=== PATIENT | male | born 1945 | race Caucasian/White ===

== ENCOUNTER 2021-07-25 15:35 | Emergency (ER) | payer OTHER, SELFPAY ==
[2021-07-25 15:58] VITALS: BP 118/73; PULSE 83; RESP 18; TEMP 36.5; O2SAT 98
[2021-07-25 19:29] LABS: Glucose Point of Care 233 mg/dl (65-105)
[2021-07-25 21:25] VITALS: BP 128/71; PULSE 83; RESP 16; O2SAT 100
[2021-07-25 21:44] LABS: Basophils Absolute Auto 0.1 K/mm3 (0.0-0.1); Basophils Percent Auto 0.6 % (0.2-1.2); Eosinophils Absolute Auto 0.1 K/mm3 (0-0.3); Hematocrit 38.7 % (42.0-52.0); Hemoglobin 12.1 g/dL (14.0-18.0); Immature Granulocyte Absolute 0.05 K/mm3 (0.00-0.031); Immature Granulocyte Percent A 0.6 % (0-0.5); Lymphocytes Percent Auto 27.7 % (18.3-44.2); Mean Corpuscular HGB Conc 31.3 g/dl (32-36); Mean Corpuscular Hemoglobin 29.2 pg (26-34); Mean Corpuscular Volume 93.5 fl (80-100); Mean Platelet Volume 10.5 fl (7.4-10.4); Monocytes Absolute Auto 0.9 K/mm3 (0.1-0.6); Monocytes Percent Auto 11.2 % (2.6-8.5); Neutrophils Absolute Auto 4.7 K/mm3 (1.3-6.7); Neutrophils Percent Auto 58.9 % (45.5-73.1); Platelet Count Result 302 k/mm3 (150-375); Red Blood Count 4.14 M/mm3 (4.6-6.20); Red Cell Distribution Width 17.3 % (11.5-14.5)
[2021-07-25 21:48] LABS: INR 1.1; Prothrombin Time 13.7 Seconds (11.1-14.7)
[2021-07-25 21:49] LABS: Partial Thromboplastin Time 27.4 SECONDS (22.3-36.8)
[2021-07-25 21:51] LABS: Alanine Aminotransferase 22 U/L (4-50); Albumin Level 4.2 g/dL (3.5-5.1); Alkaline Phosphatase 198 U/L (38-126); Anion Gap 11 mmol/L (8-16); Aspartate Amino Transferase 42 U/L (17-59); Bilirubin,Total 0.4 mg/dL (0.2-1.3); Blood Urea Nitrogen 100 mg/dL (9-20); Carbon Dioxide 30 mmol/L (22-30); Chloride 102 mmol/L (98-107); Estimated CRCL calculation 13 ml/min; Estimated Glomerular Filt Rate 15; Glucose 272 mg/dL (65-110); Potassium 4.6 mmol/L (3.4-5.0); Sodium 143 mmol/L (137-145)
[2021-07-25 23:25] LABS: Glucose Point of Care 240 mg/dl (65-105)
[2021-07-25 23:59] VITALS: BP 139/67; PULSE 78; RESP 17; TEMP 36.6; O2SAT 98
[2021-07-26] VITALS (16 sets, daily range): BP systolic 94–159; BP diastolic 65–74; PULSE 67–86; RESP 20; O2SAT 98–100
[2021-07-26] MEDS: SODIUM CHLORIDE 0.9% IV 1,000 ML 999 ML IV CONT (00:20)
--- NOTE | 2021-07-26 01:22 | PC.NURSE ---
Patient states he feels much better. ERP notified.
--- NOTE | 2021-07-26 01:42 | ED.GIBLEED ---
HPI - GI Bleed General Chief complaint: GI Bleed Stated complaint: bright red blood in stool. Time Seen by Provider: 07/25/21 23:22 History of Present Illness HPI Narrative: Patient is a 76-year-old male who presents ER with concerns for rectal bleeding. Reports yesterday he was straining to have bowel movement because he has been having small hard stools. When he finally had a large bowel movement he noted that there were streaks of blood mixed in with the stool. There is no large watery red bowel movement filling up the toilet with blood. This occurred 1 time. No additional bleeding since then. Patient has history of upper GI bleed that required blood transfusion several months back at [facility] after he had an open heart surgery. It was found that he had a bleed in his stomach that required a clip. This was performed by Dr. Cardoso. Patient still takes a baby aspirin but is on no other blood thinning medications. No chest pain or chest pressure. No loss consciousness. Patient does take iron. Related Data Allergies Allergy/AdvReac Type Severity Reaction Status Date / Time oxytetracycline Allergy Other Verified 07/25/21 15:38 [From Terramycin] Penicillins Allergy Other Verified 07/25/21 15:38 Review of Systems Review of Systems: All systems reviewed & are unremarkable except as noted in HPI and below Constitutional: Constitutional: Denies chills, Denies fever(s) and Denies weakness ENT: Denies dizziness and Denies sore throat Cardiovascular: Cardiovascular: Denies chest pain, Denies rapid heart rate and Denies radiating jaw, neck or arm pain Respiratory: Respiratory: Denies cough, Denies dyspnea and Denies wheezing Gastrointestinal: Gastrointestinal: Denies abdominal pain, Reports constipation, Denies nausea and Denies vomiting Comments: Blood per rectum PMFSH Past Medical History Medical History (Updated 07/26/21 @ 01:56 by Jass Ramirez MD) CKD (chronic kidney disease), stage V Coronary artery disease Diabetes Hypertension Upper GI bleed Surgical History Surgical History (Updated 07/26/21 @ 01:56 by Jass Ramirez MD) History of esophagogastroduodenoscopy (EGD) Hx of CABG Exam Narrative: GENERAL: Well-appearing, well-nourished, and in no acute distress. HEAD: Normocephalic, atraumatic. ENT: Mucous membranes moist. CHEST: Clear to auscultation. No respiratory distress. HEART: Regular rate and rhythm. Normal peripheral pulses. ABDOMEN: Soft, nontender, nondistended. External hemorrhoids or rectal fissures. Normal rectal tone. Hard small stool within the rectal vault. No gross blood on exam. Stool is guaiac positive. EXTREMITIES: Normal range of motion. No edema. SKIN: Warm, dry, no rash. NEURO: Alert and oriented x3. PSYCH: Normal mood and affect. Course Course Emergency Course: Orthostatics improved with IV fluid. Discussed at length with patient and family the patient's lab results, they do not know how to access my chart on the phone to give me comparable labs. Patient reports he is in CKD stage V. No active bleeding today and it was all yesterday. Encourage patient increase his fluid intake. Recommend he follow-up with his GI physician [facility] and if he is having additional issues he should take an ambulance to [facility]. Patient and family verbalized understanding. Vital Signs Vital signs: Vital Signs Temperature 97.7 F 07/25/21 15:58 Pulse Rate 83 07/25/21 15:58 Respiratory Rate 18 07/25/21 15:58 Blood Pressure 118/73 07/25/21 15:58 Pulse Oximetry 98 07/25/21 15:58 Temperature 97.9 F 07/25/21 23:59 Pulse Rate 77 07/26/21 01:18 Respiratory Rate 17 07/25/21 23:59 Blood Pressure 159/72 H 07/26/21 01:18 Pulse Oximetry 98 07/25/21 23:59 MDM - GI Bleed Lab Data Result diagrams: 07/25/21 21:31 07/25/21 21:31 Labs: Lab Results 07/25/21 07/25/21 07/25/21 Range/Units
== END 2021-07-26 01:58 | disposition home or self-care (01) ==
PROVIDERS: Emergency Provider Emergency Medicine; PCP Internal Medicine
DX: K62.5 Hemorrhage of anus and rectum (principal); E86.0 Dehydration; E11.22 Type 2 diabetes mellitus with diabetic chronic kidney disease; I12.0 Hypertensive chronic kidney disease with stage 5 chronic kidney disease or end stage renal disease; N18.5 Chronic kidney disease, stage 5; I25.10 Atherosclerotic heart disease of native coronary artery without angina pectoris; Z95.1 Presence of aortocoronary bypass graft
CPT/HCPCS: 36415; 80053; 82948; 85025; 85610; 85730; 86850; 86900; 86901; 96360; 99283; J7030

== ENCOUNTER 2021-10-20 16:11 | Outpatient (CLI) | payer OTHER, SELFPAY ==
[2021-10-20 17:08] LABS: Anion Gap 8 mmol/L (8-16); Blood Urea Nitrogen 110 mg/dL (9-20); Calcium 9.2 mg/dL (8.4-10.2); Carbon Dioxide 32 mmol/L (22-30); Chloride 100 mmol/L (98-107); Estimated Glomerular Filt Rate 14; Glucose 237 mg/dL (65-110); Potassium 3.7 mmol/L (3.4-5.0); Sodium 140 mmol/L (137-145)
[2021-10-20 17:15] LABS: NT Pro B Type Natriuretic Pept 1660 pg/mL (5-100)
== END 2021-10-20 16:12 | disposition home or self-care (01) ==
PROVIDERS: PCP Internal Medicine
DX: I50.43 Acute on chronic combined systolic (congestive) and diastolic (congestive) heart failure (principal); I25.118 Atherosclerotic heart disease of native coronary artery with other forms of angina pectoris; I48.0 Paroxysmal atrial fibrillation; I34.0 Nonrheumatic mitral (valve) insufficiency
CPT/HCPCS: 36415; 80048; 83880; 93798

== ENCOUNTER 2021-12-11 15:00 | Outpatient (RCR) | payer OTHER, SELFPAY ==
[2021-11-10 16:09] LABS: Glucose Point of Care 381 mg/dl (65-105)
[2021-12-08 16:12] LABS: Glucose Point of Care 116 mg/dl (65-105)
[2021-12-08 16:12] LABS: Glucose Point of Care 107 mg/dl (65-105)
== END 2021-12-11 18:02 | disposition home or self-care (01) ==
LOC: ANHCPREHAB 15:00
PROVIDERS: PCP Internal Medicine
DX: Z95.1 Presence of aortocoronary bypass graft (principal); I50.89 Other heart failure
CPT/HCPCS: 93798

== ENCOUNTER 2022-05-12 09:23 | Outpatient (CLI) | payer OTHER, SELFPAY ==
[2022-05-12 09:44] LABS: Basophils Absolute Auto 0.1 K/mm3 (0.0-0.1); Basophils Percent Auto 0.9 % (0.2-1.2); Eosinophils Absolute Auto 0.2 K/mm3 (0-0.3); Hematocrit 32.6 % (42.0-52.0); Hemoglobin 10.2 g/dL (14.0-18.0); Immature Granulocyte Absolute 0.02 K/mm3 (0.00-0.031); Immature Granulocyte Percent A 0.3 % (0-0.5); Lymphocytes Absolute Auto 2.35 K/mm3 (0.9-3.2); Lymphocytes Percent Auto 29.7 % (18.3-44.2); Mean Corpuscular HGB Conc 31.3 g/dl (32-36); Mean Corpuscular Hemoglobin 29.8 pg (26-34); Mean Corpuscular Volume 95.3 fl (80-100); Mean Platelet Volume 11.1 fl (7.4-10.4); Monocytes Percent Auto 12.7 % (2.6-8.5); Neutrophils Absolute Auto 4.2 K/mm3 (1.3-6.7); Neutrophils Percent Auto 53.4 % (45.5-73.1); Platelet Count Result 203 k/mm3 (150-375); Red Blood Count 3.42 M/mm3 (4.6-6.20); Red Cell Distribution Width 14.3 % (11.5-14.5); White Blood Count 7.9 K/mm3 (4.5-10.0)
[2022-05-12 09:56] LABS: Albumin Level 4.2 g/dL (3.5-5.1); Anion Gap 8 mmol/L (8-16); Blood Urea Nitrogen 117 mg/dL (9-20); Calcium 9.7 mg/dL (8.4-10.2); Carbon Dioxide 32 mmol/L (22-30); Chloride 101 mmol/L (98-107); Estimated Glomerular Filt Rate 20; Glucose 171 mg/dL (65-110); Phosphorus 4.6 mg/dL (2.5-4.5); Potassium 3.2 mmol/L (3.4-5.0); Sodium 141 mmol/L (137-145); Uric Acid 7.5 mg/dL (3.5-8.5)
[2022-05-12 10:06] LABS: Parathyroid Intact 35.7 pg/mL (7.5-53.5)
[2022-05-12 10:29] LABS: Appearance Urine Clear (Clear); Bilirubin Urine Negative (Negative); Blood Urine Trace-lysed (Negative); Color Urine Yellow (Yellow); Glucose Urine UA Negative (Negative); Ketones Urine Negative (Negative); Leukocyte Esterase Ur Negative LEU/UL (NEGATIVE); Nitrate Urine Negative (Negative); Protein Urine 1+ mg/dL (Negative); Urobilinogen Urine 0.2 mg/dL (<2.0); pH Urine 5.5 (5.0-9.0)
[2022-05-12 10:33] LABS: Creatinine Urine 33.9 mg/dL
[2022-05-12 11:00] LABS: Mucus Urine Rare /lpf; RBC Urine 0-2 /hpf (0-2); WBC Urine 0-3 /hpf (0-3)
[2022-05-12 11:02] LABS: Add Urine Microscopic? YES
[2022-05-12 11:03] LABS: MALB Creatinine Ratio 747.5 mg/g (0-30); Microalbumin Urine Random 253.4 mg/L (0-16.7)
== END 2022-05-12 09:24 | disposition home or self-care (01) ==
LOC: ANHLAB 09:26
PROVIDERS: PCP Internal Medicine; Visit Provider Internal Medicine Nephrology
DX: N18.4 Chronic kidney disease, stage 4 (severe) (principal)
CPT/HCPCS: 36415; 80069; 81001; 82043; 83970; 84550; 85025

== ENCOUNTER 2022-06-11 16:10 | Outpatient (CLI) | payer OTHER, SELFPAY ==
--- NOTE | ~2022-06-11 | US_ITS ---
US pelvic limited 06/11/2022 16:52 Indication: Prostatism. Procedure: High-resolution ultrasound of the pelvis using transabdominal technique Comparison: No prior studies for comparison. Findings: Prostate is enlarged measuring 5.1 x 4.1 x 3.3 cm for a volume of 36.07 cc. Prevoid bladder volume is 2 39 cc. Post void bladder volume is 38 cc. Bilateral ureteral jets are present. Impression: 1: Enlarged prostate gland. 2: Small post void residual. Reviewed, dictated and finalized at location A. STANT PROPERTY MANAGER Impression: 1: Enlarged prostate gland. 2: Small post void residual.
== END 2022-06-11 16:11 | disposition home or self-care (01) ==
LOC: ANHIMG 16:11
PROVIDERS: PCP Internal Medicine; Visit Provider Internal Medicine Nephrology
DX: N40.0 Benign prostatic hyperplasia without lower urinary tract symptoms (principal)
CPT/HCPCS: 76857

== ENCOUNTER 2022-07-02 17:05 | Emergency (ER) | payer OTHER, SELFPAY ==
[2022-07-02] VITALS (16 sets, daily range): BP systolic 113–144; BP diastolic 68–93; PULSE 66–89; RESP 11–31; TEMP 36.6–37.2; O2SAT 89–99
--- NOTE | ~2022-07-02 | CT_ITS ---
EXAMINATION: CT brain wo con DATE: 07/02/2022 18:27 INDICATION: Multiple falls with head injury TECHNIQUE: Computed tomography (CT) of the head was performed without intravenous contrast. Sagittal and coronal reconstructions were performed. The mA was adjusted according to patient size. Iterative reconstruction technique was employed. The dose-length product was 605.33 mGy-cm. COMPARISON: None FINDINGS: No fracture. Small regions of encephalomalacia consistent with old infarcts in the bilateral parietal lobes. Additional small old lacunar infarcts at the bilateral basal ganglia. There is moderate scatt ered white matter hypoattenuation consistent with chronic small vessel ischemic disease. No acute in tracranial hemorrhage, acute infarction or abnormal extra axial fluid collection. Symmetric prominenc e of the sulci consistent with mild age-appropriate diffuse cerebral volume loss. Ventricles are norm al and symmetric. No mass/mass effect. Changes of left intraocular lens replacement. The orbits, para nasal sinuses and mastoid air cells are normal. IMPRESSION: 1. No fracture or acute intracranial process. 2. A few small infarcts at the bilateral basal ganglia and bilateral parietal lobes. 3. Age-related changes including mild diffuse volume loss and moderate scattered white matter hypoatt enuation consistent with chronic small vessel ischemic disease. Reviewed, dictated and finalized at location A. REGISTER REPAIRER IMPRESSION: 1. No fracture or acute intracranial process. 2. A few small infarcts at the bilateral basal ganglia and bilateral parietal l obes. 3. Age-related changes including mild diffuse volume loss and moderate scattere d white matter hypoattenuation consistent with chronic small vessel ischemic di sease.
--- NOTE | ~2022-07-02 | CT_ITS ---
EXAMINATION: CT abdomen pelvis wo con DATE: 07/02/2022 18:34 INDICATION: Multiple falls. Vomiting. TECHNIQUE: Computed tomography (CT) of the abdomen and pelvis was performed without intravenous contr ast. Automated exposure control and iterative reconstruction technique were employed. The dose-length product was 689.34 mGy-cm. COMPARISON: None FINDINGS: Several small calcified nodules in the right middle and bilateral lower lobes along with calcified bi lateral hilar and mediastinal lymph nodes consistent with old granulomatous disease. Mild discoid ate lectasis in the lingula and right middle lobe. Mild cardiomegaly. Extensive atherosclerotic coronary artery calcifications. Postoperative change of prior median sternotomy and coronary artery bypass gra fting. No pericardial or pleural effusion. Small sliding-type hiatal hernia. Minimal ascites along th e normal liver and normal decompressed gallbladder. There are few small calcifications in the spleen consistent with old granulomatous disease. Mild fatty atrophy of the pancreas. Bilateral adrenal glan ds are normal. There is calcified atherosclerosis of the aorta and many of the other arteries includi ng multiple arteries at the bilateral renal coty. Mild bilateral diffuse renal cortical atrophy. Olamide ls including the appendix are normal. Mild mesenteric and retroperitoneal edema. There is haziness to the fat surrounding the normal partially decompressed bladder. Marked prostatomegaly. No abscess or free intraperitoneal gas. No pathologically enlarged abdominal or pelvic lymphadenopathy. Moderate th oracic and moderate to severe lower lumbar spondylosis. Chronic mild anterior wedging couple lower th oracic vertebral bodies along with bridging osteophytes at multiple levels consistent with diffuse id iopathic skeletal hyperostosis (DISH). IMPRESSION: 1. Nonspecific minimal ascites along the liver and gallbladder. 2. Mild cardiomegaly. 3. Small sliding-type hiatal hernia. 4. Mild haziness to the fat surrounding the normal-appearing partially decompressed bladder which cou ld be seen with cystitis. Correlate with urinalysis. 5. Prostatomegaly. Reviewed, dictated and finalized at location A. RDING STUDIO INTERN IMPRESSION: 1. Nonspecific minimal ascites along the liver and gallbladder. 2. Mild cardiomegaly. 3. Small sliding-type hiatal hernia. 4. Mild haziness to the fat surrounding the normal-appearing partially decompre ssed bladder which could be seen with cystitis. Correlate with urinalysis. 5. Prostatomegaly.
--- NOTE | ~2022-07-02 | CT_ITS ---
EXAMINATION: CT cervical spine wo con DATE: 07/02/2022 18:29 INDICATION: Multiple falls with head injury. TECHNIQUE: Computed tomography (CT) of the cervical spine was performed without intravenous contrast. Automated exposure control and iterative reconstruction technique were employed. The dose-length pro duct was 519.11 mGy-cm. COMPARISON: None FINDINGS: A degree lower cervical levocurvature. 1-2 mm anterolisthesis C4 on C5. C5-C6 anterior spinal fusion with anterior plate and screw fixation. Diffuse vertebral body heights are normal. No acute fracture. Severe disc height loss at C6-C7 with irregular endplates appear to be progressing pleural effusion but without plate and screw fixation. Mild disc height loss at C3-C4, C4-C5, C7-T1 and T1-T2. Moderat e disc height loss at T2-T3 and T3-T4. Mild hypertrophic endplate changes posteriorly at C5-C6 and C6 -C7 resulting in mild central canal stenosis. Multilevel moderate to severe bilateral cervical facet osteoarthritis along with bilateral moderate to severe uncovertebral osteoarthritis at many of the un fused cervical levels. This contributes to neural foraminal stenosis, moderate bilaterally at C3-C4 a nd C4-C5 and mild at many of the remaining cervical levels. Atherosclerotic calcific a cyst at the bi lateral carotid bulbs. Smooth septal line thickening consistent with mild pulmonary edema at the bila teral upper lung zones. IMPRESSION: 1. No acute osseous abnormality. 2. Mild cervical levocurvature with asymmetric anterior spinal fusion at C5-C6 and severe disc height loss consistent with the attempted anterior spinal fusion without a segmentation or severe spondylos is at C6-C7. 2. Mild to moderate spondylosis throughout the remainder of the cervical and visualized upper thoraci c spine. Reviewed, dictated and finalized at location A. CH CHECKER IMPRESSION: 1. No acute osseous abnormality. 2. Mild cervical levocurvature with asymmetric anterior spinal fusion at C5-C6 and severe disc height loss consistent with the attempted anterior spinal fusio n without a segmentation or severe spondylosis at C6-C7. 2. Mild to moderate spondylosis throughout the remainder of the cervical and vi sualized upper thoracic spine.
--- NOTE | 2022-07-02 17:23 | ECG_ITS ---
Measurements Intervals [place] Rate: 68 P: 49 IA: 201 QRS: -49 QRSD: 149 T: 91 QT: 465 QTc: 498 Interpretive Statements SINUS RHYTHM FREQUENT VENTRICULAR PREMATURE COMPLEXES LEFT AXIS DEVIATION BORDERLINE AV CONDUCTION DELAY POSSIBLE LEFT ATRIAL ENLARGEMENT INTRAVENTRICULAR CONDUCTION DELAY BORDERLINE ST-T WAVE ABNORMALITY- HIGH LATERAL LEADS BASELINE ARTIFACT- II, III ABNORMAL ECG NO PREVIOUS ECG AVAILABLE FOR COMPARISON Electronically Signed On 07-03-2022 6:40:36 HYDRAULIC DREDGE OPERATOR by Wilder Wesley D.O.
--- NOTE | 2022-07-02 17:34 | ECG_ITS ---
Measurements Intervals [place] Rate: 65 P: 52 AL: 203 QRS: -54 QRSD: 150 T: 90 QT: 477 QTc: 498 Interpretive Statements SINUS RHYTHM VENTRICULAR COUPLET AND VENTRICULAR PREMATURE COMPLEX BORDERLINE AV CONDUCTION DELAY LEFT BUNDLE BRANCH BLOCK WITH INTERMITTENT NARROW QRS COMPLEXES BASELINE ARTIFACT- I, III, AVR, AVL, AVF, V3-V6 ABNORMAL ECG NO PREVIOUS ECG AVAILABLE FOR COMPARISON Electronically Signed On 07-06-2022 7:55:52 CDT by Wilder Wesley D.O.
[2022-07-02 17:57] LABS: Basophils Absolute Auto 0.1 K/mm3 (0.0-0.1); Eosinophils Absolute Auto 0.1 K/mm3 (0-0.3); Eosinophils Percent Auto 1.5 % (0-4.4); Hematocrit 32.5 % (42.0-52.0); Hemoglobin 10.2 g/dL (14.0-18.0); Immature Granulocyte Absolute 0.04 K/mm3 (0.00-0.031); Immature Granulocyte Percent A 0.4 % (0-0.5); Lymphocytes Absolute Auto 1.15 K/mm3 (0.9-3.2); Lymphocytes Percent Auto 12.5 % (18.3-44.2); Mean Corpuscular HGB Conc 31.4 g/dl (32-36); Mean Corpuscular Hemoglobin 29.8 pg (26-34); Mean Platelet Volume 12.1 fl (7.4-10.4); Monocytes Absolute Auto 1.3 K/mm3 (0.1-0.6); Monocytes Percent Auto 14.6 % (2.6-8.5); Neutrophils Absolute Auto 6.4 K/mm3 (1.3-6.7); Platelet Count Result 234 k/mm3 (150-375); Red Blood Count 3.42 M/mm3 (4.6-6.20); Red Cell Distribution Width 17.1 % (11.5-14.5); White Blood Count 9.2 K/mm3 (4.5-10.0)
[2022-07-02 18:06] LABS: Appearance Urine Clear (Clear); Bacteria Urine None Seen /hpf; Bilirubin Urine Negative (Negative); Blood Urine 2+ (Negative); Color Urine Yellow (Yellow); Glucose Urine UA Negative (Negative); Ketones Urine Negative (Negative); Leukocyte Esterase Ur Negative LEU/UL (Negative); Nitrate Urine Negative (Negative); Non Pathogenic Casts 0-2; Protein Urine 2+ mg/dL (Negative); RBC Urine 0-2 /hpf (0-2); Specific Grav Ur 1.014 (1.001-1.035); Squamous Epithelial Cell Urine None seen /hpf (Few); Urobilinogen Urine 0.2 mg/dL (<2.0); WBC Urine 0-5 /hpf
[2022-07-02 18:11] LABS: Add Urine Microscopic? YES; Alanine Aminotransferase 102 U/L (6-50); Alkaline Phosphatase 165 U/L (38-126); Anion Gap 10 mmol/L (8-16); Aspartate Amino Transferase 169 U/L (17-59); Bilirubin,Total 0.7 mg/dL (0.2-1.3); Calcium 9.8 mg/dL (8.4-10.2); Carbon Dioxide 26 mmol/L (22-30); Chloride 102 mmol/L (98-107); Estimated CRCL calculation 13 ml/min; Estimated Glomerular Filt Rate 14; Glucose 174 mg/dL (65-110); Lipase 152 U/L (23-300); Potassium 3.8 mmol/L (3.4-5.0); Sodium 138 mmol/L (137-145)
--- NOTE | 2022-07-02 18:15 | ED.NAVMDI ---
HPI - Nausea/Vomiting/Diarrhea General Chief complaint: Nausea/Vomiting/Diarrhea Stated complaint: ncreased falls, n/v Time Seen by Provider: 07/02/22 17:19 History of Present Illness HPI Narrative: Patient is a 77-year-old male with a history of hypertension, CKD, hyperlipidemia presenting with falls. Patient is coming from a nursing facility. He is reportedly had multiple falls over the last several days. Patient is a poor historian. He states that he fell once several days ago. States that he struck his head but did not lose consciousness. Denies headaches, neck pain, back pain, numbness or weakness. Today while in the dinner room, patient was noted to have 2 episodes of emesis so EMS was called. Currently, the patient denies any complaints other than feeling like he needs to urinate. Denies current nausea, abdominal pain, diarrhea, constipation, dysuria. Denies fevers, chest pain, shortness of breath, cough. Related Data Home Medications Medication Instructions Recorded Confirmed acetaminophen 500 mg tablet 1,000 mg PO QID PRN Pain 09/19/21 07/03/22 aspirin 81 mg tablet 81 mg PO DAILY 09/19/21 07/03/22 atorvastatin 40 mg tablet 40 mg PO HS 09/19/21 07/03/22 fenofibrate 120 mg tablet 134 mg PO DAILY 09/19/21 07/03/22 furosemide 40 mg tablet 40 mg PO BID 09/19/21 07/03/22 metoprolol succinate 25 mg 25 mg PO DAILY 09/19/21 07/03/22 tablet,extended release 24 hr omega 6-gbd-okm-fish oil 1,200 mg 1,200 cap PO DAILY 09/19/21 07/03/22 (144 mg-216 mg) capsule (Fish Oil) pantoprazole 40 mg tablet,delayed 40 mg PO BID 09/19/21 07/03/22 release polysaccharide iron complex 150 mg 150 mg PO BID 09/19/21 07/03/22 iron capsule (iFerex 150) tamsulosin 0.4 mg capsule 0.4 mg PO HS 09/19/21 07/03/22 tramadol 50 mg tablet 50 mg PO Q6H 09/19/21 07/03/22 Tums 500 500 mg PO DAILY PRN Acid Reflux 07/03/22 07/03/22 allopurinol 100 mg tablet 100 mg PO DAILY 07/03/22 07/03/22 calcitriol 0.25 mcg capsule 0.25 mcg PO DAILY 07/03/22 07/03/22 insulin aspart U-100 100 unit/mL 1 sliding scale dose subcut 07/03/22 07/03/22 subcutaneous solution (Novolog USEASDIRECTD U-100 Insulin aspart) insulin glargine U-300 conc 300 26 unit subcut DAILY 07/03/22 07/03/22 unit/mL (1.5 mL) subcutaneous pen (Toujeo SoloStar U-300 Insulin) polyethylene glycol 3350 17 gram 17 g PO DAILY PRN Constipation 07/03/22 07/03/22 oral powder packet (Miralax) senna 374 mg tablet 374 mg PO DAILY PRN Constipation 07/03/22 07/03/22 Allergies Allergy/AdvReac Type Severity Reaction Status Date / Time oxytetracycline Allergy Other Verified 07/03/22 16:04 [From Terramycin] Penicillins Allergy Other Verified 07/03/22 16:04 Review of Systems Review of Systems: All systems reviewed & are unremarkable except as noted in HPI and below PMFSH Past Medical History Medical History Chronic kidney disease, stage 4 (severe) Chronic pain syndrome Coronary artery disease Heart failure with reduced ejection fraction EF reportedly as low as 45 to 50%. Hypertension Insulin dependent type 2 diabetes mellitus Transient ischemic attack Upper GI bleed Surgical History Surgical History History of coronary artery bypass graft History of coronary artery stent placement History of esophagogastroduodenoscopy (EGD) Family History Family History Other Diabetes mellitus Hypertension Social History Social History Social History: Surrogate medical decision maker: Caty Staley, daughter. Code status: Full code. Smoking status: Never smoker Alcohol intake: never Substance use: never Lack of Transportation: YES Lack of Food: Never True Current Housing: I Have Housing Concerned About Future Housing: No Difficulty Paying Gas/Electric Bills
--- NOTE | 2022-07-02 18:26 | PC.NURSE ---
Pt to CT
[2022-07-02 18:38] LABS: Blood Urea Nitrogen 137 mg/dL (9-20)
[2022-07-02] MEDS: LACTATED RINGERS 1,000 ML 999 ML IV CONT (19:04)
[2022-07-02] MEDS: HYDROcodone/acetaminophen (*CRX) 5-325 MG TABLET 1 TAB PO (19:47)
== END 2022-07-02 22:17 ==
PROVIDERS: Emergency Provider Emergency Medicine; PCP Internal Medicine
DX: N17.9 Acute kidney failure, unspecified (principal); I12.9 Hypertensive chronic kidney disease with stage 1 through stage 4 chronic kidney disease, or unspecified chronic kidney disease; E11.22 Type 2 diabetes mellitus with diabetic chronic kidney disease; N18.4 Chronic kidney disease, stage 4 (severe); Z86.73 Personal history of transient ischemic attack (TIA), and cerebral infarction without residual deficits; Z95.1 Presence of aortocoronary bypass graft; Z95.5 Presence of coronary angioplasty implant and graft; Z79.82 Long term (current) use of aspirin; Z79.4 Long term (current) use of insulin; R00.8 Other abnormalities of heart beat; I44.7 Left bundle-branch block, unspecified; R94.31 Abnormal electrocardiogram [ECG] [EKG]; W19.XXXA Unspecified fall, initial encounter
CPT/HCPCS: 36415; 70450; 72125; 74176; 80053; 81001; 83690; 85025; 93005; 96360; 96361; 99284; A9270; J7120

== ENCOUNTER 2022-07-03 12:06 | Inpatient (IN) | payer OTHER, MEDICAID, SELFPAY ==
[2022-07-03] VITALS (21 sets, daily range): BP systolic 122–146; BP diastolic 65–89; PULSE 51–91; RESP 13–28; TEMP 36.2–37.2; O2SAT 90–99; BMI 28.0
--- NOTE | ~2022-07-03 | XR_ITS ---
EXAMINATION: XR chest 2V DATE: 07/06/2022 09:31 INDICATION: Congestive heart failure. TECHNIQUE: Frontal and lateral views of the chest were obtained. COMPARISON: CT abdomen and pelvis 07/02/2022 FINDINGS: There is a diffuse interstitial pattern, consistent with mild pulmonary edema. No pleural e ffusion or pneumothorax. Cardiomegaly is noted. Median sternotomy wires and mediastinal surgical clip s are seen, likely from prior coronary artery bypass grafting. IMPRESSION: 1. Mild pulmonary edema. 2. Cardiomegaly. Reviewed, dictated and finalized at location A.
--- NOTE | ~2022-07-03 | CT_ITS ---
EXAMINATION: CT brain wo con DATE: 07/04/2022 08:34 INDICATION: Dizziness and vision changes post fall one day prior TECHNIQUE: Computed tomography (CT) of the head was performed without intravenous contrast. Sagittal and coronal reconstructions were performed. The mA was adjusted according to patient size. Iterative reconstruction technique was employed. The dose-length product was 605.33 mGy-cm. COMPARISON: head CT dated 07/02/2022 FINDINGS: No fracture. Unchanged small regions of encephalomalacia consistent with old infarcts in the right oc cipital and bilateral parietal lobes. Additional small old lacunar infarcts at the bilateral basal ga nglia. Moderate scattered white matter hypoattenuation consistent with chronic small vessel ischemic disease. No acute intracranial hemorrhage, acute infarction or abnormal extra axial fluid collection. Symmetric prominence of the sulci consistent with mild age-appropriate diffuse cerebral volume loss. Ventricles are normal and symmetric. No mass/mass effect. Changes of left intraocular lens replaceme nt. The orbits, paranasal sinuses and mastoid air cells are normal. Intracranial calcified cerebral a therosclerosis is noted. IMPRESSION: 1. No fracture or acute intracranial process. 2. A few small old infarcts at the bilateral basal ganglia and bilateral parietal and right occipital lobes. 3. Age-related changes including mild diffuse volume loss and moderate scattered white matter hypoattenuation consistent with chronic small vessel ischemic disease. Reviewed, dictated and finalized at location A. TRUCTION PROJECT MGR IMPRESSION: 1. No fracture or acute intracranial process. 2. A few small old infarcts at the bilateral basal ganglia and bilateral pariet al and right occipital lobes. 3. Age-related changes including mild diffuse volume loss and moderate scattere d white matter hypoattenuation consistent with chronic small vessel ischemic disease.
--- NOTE | ~2022-07-03 | US_ITS ---
EXAMINATION: US abdomen limited DATE: 07/04/2022 08:52 INDICATION: Elevated liver function tests TECHNIQUE: Multiple grayscale and Doppler ultrasound images of the abdomen were obtained. COMPARISON: 07/02/2022 FINDINGS: The pancreatic head and body are normal in appearance. The pancreatic tail is not visualized. The vi sualized proximal to mid inferior vena cava is normal. Liver has normal echogenicity and contour, wit h a smooth surface. No liver lesion identified. No intrahepatic biliary duct dilation suspected. Port al venous flow was seen in the hepatopetal, normal direction and has normal Doppler waveform. The gal lbladder is normal in appearance. There is no cholelithiasis. The common bile duct measures 5-6 and mm, which is normal. Small amount of perihepatic ascites. Sonographic Gross sign was reported as neg ative by the supervisor plating and point assembly.Visualized portion of the right kidney demonstrates normal contour and echog enicity without hydronephrosis. IMPRESSION: 1. Nonspecific small amount of perihepatic ascites. Otherwise normal right upper quadrant ultrasound. Reviewed, dictated and finalized at location A. ITY TECHNICIAN IMPRESSION: 1. Nonspecific small amount of perihepatic ascites. Otherwise normal right uppe r quadrant ultrasound.
--- NOTE | ~2022-07-03 | US_ITS ---
EXAMINATION: US renal BI DATE: 07/04/2022 11:20 INDICATION: Renal insufficiency with elevated creatinine TECHNIQUE: Multiple ultrasound grayscale images of the kidneys were obtained. COMPARISON: CT dated 07/12/2022 FINDINGS: The right kidney measures 11.5 x 6.3 x 4.6 cm. The left kidney measures 11.2 x 6.1 x 5.5 cm. The kidn eys demonstrate normal echogenicity. There is no hydronephrosis in either kidney. No stones identifi ed. The bladder is normal. IMPRESSION: 1. Normal kidneys without hydronephrosis. Reviewed, dictated and finalized at location A. ISHING SPECIALIST
--- NOTE | ~2022-07-03 | MR_ITS ---
EXAMINATION: MR brain/brain stem wo con DATE: 07/04/2022 09:05 INDICATION: Visual changes, dizziness and frequent falls TECHNIQUE: Magnetic resonance imaging (MRI) of the brain and brainstem was performed without intraven ous contrast. Sequences included sagittal and axial T1-weighted SE, axial diffusion-weighted FS SE, a xial T2*-weighted GRE, axial T2-weighted FLAIR, and axial T2-weighted FSE. Postcontrast axial and cor onal T1-weighted SE was obtained. Apparent diffusion coefficient (ADC) maps were created. COMPARISON: CT dated 07/02/2022 FINDINGS: Small region of encephalomalacia consistent with chronic infarcts in the bilateral parietal and right occipital lobes. Additional small old lacunar infarcts at the bilateral basal ganglia. There are no areas of restricted diffusion to suggest acute infarction. No intracranial hemorrhage or abnormal int racranial mass lesion. There are scattered areas of nonspecific increased T2-weighted signal intensit y in the cerebral white matter, predominantly involving the deep and periventricular white matter. Th ere are no intraparenchymal signal abnormalities seen on the other pulse sequences. Symmetric promine nce of the sulci consistent with mild age-appropriate diffuse cerebral volume loss. The ventricles a re symmetric and normal in size. There are no abnormal extra-axial fluid collections. Flow voids are seen in the cerebral arteries on the T2-weighted sequences consistent with their expected patency. Le ft vertebral artery is dominant. Changes of left intraocular lens replacement. Visualized orbits and soft tissues are unremarkable. IMPRESSION: 1. No acute intracranial process. 2. Small old infarcts at the bilateral basal ganglia, right occipital and bilateral parietal lobes Reviewed, dictated and finalized at location A. R TESTING SUPERVISOR IMPRESSION: 1. No acute intracranial process. 2. Small old infarcts at the bilateral basal ganglia, right occipital and bilat eral parietal lobes
--- NOTE | 2022-07-03 12:27 | ED.GENADULT ---
HPI - General Adult General Chief complaint: Weakness Stated complaint: weakness Time Seen by Provider: 07/03/22 12:07 History of Present Illness HPI narrative: 77-year-old male with history of chronic kidney disease, hypertension, diabetes presenting the emergency department for increased generalized weakness. Patient was evaluated in the emergency department yesterday and was found to have a significant increase in his creatinine and BUN. Patient also had a work-up for injuries which showed negative CTs. Patient was offered admission yesterday but declined. Patient reports today he had increased generalized weakness and did have a short period of double vision and presented to the emergency department for evaluation. Patient states he is willing to be admitted at this time. At time of evaluation patient denies any chest pain shortness of breath nausea vomiting diarrhea dizziness lightheadedness weakness or double vision. Related Data Home Medications Medication Instructions Recorded Confirmed acetaminophen 500 mg tablet 1,000 mg PO QID PRN Pain 09/19/21 07/03/22 aspirin 81 mg tablet 81 mg PO DAILY 09/19/21 07/03/22 atorvastatin 40 mg tablet 40 mg PO HS 09/19/21 07/03/22 fenofibrate 120 mg tablet 134 mg PO DAILY 09/19/21 07/03/22 furosemide 40 mg tablet 40 mg PO BID 09/19/21 07/03/22 metoprolol succinate 25 mg 25 mg PO DAILY 09/19/21 07/03/22 tablet,extended release 24 hr omega 0-frj-zzk-fish oil 1,200 mg 1,200 cap PO DAILY 09/19/21 07/03/22 (144 mg-216 mg) capsule (Fish Oil) pantoprazole 40 mg tablet,delayed 40 mg PO BID 09/19/21 07/03/22 release polysaccharide iron complex 150 mg 150 mg PO BID 09/19/21 07/03/22 iron capsule (iFerex 150) tamsulosin 0.4 mg capsule 0.4 mg PO HS 09/19/21 07/03/22 tramadol 50 mg tablet 50 mg PO Q6H 09/19/21 07/03/22 Tums 500 500 mg PO DAILY PRN Acid Reflux 07/03/22 07/03/22 allopurinol 100 mg tablet 100 mg PO DAILY 07/03/22 07/03/22 calcitriol 0.25 mcg capsule 0.25 mcg PO DAILY 07/03/22 07/03/22 insulin aspart U-100 100 unit/mL 1 sliding scale dose subcut 07/03/22 07/03/22 subcutaneous solution (Novolog USEASDIRECTD U-100 Insulin aspart) insulin glargine U-300 conc 300 26 unit subcut DAILY 07/03/22 07/03/22 unit/mL (1.5 mL) subcutaneous pen (Toujeo SoloStar U-300 Insulin) polyethylene glycol 3350 17 gram 17 g PO DAILY PRN Constipation 07/03/22 07/03/22 oral powder packet (Miralax) senna 374 mg tablet 374 mg PO DAILY PRN Constipation 07/03/22 07/03/22 Allergies Allergy/AdvReac Type Severity Reaction Status Date / Time oxytetracycline Allergy Other Verified 07/03/22 16:04 [From Terramycin] Penicillins Allergy Other Verified 07/03/22 16:04 Review of Systems Review of Systems: All systems reviewed & are unremarkable except as noted in HPI and below PMFSH Past Medical History Medical History CKD (chronic kidney disease), stage V Coronary artery disease Diabetes Hypertension Upper GI bleed Surgical History Surgical History History of esophagogastroduodenoscopy (EGD) Hx of CABG Social History Social History Smoking status: Never smoker Alcohol intake: never Substance use: never Lack of Transportation: YES Lack of Food: Never True Current Housing: I Have Housing Concerned About Future Housing: No Difficulty Paying Gas/Electric Bills: No Difficulty Paying for Meds: No Currently Unemployed: No Education: Bachelor's Degree Difficulty w/ Childcare or Family Care: No Spiritual care concerns: No Exam Narrative: APPEARANCE: Well appearing, no pain, no distress, well-nourished. HEAD: normocephalic, atraumatic. EYES: PERRLA/EOMI, conjunctivae clear. NOSE: Normal no drainage NECK: Supple. No adenopathy, no masses. RESPIRATORY: Airway patent, respirations nonlabored
[2022-07-03 12:32] LABS: Basophils Absolute Auto 0.1 K/mm3 (0.0-0.1); Basophils Percent Auto 0.6 % (0.2-1.2); Eosinophils Absolute Auto 0.2 K/mm3 (0-0.3); Eosinophils Percent Auto 2.3 % (0-4.4); Hematocrit 31.5 % (42.0-52.0); Hemoglobin 10.2 g/dL (14.0-18.0); Immature Granulocyte Absolute 0.04 K/mm3 (0.00-0.031); Immature Granulocyte Percent A 0.4 % (0-0.5); Lymphocytes Absolute Auto 1.45 K/mm3 (0.9-3.2); Lymphocytes Percent Auto 15.2 % (18.3-44.2); Mean Corpuscular HGB Conc 32.4 g/dl (32-36); Mean Corpuscular Hemoglobin 29.7 pg (26-34); Mean Corpuscular Volume 91.6 fl (80-100); Mean Platelet Volume 12.5 fl (7.4-10.4); Monocytes Absolute Auto 1.4 K/mm3 (0.1-0.6); Monocytes Percent Auto 14.6 % (2.6-8.5); Neutrophils Absolute Auto 6.4 K/mm3 (1.3-6.7); Neutrophils Percent Auto 66.9 % (45.5-73.1); Platelet Count Result 231 k/mm3 (150-375); Red Blood Count 3.44 M/mm3 (4.6-6.20); Red Cell Distribution Width 17.1 % (11.5-14.5); White Blood Count 9.6 K/mm3 (4.5-10.0)
[2022-07-03 12:52] LABS: Alanine Aminotransferase 126 U/L (6-50); Albumin Level 3.8 g/dL (3.5-5.1); Alkaline Phosphatase 161 U/L (38-126); Anion Gap 10 mmol/L (8-16); Aspartate Amino Transferase 214 U/L (17-59); Bilirubin,Total 0.8 mg/dL (0.2-1.3); Calcium 9.6 mg/dL (8.4-10.2); Carbon Dioxide 27 mmol/L (22-30); Chloride 102 mmol/L (98-107); Estimated CRCL calculation 13 ml/min; Estimated Glomerular Filt Rate 15; Glucose 126 mg/dL (65-110); Potassium 3.9 mmol/L (3.4-5.0); Sodium 139 mmol/L (137-145)
[2022-07-03 13:39] LABS: Influenza A QL RT-PCR Negative (Negative); Influenza B QL RT-PCR Negative (Negative); RSV RNA, RT-PCR Negative (Negative); SARS-CoV-2 RNA PCR Negative
[2022-07-03 13:39] LABS: Blood Urea Nitrogen 138 mg/dL (9-20)
[2022-07-03 14:26] LABS: Creatine Kinase 808 U/L (55-170)
[2022-07-03] MEDS: HYDROcodone/acetaminophen (*CRX) 5-325 MG TABLET 1 TAB PO (14:39)
--- NOTE | 2022-07-03 15:34 | ADMGEN ---
This patient, Patricio Torres, was admitted to Medical Room 240-01. Patient oriented to hospital policies and general routines including ID bracelet, bed and alarms, visiting hours, pain management, procedures, bathroom and other care routines, personal items, smoking policy, room service/diet, and visiting hours. Information on how to activate the Rapid Response Team has been discussed. Patient is encouraged to report perceived risks to care and to ask questions if they do not understand what they are told or what they should do.
[2022-07-03] MEDS: SODIUM CHLORIDE 0.9% IV 1,000 ML 250 ML IV CONT (16:58)
[2022-07-03 17:09] LABS: Glucose Point of Care 106 mg/dl (65-105)
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
[2022-07-03 21:01] LABS: Glucose Point of Care 142 mg/dl (65-105)
[2022-07-03 22:04] LABS: Acetaminophen < 10 ug/mL (10-30)
[2022-07-03 22:05] LABS: INR 1.5; Prothrombin Time 17.7 Seconds (11.1-14.7)
[2022-07-03 22:08] LABS: CRP 3.7 mg/dL (<1.0); Lipase 130 U/L (23-300)
[2022-07-03 22:10] LABS: Hemoglobin A1C 7.7 % (<5.7)
[2022-07-03 22:12] LABS: Anion Gap 7 mmol/L (8-16); Calcium 9.5 mg/dL (8.4-10.2); Carbon Dioxide 27 mmol/L (22-30); Chloride 103 mmol/L (98-107); Creatine Kinase 656 U/L (55-170); Estimated CRCL calculation 13 ml/min; Estimated Glomerular Filt Rate 15; Glucose 125 mg/dL (65-110); Potassium 3.5 mmol/L (3.4-5.0); Sodium 137 mmol/L (137-145)
[2022-07-03] MEDS: TAMSULOSIN HCL 0.4 MG CAPSULE PO (22:18)
[2022-07-03] MEDS: traMADol HCL (*CRX) 50 MG TABLET PO (22:19)
[2022-07-03 22:47] LABS: Hepatitis B Surface Antigen Negative (Negative)
[2022-07-03 22:52] LABS: Blood Urea Nitrogen 130 mg/dL (9-20)
[2022-07-03 22:53] LABS: HAV RESULT Negative (Negative); Hepatitis B Core IgM Result Negative (Negative)
[2022-07-03 23:05] LABS: Hepatitis C Virus Antibody Negative (Negative)
[2022-07-04] VITALS (12 sets, daily range): BP systolic 114–140; BP diastolic 55–80; PULSE 53–81; RESP 20–21; TEMP 36.3–36.6; O2SAT 98–100
[2022-07-04 05:28] LABS: Hematocrit 30.6 % (42.0-52.0); Hemoglobin 9.7 g/dL (14.0-18.0); Mean Corpuscular HGB Conc 31.7 g/dl (32-36); Mean Corpuscular Hemoglobin 29.3 pg (26-34); Mean Corpuscular Volume 92.4 fl (80-100); Mean Platelet Volume 12.1 fl (7.4-10.4); Platelet Count Result 209 k/mm3 (150-375); Red Blood Count 3.31 M/mm3 (4.6-6.20); Red Cell Distribution Width 17.2 % (11.5-14.5)
[2022-07-04] MEDS: traMADol HCL (*CRX) 50 MG TABLET PO ×4 (05:48→23:40)
[2022-07-04 05:53] LABS: Alanine Aminotransferase 110 U/L (6-50); Albumin Level 3.5 g/dL (3.5-5.1); Alkaline Phosphatase 129 U/L (38-126); Anion Gap 8 mmol/L (8-16); Aspartate Amino Transferase 160 U/L (17-59); Bilirubin,Total 0.7 mg/dL (0.2-1.3); Blood Urea Nitrogen > 120 mg/dL (9-20); Calcium 9.2 mg/dL (8.4-10.2); Carbon Dioxide 26 mmol/L (22-30); Chloride 105 mmol/L (98-107); Estimated CRCL calculation 14 ml/min; Estimated Glomerular Filt Rate 15; Glucose 53 mg/dL (65-110); Potassium 2.9 mmol/L (3.4-5.0); Sodium 139 mmol/L (137-145)
--- NOTE | 2022-07-04 06:08 | PC.NURSE ---
0550 LAB REPORTED CRITICAL GLUCOSE OF 53. PATIENT REFUSES GLUCOSE GEL, TOOK 4 OZ OF APPLE JUICE.
[2022-07-04 06:47] LABS: Glucose Point of Care 60 mg/dl (65-105)
[2022-07-04 06:47] LABS: Glucose Point of Care 97 mg/dl (65-105)
[2022-07-04 07:34] LABS: Iron 48 ug/dL (49-181)
[2022-07-04 07:36] LABS: Lactate Dehydrogenase 609 U/L (120-246)
[2022-07-04 07:44] LABS: Percent Iron Saturation 17 % (20-50)
[2022-07-04 07:45] LABS: NT Pro B Type Natriuretic Pept > 30000 pg/mL (19.9-100); Transferrin 177 mg/dL (206-381)
[2022-07-04 08:25] LABS: Glucose Point of Care 102 mg/dl (65-105)
[2022-07-04 08:43] LABS: Folic Acid > 20.0 ng/mL (2.76->20)
[2022-07-04 09:17] LABS: Hepatitis B Surface Anti Res Negative; Hepatitis C Virus Antibody Negative (Negative)
--- NOTE | 2022-07-04 09:30 | P.PNIM_ITS ---
Progress Note: A&P Assessment and Plan (1) Acute on chronic renal failure: Code(s): N17.9 - Acute kidney failure, unspecified; N18.9 - Chronic kidney disease, unspecified Status: Acute Assessment and Plan: * Chronic renal failure Stage 5 * BUN/Cr upon arrival was 138/4.00 * Baseline creatinine does appear to be 3.00-4.00 * Urine labs sodium: 38, Urea 894, Creatinine 63.6 * Fena score 1.6 intrinsic * Renal ultrasound Normal kidney without hydronephrosis * Trend labs * Nephrology consulted thank you for your help * Hep B, C, and A labs for possible dialysis ordered * Trend urine output * Daily weights (2) Transaminitis: Code(s): R74.01 - Elevation of levels of liver transaminase levels Status: Acute Assessment and Plan: * AST/ALT 169/102 alk phos 165 on 07/02/22 * AST/ALT 214/126 alk phos 161 on admission * Currently trending down AST/ALT 160/110 alk phos 129 * Hep panel negative * RUQ ultrasound Nonspecific small amount of perihepatic ascites. Otherwise normal right upper quadrant ultrasound. * Continue to trend labs * CT of the abdomen on 07/02/22 did show minimal ascites along the liver and gallbladder * Stable at this time (3) Elevated creatine kinase: Code(s): R74.8 - Abnormal levels of other serum enzymes Status: Acute Assessment and Plan: * CK upon admission is 801 * Currently 460 * IV fluids given * Need to monitor fluids carefully with renal failure * Trending down * Seems stable * Continue to trend (4) Heart failure with reduced ejection fraction: Code(s): I50.20 - Unspecified systolic (congestive) heart failure Status: Acute Assessment and Plan: * Chronic diastolic heart failure * Echo ordered * Trend urine output * Most likely secondary to renal failure * BNP >26327 * Trend daily weights * Know type and chronicity will be evaluated post echo (5) Generalized weakness: Code(s): R53.1 - Weakness Status: Acute Assessment and Plan: * Notable frequent falls, lightheadedness recently * CT of the head from 07/02/22 showed no acute findings * Repeat CT of the head no acute intracranial process, few small old infarcts, age related changes * MRI of the brain No acute intracranial process, 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, right occipital and bilateral parietal lobes * orthostatic blood pressures stable with no hypo/hypertension noted * Could be related to renal failure, fluid volume shifts, hypotension, stroke (6) Diplopia: Code(s): H53.2 - Diplopia Status: Acute Assessment and Plan: * Complaints of visual changes * Head CT from 07/02/22 negative for any acute findings * MRI of the Brain no new stroke noted * Repeat head CT no new stroke or intracranial process noted * Continue to trend symptoms (7) Insulin dependent type 2 diabetes mellitus: Code(s): E11.9 - Type 2 diabetes mellitus without complications; Z79.4 - half-way (current) use of insulin Status: Acute Assessment and Plan: * Glucose appears to be a bit unstable * Labs report glucose of 53, POC of 97 * Hold home insulins * Trend glucose * A1c 7.7 * Diabetic diet * Accu-Cheks AC/HS * adjust therapy as indicated * Hypoglyce
--- NOTE | 2022-07-04 09:30 | PM.IMPN ---
Progress Note: A&P Assessment and Plan (1) Acute on chronic renal failure: Code(s): N17.9 - Acute kidney failure, unspecified; N18.9 - Chronic kidney disease, unspecified Status: Acute Assessment and Plan: Chronic renal failure Stage 5 BUN/Cr upon arrival was 138/4.00 Baseline creatinine does appear to be 3.00-4.00 Urine labs sodium: 38, Urea 894, Creatinine 63.6 Fena score 1.6 intrinsic Renal ultrasound Normal kidney without hydronephrosis Trend labs Nephrology consulted thank you for your help Hep B, C, and A labs for possible dialysis ordered Trend urine output Daily weights (2) Transaminitis: Code(s): R74.01 - Elevation of levels of liver transaminase levels Status: Acute Assessment and Plan: AST/ALT 169/102 alk phos 165 on 07/02/22 AST/ALT 214/126 alk phos 161 on admission Currently trending down AST/ALT 160/110 alk phos 129 Hep panel negative RUQ ultrasound Nonspecific small amount of perihepatic ascites. Otherwise normal right upper quadrant ultrasound. Continue to trend labs CT of the abdomen on 07/02/22 did show minimal ascites along the liver and gallbladder Stable at this time (3) Elevated creatine kinase: Code(s): R74.8 - Abnormal levels of other serum enzymes Status: Acute Assessment and Plan: CK upon admission is 801 Currently 460 IV fluids given Need to monitor fluids carefully with renal failure Trending down Seems stable Continue to trend (4) Heart failure with reduced ejection fraction: Code(s): I50.20 - Unspecified systolic (congestive) heart failure Status: Acute Assessment and Plan: Chronic diastolic heart failure Echo ordered Trend urine output Most likely secondary to renal failure BNP >11832 Trend daily weights Know type and chronicity will be evaluated post echo (5) Generalized weakness: Code(s): R53.1 - Weakness Status: Acute Assessment and Plan: Notable frequent falls, lightheadedness recently CT of the head from 07/02/22 showed no acute findings Repeat CT of the head no acute intracranial process, few small old infarcts, age related changes MRI of the brain No acute intracranial process, 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, right occipital and bilateral parietal lobes orthostatic blood pressures stable with no hypo/hypertension noted Could be related to renal failure, fluid volume shifts, hypotension, stroke (6) Diplopia: Code(s): H53.2 - Diplopia Status: Acute Assessment and Plan: Complaints of visual changes Head CT from 07/02/22 negative for any acute findings MRI of the Brain no new stroke noted Repeat head CT no new stroke or intracranial process noted Continue to trend symptoms (7) Insulin dependent type 2 diabetes mellitus: Code(s): E11.9 - Type 2 diabetes mellitus without complications; 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 He currently stated that he is feeling ok. He also stated that he is just board. Orthostatic blood pressures obtained and were stable with no notable hypotension or hypertension. Dr. Eric nielsen
--- NOTE | 2022-07-04 09:51 | PM.CNNEP ---
Assessment and Plan Assessment and plan (1) Chronic kidney disease, stage 5: Code(s): N18.5 - Chronic kidney disease, stage 5 Status: Acute Assessment and Plan: the patient has chronic kidney disease stage 5. He has itching which seems to be is only symptom. He does have dizziness and ataxia which I suppose could be part of the uremic syndrome, however need to rule out other causes as EDMUND Wood is doing. His creatinine is stable but his BUN is higher. He looks euvolemic on physical exam, but may be a little dry. Will get a chest x-ray to make sure he does not have any fluid there. If not consider some diuretics. The higher BUN could also be a sign of a GI bleed so will check stool guaiacs. The patient is not taking steroids or tetracycline. Will check urine electrolytes, renal ultrasound, fractional excretion of urea, Stool guaiacs, and CPK. EDMUND Wood and discussed the case at length. (2) Dizziness: Code(s): R42 - Dizziness and giddiness Status: Acute Assessment and Plan: the patient has ataxia with walking. He is going to get a MRI of the brain. If he has posterior cerebral circulation infarcts then possibly this is AFib? Will also check an echocardiogram. (3) Insulin dependent type 2 diabetes mellitus: Code(s): E11.9 - Type 2 diabetes mellitus without complications; Z79.4 - skilled nursing (current) use of insulin Status: Acute Assessment and Plan: Patient has diabetes. He is on Accu-Cheks and sliding scale insulin per hospitalist. (4) Hypertension: Code(s): I10 - Essential (primary) hypertension Status: Acute Assessment and Plan: His blood pressure is under very good control History of Present Illness Reason for Consult Consult date: 07/04/22 Chief Complaint Chief complaint: Chronic Kidney Disease/Hyperuricemia History of Present Illness Narrative: Patricio is a very pleasant 77-year-old gentleman who has multiple medical problems including hypertension, coronary disease, congestive heart failure with an EF of 45-50%, history of TIA, history of upper GI bleed, diabetes, chronic kidney disease, andchronic pain syndrome. The patient sees Dr. Jeffry Cartwright in the office. He has been seen fairly frequently because of the extent of his kidney disease. His creatinine has been hanging around 4 and his BUN has been hanging around 100 for quite a while. They have had brief discussions about dialysis in the past been trying to extend the time without having to start dialysis. It is unclear how much formal education he or his family have had. The patient does have some itching. He has a good appetite. He has no morning nausea. His energy level is not the greatest but not worsened lately. He does not have a rash. No bloody urine, foamy urine, kidney stones, or bladder infections. He does not take Advil Aleve ibuprofen Motrin according to his med list. The patient came in because he was having weak spells with dizziness. They are evaluating him for stroke. CT was negative an MRI is going to be done. They suspected orthostatic hypotension, however the recent test by EDMUND Wood shows no drop in his systolic blood pressure from lying to sitting to standing. Review of Systems Constitutional: Constitutional: Reports no additional constitutional complaints Eyes: Eyes: Reports no additional eye complaints ENT: Reports system reviewed and no additional complaints, except as documented Cardiovascular: Cardiovascular: Reports no additional cardiovascular complaints Respiratory: Respiratory: Reports no additional respiratory complaints Gastrointestinal: Gastrointestinal: Reports no additional gastrointestinal complaints Genitourinary: Genitourinary: Reports no additional male genitourinary complaints Musculoskeletal: Musculoskeletal: Reports no additional musculoskeletal complaints Integumentary/Breasts: Skin/Breast: Reports syste
[2022-07-04 10:15] LABS: Creatine Kinase 460 U/L (55-170)
[2022-07-04] MEDS: POLYSACCHARIDE IRON COMPLEX 150 MG CAPSULE PO ×2 (10:21→17:01)
[2022-07-04] MEDS: FENOFIBRATE NANOCRYSTALLIZED 145 MG TABLET PO (10:21)
[2022-07-04] MEDS: calcitrioL 0.25 MCG CAPSULE PO (10:21)
[2022-07-04] MEDS: METOPROLOL SUCCINATE EXT REL 25 MG TABCR PO (10:22)
[2022-07-04] MEDS: OMEGA 3 POLYUNSAT FATTY ACIDS 1 GM CAP PO (10:23)
[2022-07-04] MEDS: PANTOPRAZOLE 40 MG TABLET PO ×2 (10:23→17:01)
--- NOTE | 2022-07-04 10:23 | ECG_ITS ---
Measurements Intervals [place] Rate: 65 P: 27 FL: 208 QRS: -54 QRSD: 149 T: 90 QT: 479 QTc: 500 Interpretive Statements SINUS RHYTHM VENTRICULAR PREMATURE COMPLEX LEFT AXIS DEVIATION BORDERLINE AV CONDUCTION DELAY POSSIBLE LEFT ATRIAL ENLARGEMENT LEFT BUNDLE BRANCH BLOCK ABNORMAL ECG COMPARED TO ECG 07/02/2022 19:23:50 NO SIGNIFICANT CHANGES Electronically Signed On 07-04-2022 12:34:15 RESPIRATORY THERAPY DIRECTOR by Wilder Wesley D.O.
[2022-07-04] MEDS: POTASSIUM CHLORIDE INJ 40 MEQ in SODIUM CHLORIDE 0.9% IV 500 ML 130 MEQ IVPB (10:25)
[2022-07-04 10:32] LABS: Hepatitis B Surface Antigen Negative (Negative)
[2022-07-04 10:39] LABS: HAV RESULT Negative (Negative); Hepatitis B Core IgM Result Negative (Negative)
[2022-07-04 12:17] LABS: Glucose Point of Care 130 mg/dl (65-105)
[2022-07-04 12:46] LABS: Appearance Urine Clear (Clear); Bacteria Urine None Seen /hpf; Bilirubin Urine Negative (Negative); Blood Urine Trace (Negative); Color Urine Yellow (Yellow); Glucose Urine UA Negative (Negative); Ketones Urine Negative (Negative); Leukocyte Esterase Ur Negative LEU/UL (NEGATIVE); Nitrate Urine Negative (Negative); Non Pathogenic Casts 0-2; Protein Urine 2+ mg/dL (Negative); RBC Urine 0-2 /hpf (0-2); Specific Grav Ur 1.015 (1.001-1.035); Squamous Epithelial Cell Urine None seen /hpf (Few); Urobilinogen Urine 0.2 mg/dL (<2.0); WBC Urine 0-5 /hpf (0-3); pH Urine 5.5 (5.0-9.0)
[2022-07-04 12:50] LABS: Add Urine Microscopic? YES
[2022-07-04 12:52] LABS: Total Protein Urine Random 59 mg/dL
[2022-07-04 13:16] LABS: Creatinine Urine 63.3 mg/dL; Ur Ttl Prot Creatinine Ratio 0.93 mg/mg (0-0.20); Urea Random Urine 863 MG/DL
[2022-07-04 17:14] LABS: Glucose Point of Care 145 mg/dl (65-105)
[2022-07-04] MEDS: TAMSULOSIN HCL 0.4 MG CAPSULE PO (20:23)
[2022-07-04 20:54] LABS: Glucose Point of Care 206 mg/dl (65-105)
[2022-07-04 21:05] LABS: Creatinine Urine 63.6 mg/dL; Urea Random Urine 894 MG/DL
[2022-07-04 21:10] LABS: Sodium Urine Random 38 meq/L
[2022-07-05] VITALS (16 sets, daily range): BP systolic 123–145; BP diastolic 60–95; PULSE 64–81; RESP 18–20; TEMP 36.1–36.3; O2SAT 95–99
[2022-07-05 04:31] LABS: IFOB Positive Control Positive; Immunochemical Fecal Occult Bl Negative (N)
[2022-07-05] MEDS: traMADol HCL (*CRX) 50 MG TABLET PO ×4 (05:54→23:57)
[2022-07-05 08:14] LABS: Albumin Level 3.7 g/dL (3.5-5.1); Anion Gap 9 mmol/L (8-16); Blood Urea Nitrogen 115 mg/dL (9-20); Calcium 9.3 mg/dL (8.4-10.2); Carbon Dioxide 27 mmol/L (22-30); Chloride 110 mmol/L (98-107); Creatine Kinase 377 U/L (55-170); Estimated CRCL calculation 14 ml/min; Estimated Glomerular Filt Rate 15; Glucose 139 mg/dL (65-110); Phosphorus 4.2 mg/dL (2.5-4.5); Potassium 3.7 mmol/L (3.4-5.0); Sodium 146 mmol/L (137-145)
[2022-07-05 08:16] LABS: Glucose Point of Care 134 mg/dl (65-105)
[2022-07-05] MEDS: METOPROLOL SUCCINATE EXT REL 25 MG TABCR PO (08:23)
[2022-07-05] MEDS: PANTOPRAZOLE 40 MG TABLET PO ×2 (08:24→17:26)
[2022-07-05] MEDS: OMEGA 3 POLYUNSAT FATTY ACIDS 1 GM CAP PO (08:25)
[2022-07-05] MEDS: calcitrioL 0.25 MCG CAPSULE PO (08:25)
[2022-07-05] MEDS: FENOFIBRATE NANOCRYSTALLIZED 145 MG TABLET PO (08:25)
[2022-07-05] MEDS: POLYSACCHARIDE IRON COMPLEX 150 MG CAPSULE PO ×2 (08:26→17:25)
--- NOTE | 2022-07-05 10:47 | PM.PNNEP ---
Progress Note: A&P Assessment and Plan (1) Chronic kidney disease, stage 5: Code(s): N18.5 - Chronic kidney disease, stage 5 Status: Acute Assessment and Plan: the patient has chronic kidney disease stage 5. He has itching which seems to be is only symptom. He does have dizziness and ataxia which I suppose could be part of the uremic syndrome, however need to rule out other causes as EDMUND Wood is doing. His creatinine is about the same. Check again in the morning. (2) Dizziness: Code(s): R42 - Dizziness and giddiness Status: Acute Assessment and Plan: the patient has ataxia with walking. He is going to get a MRI of the brain. If he has posterior cerebral circulation infarcts then possibly this is AFib? Will also check an echocardiogram. 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 He is on Accu-Cheks and sliding scale insulin per hospitalist. (4) Hypertension: Code(s): I10 - Essential (primary) hypertension Status: Acute Assessment and Plan: His blood pressure is under very good control Subjective Date/time seen: 07/05/22 10:47 Interval history: Patricio is feeling okay today. Still has frequent urination. Review of Systems Cardiovascular: Cardiovascular: Reports no additional cardiovascular complaints Respiratory: Respiratory: Reports no additional respiratory complaints Gastrointestinal: Gastrointestinal: Reports no additional gastrointestinal complaints Genitourinary: Genitourinary: Reports no additional male genitourinary complaints Exam Narrative: WDWN in NAD skin no rash head ncat lungs clear cor reg no rub or gallop abd BS+ nontender and soft ext no edema. Objective Data Vital Signs Vital Signs: Vital Signs - 24 hr 07/04/22 10:22 07/04/22 14:00 07/04/22 12:00 Temperature 97.4 F L Pulse Rate 68 64 65 Respiratory Rate 20 Blood Pressure 140/65 Pulse Oximetry 98 Oxygen Delivery 07/04/22 16:00 07/04/22 20:00 07/04/22 20:00 Temperature Pulse Rate 59 L 59 L Respiratory Rate Blood Pressure Pulse Oximetry Oxygen Delivery Room Air 07/04/22 22:00 07/05/22 00:00 07/05/22 04:00 Temperature 97.4 F L Pulse Rate 59 L 64 66 Respiratory Rate 21 H Blood Pressure 131/71 Pulse Oximetry 100 Oxygen Delivery 07/05/22 06:00 07/05/22 06:05 07/05/22 06:51 Temperature 97.1 F L 97.2 F L 97.0 F L Pulse Rate 69 69 73 Respiratory Rate 20 20 20 Blood Pressure 145/95 H 143/81 H 140/69 Pulse Oximetry 98 98 98 Oxygen Delivery 07/05/22 06:52 07/05/22 08:23 Temperature 97.1 F L Pulse Rate 69 69 Respiratory Rate 20 Blood Pressure 145/95 H Pulse Oximetry 98 Oxygen Delivery Intake/Output Intake/Output: Intake & Output 07/02/22 07/03/22 07/04/22 07/06/22 23:59 23:59 23:59 00:59 Intake Total 1320 1480 740 Output Total 450 450 Balance 870 1030 740 Meds/Results Medications: Active Medications Generic Name Dose Route Start Last Admin Trade Name Aaronq PRN Reason Stop Dose Admin Calcitriol 0.25 mcg 07/04/22 09:00 07/05/22 08:25 Calcitriol 0.25 Mcg Capsule PO 0.25 mcg DAILY ROSS Administration Calcium Carbonate 500 mg 07/03/22 21:37 Calcium Carbonate (Tums) 500 Mg (200 Mg Elemental) PO DAILY PRN Acid Reflux Dextrose 12.5 gm 07/03/22 21:28 Dextrose 50% 25 Gm/50 Ml Syringe IV PUSH PRN PRN Hypoglycemia Protocol Fenofibrate 145 mg 07/04/22 09:00 07/05/22 08:25 Fenofibrate Nanocrystallized 145 Mg Tablet PO 145 mg DAILY ROSS Administration Fish Oil 1 gm 07/04/22 09:00 07/05/22 08:25 [place] 3 Polyunsat Fatty Acids 1 Gm Cap PO 1 gm DAILY ROSS Administration Glucagon 1 mg 07/03/22 21:28 Glucagon For
--- NOTE | 2022-07-05 11:00 | PM.IMPN ---
Progress Note: A&P Assessment and Plan (1) Acute on chronic renal failure: Code(s): N17.9 - Acute kidney failure, unspecified; N18.9 - Chronic kidney disease, unspecified Status: Acute Assessment and Plan: Chronic renal failure Stage 5 BUN/Cr upon arrival was 138/4.00, currently 115/3.80 Baseline creatinine does appear to be 3.00-4.00 Urine labs sodium: 38, Urea 894, Creatinine 63.6 Fena score 1.6 intrinsic Renal ultrasound Normal kidney without hydronephrosis Trend labs Nephrology consulted thank you for your help Hep B, C, and A labs for possible dialysis ordered Trend urine output Daily weights (2) Transaminitis: Code(s): R74.01 - Elevation of levels of liver transaminase levels Status: Acute Assessment and Plan: AST/ALT 169/102 alk phos 165 on 07/02/22 AST/ALT 214/126 alk phos 161 on admission Currently trending down AST/ALT 160/110 alk phos 129 Hep panel negative RUQ ultrasound Nonspecific small amount of perihepatic ascites. Otherwise normal right upper quadrant ultrasound. Continue to trend labs CT of the abdomen on 07/02/22 did show minimal ascites along the liver and gallbladder Stable at this time (3) Elevated creatine kinase: Code(s): R74.8 - Abnormal levels of other serum enzymes Status: Acute Assessment and Plan: CK upon admission is 801 Currently 460 IV fluids given Need to monitor fluids carefully with renal failure Trending down Seems stable Continue to trend (4) Heart failure with reduced ejection fraction: Code(s): I50.20 - Unspecified systolic (congestive) heart failure Status: Acute Assessment and Plan: Chronic diastolic heart failure Echo ordered Trend urine output Most likely secondary to renal failure BNP >88765 Trend daily weights Know type and chronicity will be evaluated post echo (5) Generalized weakness: Code(s): R53.1 - Weakness Status: Acute Assessment and Plan: Notable frequent falls, lightheadedness recently CT of the head from 07/02/22 showed no acute findings Repeat CT of the head no acute intracranial process, few small old infarcts, age related changes MRI of the brain No acute intracranial process, 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, right occipital and bilateral parietal lobes orthostatic blood pressures stable with no hypo/hypertension noted Could be related to renal failure, fluid volume shifts, hypotension, stroke (6) Diplopia: Code(s): H53.2 - Diplopia Status: Acute Assessment and Plan: Complaints of visual changes Head CT from 07/02/22 negative for any acute findings MRI of the Brain no new stroke noted Repeat head CT no new stroke or intracranial process noted Continue to trend symptoms Seems to be resolved (7) Insulin dependent type 2 diabetes mellitus: Code(s): E11.9 - Type 2 diabetes mellitus without complications; Z79.4 - halfway (current) use of insulin Status: Acute Assessment and Plan: Glucose appears to be a bit unstable Labs report glucose of 139, POC of 134 restart Lantus at 15 units daily Trend glucose A1c 7.7 Diabetic diet Accu-Cheks AC/HS adjust therapy as indicated Hypoglycemia protocol (8) Chronic pain syndrome: Code(s): G89.4 - Chronic pain syndrome Status: Acute Assessment and Plan: On tramadol at home Continue for now Trend pain score adjust therapy as indicated (9) BPH (benign prostatic hyperplasia): Code(s): N40.0 - Benign prostatic hyperplasia without lower urinary tract symptoms Status: Acute Assessment and Plan: CT of the abdomen from 07/02/22 showed prostatomegaly Continue home tamsulosin Bladder scan PRN added finasteride trend urine output
--- NOTE | 2022-07-05 11:00 | P.PNIM_ITS ---
Progress Note: A&P Assessment and Plan (1) Acute on chronic renal failure: Code(s): N17.9 - Acute kidney failure, unspecified; N18.9 - Chronic kidney disease, unspecified Status: Acute Assessment and Plan: * Chronic renal failure Stage 5 * BUN/Cr upon arrival was 138/4.00, currently 115/3.80 * Baseline creatinine does appear to be 3.00-4.00 * Urine labs sodium: 38, Urea 894, Creatinine 63.6 * Fena score 1.6 intrinsic * Renal ultrasound Normal kidney without hydronephrosis * Trend labs * Nephrology consulted thank you for your help * Hep B, C, and A labs for possible dialysis ordered * Trend urine output * Daily weights (2) Transaminitis: Code(s): R74.01 - Elevation of levels of liver transaminase levels Status: Acute Assessment and Plan: * AST/ALT 169/102 alk phos 165 on 07/02/22 * AST/ALT 214/126 alk phos 161 on admission * Currently trending down AST/ALT 160/110 alk phos 129 * Hep panel negative * RUQ ultrasound Nonspecific small amount of perihepatic ascites. Otherwise normal right upper quadrant ultrasound. * Continue to trend labs * CT of the abdomen on 07/02/22 did show minimal ascites along the liver and gallbladder * Stable at this time (3) Elevated creatine kinase: Code(s): R74.8 - Abnormal levels of other serum enzymes Status: Acute Assessment and Plan: * CK upon admission is 801 * Currently 460 * IV fluids given * Need to monitor fluids carefully with renal failure * Trending down * Seems stable * Continue to trend (4) Heart failure with reduced ejection fraction: Code(s): I50.20 - Unspecified systolic (congestive) heart failure Status: Acute Assessment and Plan: * Chronic diastolic heart failure * Echo ordered * Trend urine output * Most likely secondary to renal failure * BNP >37469 * Trend daily weights * Know type and chronicity will be evaluated post echo (5) Generalized weakness: Code(s): R53.1 - Weakness Status: Acute Assessment and Plan: * Notable frequent falls, lightheadedness recently * CT of the head from 07/02/22 showed no acute findings * Repeat CT of the head no acute intracranial process, few small old infarcts, age related changes * MRI of the brain No acute intracranial process, 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, right occipital and bilateral parietal lobes * orthostatic blood pressures stable with no hypo/hypertension noted * Could be related to renal failure, fluid volume shifts, hypotension, stroke (6) Diplopia: Code(s): H53.2 - Diplopia Status: Acute Assessment and Plan: * Complaints of visual changes * Head CT from 07/02/22 negative for any acute findings * MRI of the Brain no new stroke noted * Repeat head CT no new stroke or intracranial process noted * Continue to trend symptoms * Seems to be resolved (7) Insulin dependent type 2 diabetes mellitus: Code(s): E11.9 - Type 2 diabetes mellitus without complications; 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
[2022-07-05 12:28] LABS: Glucose Point of Care 264 mg/dl (65-105)
[2022-07-05] MEDS: polyethylene glycoL 3350 17 GM POWD.PACK PO (12:30)
[2022-07-05] MEDS: FINASTERIDE 5 MG TABLET PO (13:08)
[2022-07-05 17:06] LABS: Glucose Point of Care 224 mg/dl (65-105)
[2022-07-05] MEDS: INSULIN ASPART (*BKC) 100 UNITS/ML SUB-Q (17:26)
[2022-07-05 20:05] LABS: Glucose Point of Care 226 mg/dl (65-105)
[2022-07-05] MEDS: LORazepam INJ (*CRX) 2 MG/ML VIAL 0.5 MG IV PUSH (20:33)
[2022-07-05] MEDS: TAMSULOSIN HCL 0.4 MG CAPSULE PO (20:33)
[2022-07-06] VITALS (14 sets, daily range): BP systolic 118–137; BP diastolic 71–88; PULSE 57–81; RESP 19–22; TEMP 36–36.5; O2SAT 84–100
--- NOTE | 2022-07-06 | ECHO_ITS ---
Patient Info Name: Patricio Torres Age: 77 years : 1945 Gender: Male Ht: 67 in Wt: 155 lbs BSA: 1.83 m2 HR: 75 bpm BP: 123 / 60 mmHg Heart Rhythm: Sinus Rhythm, Left Bundle Branch Block Technical Quality: Fair Exam Date: 07/06/2022 10:21 AM Exam Location: [facility] Patient Status: Inpatient Admit Date: 07/05/2022 Staff Ordering Physician: Vasquez Wood Building Official: Crystal Elliott RDCS Attending Provider: Tiera Bacon PA-C Referring Physician: Israel LEYVA; Exam Type: CA echo dop color flow w con Study Info Indications - FREQUENT FALLS I50.9 - Heart failure, unspecified Complete two-dimensional, color flow and Doppler transthoracic echocardiogram is performed with contrast to opacify the left ventricle and to improve the deliniation of the left ventricle endocardial borders. Contrast/Agitated Saline Contrast/Ag. Saline: Definity Amount: 4.00 ml Administered By: Crystal Elliott RDCS Existing IV Access: Yes IV Access Condition: patent with no signs of infiltration Summary 1. Left ventricular chamber dimension is normal. 2. Left ventricular systolic function is severely reduced, estimated at <15%. 3. Left ventricular septal wall motion is abnormal with septal motion related to bundle branch block. 4. The left ventricular diastolic function is grade II diastolic dysfunction. 5. Right ventricular chamber dimension is normal. 6. Right ventricular systolic function is reduced. 7. Left atrial chamber dimension is moderately enlarged. 8. Right atrial chamber dimension is moderately enlarged. 9. There is mild mitral valve regurgitation. 10. There is mild to moderate tricuspid valve regurgitation. 11. Pulmonary hypertension, estimated pulmonary arterial systolic pressure is 59 mmHg. 12. There is mild-moderate aortic atherosclerosis. 13. Dilated inferior vena cava with <50% collapse upon inspiration consistent with elevated right atrial pressure, 15 mmHg. Left Ventricle Left ventricular chamber dimension is normal. Left ventricular systolic function is severely reduced, estimated at <15%. There is no increased left ventricular wall thickness. Left ventricular septal wall motion is abnormal with septal motion related to bundle branch block. The left ventricular diastolic function is grade II diastolic dysfunction. Global longitudinal strain is abnormal at -7 %. Right Ventricle Right ventricular chamber dimension is normal. Right ventricular systolic function is reduced. Left Atria Left atrial chamber dimension is moderately enlarged. Right Atria Right atrial chamber dimension is moderately enlarged. Atrial Septum Intact interatrial septum visualized by color flow imaging. Aortic Valve The aortic valve is trileaflet. There is mild aortic valve sclerosis. There is no aortic valve stenosis. There is no aortic valve regurgitation. Pulmonic Valve The pulmonic valve is not well visualized. Mitral Valve The mitral valve has normal leaflets. There is no mitral valve stenosis. There is mild mitral valve regurgitation. Tricuspid Valve There is mild to moderate tricuspid valve regurgitation. Pulmonary hypertension, estimated pulmonary arterial systolic pressure is 59 mmHg. Pericardium/Pleural There is no pericardial effusion. Inferior Vena Cava Dilated inferior vena cava with <50% collapse upon inspiration consistent with elevated right atrial pressure, 15 m
[2022-07-06] MEDS: OLANZapine 5 MG, WATER, STERILE FOR INJECTION 2.1 ML IM (01:42)
[2022-07-06 06:00] LABS: Basophils Absolute Auto 0.1 K/mm3 (0.0-0.1); Basophils Percent Auto 1.1 % (0.2-1.2); Eosinophils Absolute Auto 0.2 K/mm3 (0-0.3); Eosinophils Percent Auto 2.4 % (0-4.4); Hematocrit 32.6 % (42.0-52.0); Hemoglobin 10.2 g/dL (14.0-18.0); Immature Granulocyte Absolute 0.02 K/mm3 (0.00-0.031); Immature Granulocyte Percent A 0.3 % (0-0.5); Lymphocytes Absolute Auto 1.28 K/mm3 (0.9-3.2); Mean Corpuscular HGB Conc 31.3 g/dl (32-36); Mean Corpuscular Hemoglobin 29.3 pg (26-34); Mean Corpuscular Volume 93.7 fl (80-100); Mean Platelet Volume 12.2 fl (7.4-10.4); Neutrophils Percent Auto 66.2 % (45.5-73.1); Platelet Count Result 216 k/mm3 (150-375); Red Blood Count 3.48 M/mm3 (4.6-6.20); White Blood Count 7.5 K/mm3 (4.5-10.0)
[2022-07-06 06:05] LABS: Alanine Aminotransferase 112 U/L (6-50); Albumin Level 3.6 g/dL (3.5-5.1); Alkaline Phosphatase 89 U/L (38-126); Anion Gap 11 mmol/L (8-16); Aspartate Amino Transferase 148 U/L (17-59); Blood Urea Nitrogen 115 mg/dL (9-20); Calcium 8.7 mg/dL (8.4-10.2); Carbon Dioxide 22 mmol/L (22-30); Chloride 108 mmol/L (98-107); Estimated CRCL calculation 15 ml/min; Estimated Glomerular Filt Rate 17; Glucose 107 mg/dL (65-110); Magnesium 2.2 mg/dL (1.6-2.3); Potassium 3.8 mmol/L (3.4-5.0); Sodium 141 mmol/L (137-145)
[2022-07-06] MEDS: FINASTERIDE 5 MG TABLET PO (08:16)
[2022-07-06] MEDS: FENOFIBRATE NANOCRYSTALLIZED 145 MG TABLET PO (08:16)
[2022-07-06] MEDS: calcitrioL 0.25 MCG CAPSULE PO (08:16)
[2022-07-06] MEDS: POLYSACCHARIDE IRON COMPLEX 150 MG CAPSULE PO ×2 (08:16→17:07)
[2022-07-06] MEDS: OMEGA 3 POLYUNSAT FATTY ACIDS 1 GM CAP PO (08:16)
[2022-07-06] MEDS: PANTOPRAZOLE 40 MG TABLET PO ×2 (08:16→17:07)
[2022-07-06] MEDS: METOPROLOL SUCCINATE EXT REL 25 MG TABCR PO (08:17)
[2022-07-06 08:26] LABS: Glucose Point of Care 94 mg/dl (65-105)
--- NOTE | 2022-07-06 09:56 | PM.PNNEP ---
Progress Note: A&P Assessment and Plan (1) Chronic kidney disease, stage 5: Code(s): N18.5 - Chronic kidney disease, stage 5 Status: Acute Assessment and Plan: the patient has chronic kidney disease stage 5. He has itching which seems to be is only symptom. He does have dizziness and ataxia which I suppose could be part of the uremic syndrome, however need to rule out other causes as EDMUND Wood is doing. His creatinine is about the same. urinalysis is bland urine electrolytes and FEurea are not pre renal CK is minimally high, not enough to affect the kidneys. It is decreasing. His lab seemed to be getting back to the baseline. I will talk with family and Dr. Ordaz about whether or not they want to start dialysis because of the minimal symptoms it might be better just to put a fistula in or PD catheter in and start dialysis as an outpatient when the access is ready (2) Dizziness: Code(s): R42 - Dizziness and giddiness Status: Acute Assessment and Plan: the patient has ataxia with walking. 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 He is on Accu-Cheks and sliding scale insulin per hospitalist. (4) Hypertension: Code(s): I10 - Essential (primary) hypertension Status: Acute Assessment and Plan: His blood pressure is under very good control Subjective Date/time seen: 07/06/22 09:56 Interval history: Patricio is feeling okay today. Still has frequent urination. No chest pain or shortness of breath Exam Narrative: WDWN in NAD skin no rash head ncat lungs clear bilaterally cor reg no rub or gallop abd BS+ nontender and soft ext no edema or cyanosis. Objective Data Vital Signs Vital Signs: Vital Signs - 24 hr 07/05/22 10:20 07/05/22 12:00 07/05/22 14:20 Temperature 97.3 F L Pulse Rate 81 65 Respiratory Rate 18 Blood Pressure 124/72 Pulse Oximetry 95 Oxygen Delivery Room Air 07/05/22 14:00 07/05/22 14:25 07/05/22 14:35 Temperature 97.3 F L Pulse Rate 65 65 64 Respiratory Rate 18 18 18 Blood Pressure 124/72 127/76 126/74 Pulse Oximetry 95 98 99 Oxygen Delivery 07/05/22 16:00 07/05/22 20:00 07/05/22 20:00 Temperature 97.3 F L Pulse Rate 67 64 67 Respiratory Rate 18 Blood Pressure 126/74 Pulse Oximetry 99 Oxygen Delivery 07/05/22 20:00 07/05/22 22:00 07/06/22 00:00 Temperature 97.2 F L Pulse Rate 67 65 76 Respiratory Rate 18 18 Blood Pressure 123/60 Pulse Oximetry 99 97 Oxygen Delivery Room Air 07/06/22 04:00 07/06/22 06:00 07/06/22 08:17 Temperature 97.4 F L Pulse Rate 76 74 77 Respiratory Rate 20 Blood Pressure 118/80 Pulse Oximetry 98 Oxygen Delivery 07/06/22 08:16 07/06/22 08:00 Temperature Pulse Rate 77 Respiratory Rate 20 Blood Pressure Pulse Oximetry 98 Oxygen Delivery Room Air Intake/Output Intake/Output: Intake & Output 07/03/22 07/04/22 07/05/22 07/06/22 22:59 22:59 23:59 23:59 Intake Total 300 Output Total Balance 300 Meds/Results Medications: Active Medications Generic Name Dose Route Start Last Admin Trade Name Freq PRN Reason Stop Dose Admin Calcitriol 0.25 mcg 07/04/22 09:00 07/06/22 08:16 Calcitriol 0.25 Mcg Capsule PO 0.25 mcg DAILY ROSS Administration Calcium Carbonate 500 mg 07/03/22 21:37 Calcium Carbonate (Tums) 500 Mg (200 Mg Elemental) PO DAILY PRN Acid Reflux Dextrose 12.5 gm 07/03/22 21:28 Dextrose 50% 25 Gm/50 Ml Syringe IV PUSH PRN PRN Hypoglycemia Protocol Dextrose 12.5 gm 07/05/22 15:40 Dextrose 50% 25 Gm/50 Ml Syringe IV PUSH PRN PRN Hypoglycemia Protocol Fenofibrate 145 mg 07/04/22 09:00
[2022-07-06] MEDS: PERFLUTREN LIPID MICROSPHERES 1.5 ML VIAL DILUTED TO 10 ML TOTAL VOLUME IV PUSH (10:50)
[2022-07-06 11:32] LABS: Glucose Point of Care 147 mg/dl (65-105)
[2022-07-06] MEDS: traMADol HCL (*CRX) 50 MG TABLET PO ×3 (11:35→23:40)
[2022-07-06] MEDS: INSULIN GLARGINE (*BKC) 100 UNITS/ML 15 UNITS SUB-Q (11:36)
[2022-07-06 16:45] LABS: Glucose Point of Care 140 mg/dl (65-105)
--- NOTE | 2022-07-06 17:14 | P.PNIM_ITS ---
Progress Note: A&P Assessment and Plan (1) Acute on chronic renal failure: Code(s): N17.9 - Acute kidney failure, unspecified; N18.9 - Chronic kidney disease, unspecified Status: Acute Assessment and Plan: * Chronic renal failure Stage 5 * BUN/Cr upon arrival was 138/4.00 * renal function is improving closer to baseline, 115/3.5 * Baseline creatinine does appear to be 3.00-4.00 * Urine labs sodium: 38, Urea 894, Creatinine 63.6 * Fena score 1.6 intrinsic * Renal ultrasound Normal kidney without hydronephrosis * appreciate nephrology consultation * Trend urine output (2) Transaminitis: Code(s): R74.01 - Elevation of levels of liver transaminase levels Status: Acute Assessment and Plan: AST/ALT 214/126 alk phos 161 on admission * LFTs improving * Hep panel negative * RUQ ultrasound nonspecific small amount of perihepatic ascites otherwise normal * Continue to trend LFTs * CT of the abdomen on 07/02/22 did show minimal ascites along the liver and gallbladder (3) Elevated creatine kinase: Code(s): R74.8 - Abnormal levels of other serum enzymes Status: Acute Assessment and Plan: CK upon admission is 801 * improved following appropriate IV hydration * CK is near normal at this time * IV fluids discontinued to avoid hypervolemia (4) Heart failure with reduced ejection fraction: Code(s): I50.20 - Unspecified systolic (congestive) heart failure Status: Acute Assessment and Plan: Chronic diastolic heart failure * Echo with severely reduced EF of less than 15% * patient will need Cardiology consultation for appropriate medical management and consideration of LifeVest. 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, right occipital and bilateral parietal lobes * orthostatic blood pressures stable with no hypo/hypertension noted * Could be related to renal failure, fluid volume shifts, hypotension, stroke * appreciate PT/OT eval * implement fall precautions (6) Insulin dependent type 2 diabetes mellitus: Code(s): E11.9 - Type 2 diabetes mellitus without complications; 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 the patient appears confused today and is not able to provide any relevant history. He has a patient's sitter in the room. Per the patient's sitter, he has been restless and impulsive, making frequent attempts to get out of bed unsafely. Review of Systems Review of Systems: All systems reviewed & are unremarkable except as noted in HPI and below
--- NOTE | 2022-07-06 17:14 | PM.IMPN ---
Progress Note: A&P Assessment and Plan (1) Acute on chronic renal failure: Code(s): N17.9 - Acute kidney failure, unspecified; N18.9 - Chronic kidney disease, unspecified Status: Acute Assessment and Plan: Chronic renal failure Stage 5 BUN/Cr upon arrival was 138/4.00 renal function is improving closer to baseline, 115/3.5 Baseline creatinine does appear to be 3.00-4.00 Urine labs sodium: 38, Urea 894, Creatinine 63.6 Fena score 1.6 intrinsic Renal ultrasound Normal kidney without hydronephrosis appreciate nephrology consultation Trend urine output (2) Transaminitis: Code(s): R74.01 - Elevation of levels of liver transaminase levels Status: Acute Assessment and Plan: AST/ALT 214/126 alk phos 161 on admission LFTs improving Hep panel negative RUQ ultrasound nonspecific small amount of perihepatic ascites otherwise normal Continue to trend LFTs CT of the abdomen on 07/02/22 did show minimal ascites along the liver and gallbladder (3) Elevated creatine kinase: Code(s): R74.8 - Abnormal levels of other serum enzymes Status: Acute Assessment and Plan: CK upon admission is 801 improved following appropriate IV hydration CK is near normal at this time IV fluids discontinued to avoid hypervolemia (4) Heart failure with reduced ejection fraction: Code(s): I50.20 - Unspecified systolic (congestive) heart failure Status: Acute Assessment and Plan: Chronic diastolic heart failure Echo with severely reduced EF of less than 15% patient will need Cardiology consultation for appropriate medical management and consideration of LifeVest. 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, right occipital and bilateral parietal lobes orthostatic blood pressures stable with no hypo/hypertension noted Could be related to renal failure, fluid volume shifts, hypotension, stroke appreciate PT/OT eval implement fall precautions (6) Insulin dependent type 2 diabetes mellitus: Code(s): E11.9 - Type 2 diabetes mellitus without complications; 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 the patient appears confused today and is not able to provide any relevant history. He has a patient's sitter in the room. Per the patient's sitter, he has been restless and impulsive, making frequent attempts to get out of bed unsafely. Review of Systems Review of Systems: All systems reviewed & are unremarkable except as noted in HPI and below Exam Narrative: General: Well-nourished, chronically ill-appearing 77-year-old male, sitting up in bed, comfortable, NARD Neuro: awake, alert and oriented to self, speech clear, no focal neuro deficits noted HEENMT: normocephalic, atraumatic, EOMI, sclerae anicteric Respiratory: clear to auscultation bilaterally, nonlabored breathing Cardio: regular rate, regular rhythm with S1-S2 Abdomen: nondistended, normoactive bowel sounds, soft, nontender to palpation Ext
--- NOTE | 2022-07-06 19:12 | PM.CNCAR ---
Assessment and Plan Assessment and plan (1) Systolic dysfunction: Code(s): I51.9 - Heart disease, unspecified Status: Acute Assessment and Plan: Appears euvolemic. Unknown etiology. 07/06/22 Echo: EF <15%, grade II diastolic dysfunction, mod biatrial enlargement, mild MR, mild-mod TR, RVSP 59 mmHg. Discuss with his POA that we would normally pursue LHC, ICD, but given his DNR status, mental status, we would pursue conservative medical therapy. He is on Metoprolol. Would add Entresto if kidney function remains stable at his baseline function. Diurese as needed. His regular clinical education consultant is Dr. Millard at [place], [place]. (2) CAD (coronary artery disease), autologous vein bypass graft: Code(s): I25.810 - Atherosclerosis of coronary artery bypass graft(s) without angina pectoris Status: Acute (3) Chronic kidney disease: Code(s): N18.9 - Chronic kidney disease, unspecified Status: Acute Assessment and Plan: Followed by nephrology. Apparently he would refuse dialysis per POA. (4) Hypertension: Code(s): I10 - Essential (primary) hypertension Status: Acute Assessment and Plan: Stable. (5) Dyslipidemia: Code(s): E78.5 - Hyperlipidemia, unspecified Status: Acute Assessment and Plan: On Atorvastatin, Fenofibrate, Fish Oil. History of Present Illness History of Present Illness Consult date/time: 07/06/22 19:12 Reason For Visit: Chronic Kidney Disease/Hyperuricemia Narrative: 77 yr old man presented to ER via EMS 3 days ago for dizziness/blurry vision. He has a history of CAD/CABG x 4 vessels in Feb 2021 at [facility], dyslipidemia, hypertension, DM, CKD. His regular clinical education consultant is Dr. Millard at [place] and his PCP is Dr. Jalloh in [place]. I was unable to obtain any useful information or history from patient as he is confused and mumbling, and falling asleep very frequently. But, I was able to call his POA, Caty Staley who is his daughter and she gave me his history. He lives at [facility] living [facility], alert and oriented, able to walk a long hallway at [facility] without any problems, likes to play pool. He is hard of hearing. After open heart surgery he did have some confusion for a few months, then recovered. Last week he fell, the a couple of days later he vomited. He came to ER but signed out AMA. Then a day later he felt weak, dizzy, double vision, and insisted he return to ER. Caty was surprised to hear that he was became confused today. Review of Systems Review of Systems: All systems reviewed & are unremarkable except as noted in HPI and below ROS unobtainable: Yes unobtainable due to mental status PMFSH Past Medical History Medical History Chronic kidney disease, stage 4 (severe) Chronic pain syndrome Coronary artery disease Heart failure with reduced ejection fraction EF reportedly as low as 45 to 50%. Hypertension Insulin dependent type 2 diabetes mellitus Transient ischemic attack Upper GI bleed Surgical History Surgical History History of coronary artery bypass graft History of coronary artery stent placement History of esophagogastroduodenoscopy (EGD) Family History Family History Other Diabetes mellitus Hypertension Social History Social History Social History: Surrogate medical decision maker: Caty Staley, daughter. Code status: Full code. Smoking status: Never smoker Alcohol intake: never Substance use: never Lack of Transportation: YES Lack of Food: Never True Current Housing: I Have Housing Concerned About Future Housing: No Difficulty Paying Gas/Electric Bills: No Difficulty Paying for Meds: No Currently Unemployed: No Education: Bachelor's Degree
[2022-07-06] MEDS: TAMSULOSIN HCL 0.4 MG CAPSULE PO (20:34)
[2022-07-06 20:54] LABS: Glucose Point of Care 99 mg/dl (65-105)
[2022-07-06 22:10] LABS: Glucose Point of Care 118 mg/dl (65-105)
[2022-07-07] VITALS (16 sets, daily range): BP systolic 113–132; BP diastolic 55–83; PULSE 57–83; RESP 16–22; TEMP 36–36.8; O2SAT 90–98
[2022-07-07] MEDS: traMADol HCL (*CRX) 50 MG TABLET PO ×2 (05:28→20:10)
[2022-07-07 06:56] LABS: Hematocrit 35.5 % (42.0-52.0); Mean Corpuscular Hemoglobin 29.1 pg (26-34); Mean Corpuscular Volume 93.9 fl (80-100); Mean Platelet Volume 12.1 fl (7.4-10.4); Platelet Count Result 237 k/mm3 (150-375); Red Blood Count 3.78 M/mm3 (4.6-6.20); Red Cell Distribution Width 18.6 % (11.5-14.5)
[2022-07-07 07:14] LABS: Anion Gap 9 mmol/L (8-16); Blood Urea Nitrogen 104 mg/dL (9-20); Calcium 9.2 mg/dL (8.4-10.2); Carbon Dioxide 27 mmol/L (22-30); Chloride 111 mmol/L (98-107); Estimated CRCL calculation 15 ml/min; Estimated Glomerular Filt Rate 17; Glucose 53 mg/dL (65-110); Potassium 3.6 mmol/L (3.4-5.0); Sodium 147 mmol/L (137-145)
[2022-07-07] MEDS: GLUCOSE ORAL GEL 15 GM OF GLUCSE IN 37.5 GM TUBE PO (07:17)
[2022-07-07 07:49] LABS: Glucose Point of Care 76 mg/dl (65-105)
--- NOTE | 2022-07-07 08:02 | PM.PNCARD ---
Progress Note: A&P Assessment and Plan (1) Systolic dysfunction: Code(s): I51.9 - Heart disease, unspecified Status: Acute Assessment and Plan: Appears euvolemic. Unknown etiology. 07/06/22 Echo: EF <15%, grade II diastolic dysfunction, mod biatrial enlargement, mild MR, mild-mod TR, RVSP 59 mmHg. Discuss with his POA that we would normally pursue LHC, life vest/ICD, but given his DNR status, mental status, we would pursue conservative medical therapy. He is on Metoprolol. Add low dose Entresto 12-13 mg BID as kidney function appears to be at his baseline. Diurese as needed. His regular pottery decoration designer is Dr. Millard at [place], [place]. (2) CAD (coronary artery disease), autologous vein bypass graft: Code(s): I25.810 - Atherosclerosis of coronary artery bypass graft(s) without angina pectoris Status: Acute (3) Chronic kidney disease: Code(s): N18.9 - Chronic kidney disease, unspecified Status: Acute Assessment and Plan: Followed by nephrology. Apparently he would refuse dialysis per POA. (4) Hypertension: Code(s): I10 - Essential (primary) hypertension Status: Acute Assessment and Plan: Stable. (5) Dyslipidemia: Code(s): E78.5 - Hyperlipidemia, unspecified Status: Acute Assessment and Plan: On Atorvastatin, Fenofibrate, Fish Oil. Subjective Date/time seen: 07/07/22 08:02 Interval history: He is alert and oriented x 3 today. Denies chest pain or sob. Exam Const: General: other Orientation/consciousness: oriented to person, oriented to place and oriented to time Resp: Auscultation: clear to auscultation bilaterally, no crackles, no rales, no rhonchi and no wheezes Cardio: Rate: regular rate Rhythm: regular rhythm Heart sounds: no murmurs Peripheral pulses: dorsalis pedis present Neuro: General: No oriented to person, No oriented to place and No oriented to time Extrem: Right lower extremity: no edema Left lower extremity: no edema Objective Data Vital Signs Vital Signs: Vital Signs - 24 hr 07/06/22 08:17 07/06/22 08:16 07/06/22 12:04 Temperature Pulse Rate 77 78 Respiratory Rate 20 Blood Pressure Pulse Oximetry 98 Oxygen Delivery Room Air 07/06/22 15:05 07/06/22 15:05 07/06/22 15:12 Temperature 97.7 F 97.7 F Pulse Rate 67 67 66 Respiratory Rate 19 19 Blood Pressure 132/71 132/71 137/71 Pulse Oximetry 92 92 100 Oxygen Delivery 07/06/22 15:14 07/06/22 16:00 07/06/22 20:00 Temperature 96.8 F L Pulse Rate 68 63 65 Respiratory Rate 22 H Blood Pressure 123/75 134/88 Pulse Oximetry 100 Oxygen Delivery 07/06/22 20:50 07/06/22 20:49 07/06/22 20:49 Temperature 96.8 F L 96.8 F L 96.8 F L Pulse Rate 65 68 81 Respiratory Rate 22 H 22 H 22 H Blood Pressure 134/88 128/88 135/71 Pulse Oximetry 100 95 84 L Oxygen Delivery 07/06/22 20:00 07/06/22 20:00 07/07/22 00:00 Temperature Pulse Rate 57 L 60 Respiratory Rate Blood Pressure Pulse Oximetry Oxygen Delivery Room Air 07/07/22 04:00 07/07/22 05:17 07/07/22 07:50 Temperature 96.8 F L Pulse Rate 57 L 69 Respiratory Rate 18 18 Blood Pressure 132/71 Pulse Oximetry 98 98 Oxygen Delivery Room Air Intake/Output Intake/Output: Intake & Output 07/04/22 07/05/22 07/06/22 07/07/22 22:59 23:59 23:59 23:59 Intake Total 1260 120 Output Total 200 400 Balance 1060 -280 Meds/Results Medications: Active Medications Generic Name Dose Route Start Last Admin Trade Name Aaronq PRN Reason Stop Dose Admin Acetaminophen 650 mg 07/07/22 07:31 Acetaminophen 325 Mg Tablet PO Q6H PRN Pain 1-3 Calcitriol 0.25 mcg 07/04/22 09:00 07/06/22 08:16 Calcitriol 0.25 Mcg Capsule PO 0.25 mcg DAILY ROSS Administration Calcium Carbonate 500 mg 07/03/22 21:37 Calcium Carbonate (Tums) 500 Mg (200 Mg Elemental) PO DAILY PRN Acid Reflux Dextrose 12.5 gm 03
[2022-07-07] MEDS: PANTOPRAZOLE 40 MG TABLET PO ×2 (09:19→16:40)
[2022-07-07] MEDS: FINASTERIDE 5 MG TABLET PO (09:19)
[2022-07-07] MEDS: FENOFIBRATE NANOCRYSTALLIZED 145 MG TABLET PO (09:19)
[2022-07-07] MEDS: OMEGA 3 POLYUNSAT FATTY ACIDS 1 GM CAP PO (09:19)
[2022-07-07] MEDS: METOPROLOL SUCCINATE EXT REL 25 MG TABCR PO (09:19)
[2022-07-07] MEDS: SACUBITRIL/VALSARTAN 12-13 MG TABLET 1 TAB PO ×2 (09:20→20:10)
[2022-07-07] MEDS: calcitrioL 0.25 MCG CAPSULE PO (09:20)
[2022-07-07 11:52] LABS: Glucose Point of Care 213 mg/dl (65-105)
[2022-07-07] MEDS: INSULIN ASPART (*BKC) 100 UNITS/ML SUB-Q (12:01)
[2022-07-07 14:51] LABS: Glucose Point of Care 90 mg/dl (65-105)
--- NOTE | 2022-07-07 15:37 | PM.PNNEP ---
Progress Note: A&P Assessment and Plan (1) Chronic kidney disease, stage 5: Code(s): N18.5 - Chronic kidney disease, stage 5 Status: Acute Assessment and Plan: the patient has chronic kidney disease stage 5. He has itching which seems to be is only symptom. He does have dizziness and ataxia which I suppose could be part of the uremic syndrome, however need to rule out other causes as EDMUND Israel is doing. His creatinine is A little better. urinalysis is bland urine electrolytes and FEurea are not pre renal CK is minimally high, not enough to affect the kidneys. It is decreasing. I talked with Dr. Ordaz at length about the patient. I talked with the patient's daughter at length as well. she says that the patient isn't sure he wants to do dialysis at all because his brother had a bad experience with dialysis. At 1st he said he would not do it at all and then as he gets closer he had expressed some interest in doing it. I discussed with her at length. He has not have any significant symptoms that would necessitate a starting dialysis in hospital. She and he and the family will meet Dr. Ordaz as an outpatient to decide about dialysis and if so they can have a fistula placed as an outpatient. 25 min were spent in conversation apart from clinical activity (2) Dizziness: Code(s): R42 - Dizziness and giddiness Status: Acute Assessment and Plan: the patient has ataxia with walking. MRI negative (3) Insulin dependent type 2 diabetes mellitus: Code(s): E11.9 - Type 2 diabetes mellitus without complications; Z79.4 - FDC (current) use of insulin Status: Acute Assessment and Plan: Patient has diabetes. He is on Accu-Cheks and sliding scale insulin per hospitalist. (4) Hypertension: Code(s): I10 - Essential (primary) hypertension Status: Acute Assessment and Plan: His blood pressure is under very good control Subjective Date/time seen: 07/07/22 15:37 Interval history: Patricio is comfortable in bed. Urinating okay. Eating well. No nausea, chest pain, or shortness of breath. Exam Narrative: WDWN in NAD skin no rash head ncat lungs clear bilaterally cor reg no rub or gallop abd BS+ nontender and soft ext no edema or cyanosis. Objective Data Vital Signs Vital Signs: Vital Signs - 24 hr 07/06/22 16:00 07/06/22 20:00 07/06/22 20:50 Temperature 96.8 F L 96.8 F L Pulse Rate 63 65 65 Respiratory Rate 22 H 22 H Blood Pressure 134/88 134/88 Pulse Oximetry 100 100 Oxygen Delivery 07/06/22 20:49 07/06/22 20:49 07/06/22 20:00 Temperature 96.8 F L 96.8 F L Pulse Rate 68 81 57 L Respiratory Rate 22 H 22 H Blood Pressure 128/88 135/71 Pulse Oximetry 95 84 L Oxygen Delivery 07/06/22 20:00 07/07/22 00:00 07/07/22 04:00 Temperature Pulse Rate 60 57 L Respiratory Rate Blood Pressure Pulse Oximetry Oxygen Delivery Room Air 07/07/22 05:17 07/07/22 07:50 07/07/22 08:00 Temperature 96.8 F L Pulse Rate 69 68 Respiratory Rate 18 18 Blood Pressure 132/71 Pulse Oximetry 98 98 Oxygen Delivery Room Air 07/07/22 09:19 07/07/22 11:40 07/07/22 11:45 Temperature 98.2 F Pulse Rate 79 63 63 Respiratory Rate 16 16 Blood Pressure 125/66 128/63 Pulse Oximetry 95 95 Oxygen Delivery 07/07/22 12:04 07/07/22 14:00 Temperature 98.2 F Pulse Rate 59 L 67 Respiratory Rate 18 Blood Pressure 113/55 L Pulse Oximetry 98 Oxygen Delivery Intake/Output Intake/Output: Intake & Output 07/04/22 07/05/22 07/06/22 07/07/22 22:59 23:59 23:59 23:59 Intake Total 1260 720 Output Total 200 400 Balance 1060 320 Meds/Results Medications: Active Medications Generic Name Dose Route Start Last Admin Trade Name Freq PRN Reason Stop Dose Admin Acetaminophen 650 mg 07/07/22 07:31 Acetaminophen 325 Mg Tablet PO Q6H PRN Pain
--- NOTE | 2022-07-07 16:46 | P.PNIM_ITS ---
Progress Note: A&P Assessment and Plan (1) Acute on chronic renal failure: Code(s): N17.9 - Acute kidney failure, unspecified; N18.9 - Chronic kidney disease, unspecified Status: Acute Assessment and Plan: Pt with history of CKD stage 5 * BUN/Cr upon arrival was 138/4.00 * Renal function is improving closer to baseline. BUN trending down today to 115, creatinine 3.5 * Renal ultrasound revealed normal kidneys without hydronephrosis * Appreciate nephrology consultation * Pt states he would not be agreeable to undergo dialysis. Dr. Reyes spoke with pts daughter/POA regarding this. Pt reportedly has stated he would consider if needed. No urgent dialysis required this hospitalization per nephrology. Follow up with pts office machine installer Dr. Ordaz as an outpatient to consider dialysis (2) Transaminitis: Code(s): R74.01 - Elevation of levels of liver transaminase levels Status: Acute Assessment and Plan: AST/ALT 214/126 alk phos 161 on admission * LFTs trending down * Hep panel negative * RUQ ultrasound nonspecific small amount of perihepatic ascites otherwise normal * Continue to trend LFTs (3) Elevated creatine kinase: Code(s): R74.8 - Abnormal levels of other serum enzymes Status: Acute Assessment and Plan: CK upon admission 801 * improved following appropriate IV hydration * CK is near normal at this time * IV fluids discontinued to avoid hypervolemia * may partly explain elevated LFTs which are improving (4) Heart failure with reduced ejection fraction: Code(s): I50.20 - Unspecified systolic (congestive) heart failure Status: Acute Assessment and Plan: Chronic diastolic heart failure * Echo completed this admission with severely reduced EF of less than 15% * Appreciate cardiology consultation * LHC and ICD deferred given patients comorbid conditions and DNR status. Pt states he would not wish to undergo any further testing * Follow up with his primary inventory auditor (Dr. Millard in [place]) * monitor volume status. Patient appears euvolemic * continue metoprolol 25 mg daily * furosemide on hold due to SHOAIB * Entresto recommended per cardiology however cannot initiate at this time due to renal function. 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 Pt did not eat dinner last night which likely contributed. Blood sugars improved with hypoglycemic protocol. * hold Lantus * monitor glucose trends Subjective Date/time seen
--- NOTE | 2022-07-07 16:46 | PM.IMPN ---
Progress Note: A&P Assessment and Plan (1) Acute on chronic renal failure: Code(s): N17.9 - Acute kidney failure, unspecified; N18.9 - Chronic kidney disease, unspecified Status: Acute Assessment and Plan: Pt with history of CKD stage 5 BUN/Cr upon arrival was 138/4.00 Renal function is improving closer to baseline. BUN trending down today to 115, creatinine 3.5 Renal ultrasound revealed normal kidneys without hydronephrosis Appreciate nephrology consultation Pt states he would not be agreeable to undergo dialysis. Dr. Reyes spoke with pts daughter/POA regarding this. Pt reportedly has stated he would consider if needed. No urgent dialysis required this hospitalization per nephrology. Follow up with pts fixing carpenter Dr. Ordaz as an outpatient to consider dialysis (2) Transaminitis: Code(s): R74.01 - Elevation of levels of liver transaminase levels Status: Acute Assessment and Plan: AST/ALT 214/126 alk phos 161 on admission LFTs trending down Hep panel negative RUQ ultrasound nonspecific small amount of perihepatic ascites otherwise normal Continue to trend LFTs (3) Elevated creatine kinase: Code(s): R74.8 - Abnormal levels of other serum enzymes Status: Acute Assessment and Plan: CK upon admission 801 improved following appropriate IV hydration CK is near normal at this time IV fluids discontinued to avoid hypervolemia may partly explain elevated LFTs which are improving (4) Heart failure with reduced ejection fraction: Code(s): I50.20 - Unspecified systolic (congestive) heart failure Status: Acute Assessment and Plan: Chronic diastolic heart failure Echo completed this admission with severely reduced EF of less than 15% Appreciate cardiology consultation LHC and ICD deferred given patients comorbid conditions and DNR status. Pt states he would not wish to undergo any further testing Follow up with his primary bow stapler (Dr. Millard in [place]) monitor volume status. Patient appears euvolemic continue metoprolol 25 mg daily furosemide on hold due to SHOAIB Entresto recommended per cardiology however cannot initiate at this time due to renal function. 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 Pt did not eat dinner last night which likely contributed. Blood sugars improved with hypoglycemic protocol. hold Lantus monitor glucose trends Subjective Date/time seen: 07/07/22 16:46 Interval history: date of service: 07/07/2022 Patricio Oquendo ALEISHA is a 77-year-old male with history of stage IV CKD, hypertension, diabetes, TIA, and CAD who is seen in follow-up for acute on chronic kidney disease. He appears more alert today. He is able to answer most questions appropriately. He was up in the chair at the time of my visit. He states that he feels well but does complain of weakness and fatigue. Denies n
[2022-07-07 16:54] LABS: Glucose Point of Care 145 mg/dl (65-105)
[2022-07-07] MEDS: TAMSULOSIN HCL 0.4 MG CAPSULE PO (20:10)
[2022-07-07 20:40] LABS: Glucose Point of Care 210 mg/dl (65-105)
[2022-07-08] VITALS (11 sets, daily range): BP systolic 117–135; BP diastolic 59–72; PULSE 57–74; RESP 18; TEMP 35.3–36.2; O2SAT 97–100
[2022-07-08 05:15] LABS: Basophils Absolute Auto 0.1 K/mm3 (0.0-0.1); Basophils Percent Auto 1.1 % (0.2-1.2); Eosinophils Absolute Auto 0.4 K/mm3 (0-0.3); Eosinophils Percent Auto 5.8 % (0-4.4); Hematocrit 33.9 % (42.0-52.0); Hemoglobin 10.7 g/dL (14.0-18.0); Immature Granulocyte Absolute 0.01 K/mm3 (0.00-0.031); Immature Granulocyte Percent A 0.2 % (0-0.5); Lymphocytes Absolute Auto 1.33 K/mm3 (0.9-3.2); Lymphocytes Percent Auto 20.3 % (18.3-44.2); Mean Corpuscular HGB Conc 31.6 g/dl (32-36); Mean Corpuscular Hemoglobin 29.7 pg (26-34); Mean Corpuscular Volume 94.2 fl (80-100); Mean Platelet Volume 12.2 fl (7.4-10.4); Monocytes Absolute Auto 0.8 K/mm3 (0.1-0.6); Monocytes Percent Auto 11.4 % (2.6-8.5); Neutrophils Percent Auto 61.2 % (45.5-73.1); Platelet Count Result 230 k/mm3 (150-375); Red Cell Distribution Width 18.6 % (11.5-14.5); White Blood Count 6.6 K/mm3 (4.5-10.0)
[2022-07-08 05:33] LABS: Alanine Aminotransferase 91 U/L (6-50); Albumin Level 3.5 g/dL (3.5-5.1); Alkaline Phosphatase 104 U/L (38-126); Anion Gap 6 mmol/L (8-16); Aspartate Amino Transferase 90 U/L (17-59); Bilirubin,Total 0.9 mg/dL (0.2-1.3); Blood Urea Nitrogen 92 mg/dL (9-20); Calcium 9.2 mg/dL (8.4-10.2); Carbon Dioxide 27 mmol/L (22-30); Chloride 110 mmol/L (98-107); Estimated CRCL calculation 16 ml/min; Estimated Glomerular Filt Rate 18; Glucose 205 mg/dL (65-110); Sodium 143 mmol/L (137-145)
--- NOTE | 2022-07-08 07:57 | PM.PNCARD ---
Progress Note: A&P Assessment and Plan (1) Systolic dysfunction: Code(s): I51.9 - Heart disease, unspecified Status: Acute Assessment and Plan: Appears euvolemic. Unknown etiology. 07/06/22 Echo: EF <15%, grade II diastolic dysfunction, mod biatrial enlargement, mild MR, mild-mod TR, RVSP 59 mmHg. Discuss with his POA that we would normally pursue LHC, life vest/ICD, but given his DNR status we would pursue conservative medical therapy. He is on Metoprolol. Increase Entresto 24-26 mg BID as kidney function appears to be at his baseline. Diurese as needed. His regular city planner is Dr. Millard at [place], [place]. (2) CAD (coronary artery disease), autologous vein bypass graft: Code(s): I25.810 - Atherosclerosis of coronary artery bypass graft(s) without angina pectoris Status: Acute (3) Chronic kidney disease: Code(s): N18.9 - Chronic kidney disease, unspecified Status: Acute Assessment and Plan: Followed by nephrology. Apparently he perhaps is changing his mind and would consider dialysis if needed. (4) Hypertension: Code(s): I10 - Essential (primary) hypertension Status: Acute Assessment and Plan: Stable. (5) Dyslipidemia: Code(s): E78.5 - Hyperlipidemia, unspecified Status: Acute Assessment and Plan: On Atorvastatin, Fenofibrate, Fish Oil. Subjective Date/time seen: 07/08/22 07:57 Interval history: He is alert and oriented x 3 today. Denies chest pain or sob. Exam Const: General: alert and other; No in distress Orientation/consciousness: No oriented to person, No oriented to place and No oriented to time Resp: Auscultation: clear to auscultation bilaterally, no crackles, no rales, no rhonchi and no wheezes Cardio: Rate: regular rate Rhythm: regular rhythm Heart sounds: no murmurs Peripheral pulses: dorsalis pedis present Neuro: General: No oriented to person, No oriented to place and No oriented to time Extrem: Right lower extremity: no edema Left lower extremity: no edema Objective Data Vital Signs Vital Signs: Vital Signs - 24 hr 07/07/22 08:00 07/07/22 09:19 07/07/22 11:40 Temperature 98.2 F Pulse Rate 68 79 63 Respiratory Rate 16 Blood Pressure 125/66 Pulse Oximetry 95 Oxygen Delivery 07/07/22 11:45 07/07/22 12:04 07/07/22 14:00 Temperature 98.2 F Pulse Rate 63 59 L 67 Respiratory Rate 16 18 Blood Pressure 128/63 113/55 L Pulse Oximetry 95 98 Oxygen Delivery 07/07/22 16:00 07/07/22 19:31 07/07/22 19:45 Temperature 97.1 F L 97.1 F L Pulse Rate 64 58 L 58 L Respiratory Rate 22 H 22 H Blood Pressure 114/63 114/63 Pulse Oximetry 90 90 Oxygen Delivery 07/07/22 19:42 07/07/22 19:43 07/07/22 20:00 Temperature 97.3 F L 97.6 F Pulse Rate 60 83 67 Respiratory Rate 22 H 22 H Blood Pressure 123/83 123/83 Pulse Oximetry 92 92 Oxygen Delivery 07/07/22 20:00 07/08/22 00:00 07/08/22 03:02 Temperature 96.4 F L Pulse Rate 66 66 Respiratory Rate 18 Blood Pressure 131/61 Pulse Oximetry 98 Oxygen Delivery Room Air 07/08/22 04:00 Temperature Pulse Rate 57 L Respiratory Rate Blood Pressure Pulse Oximetry Oxygen Delivery Intake/Output Intake/Output: Intake & Output 07/05/22 07/06/22 07/07/22 07/08/22 23:59 23:59 23:59 23:59 Intake Total 1260 1160 190 Output Total 200 400 Balance 1060 760 190 Meds/Results Medications: Active Medications Generic Name Dose Route Start Last Admin Trade Name Олег PRN Reason Stop Dose Admin Acetaminophen 650 mg 07/07/22 07:31 Acetaminophen 325 Mg Tablet PO Q6H PRN Pain 1-3 Calcitriol 0.25 mcg 07/04/22 09:00 07/07/22 09:20 Calcitriol 0.25 Mcg Capsule PO 0.25 mcg DAILY ROSS Administration Calcium Carbonate 500 mg 07/03/22 21:37 Calcium Carbonate (Tums) 500 Mg (200 Mg Elemental) PO DAILY PRN Acid Reflux Dextrose 12.5 gm 07/03/22 21:28
[2022-07-08 08:29] LABS: Glucose Point of Care 158 mg/dl (65-105)
[2022-07-08] MEDS: FENOFIBRATE NANOCRYSTALLIZED 145 MG TABLET PO (09:53)
[2022-07-08] MEDS: FINASTERIDE 5 MG TABLET PO (09:54)
[2022-07-08] MEDS: METOPROLOL SUCCINATE EXT REL 25 MG TABCR PO (09:55)
[2022-07-08] MEDS: POLYSACCHARIDE IRON COMPLEX 150 MG CAPSULE PO (09:55)
[2022-07-08] MEDS: SACUBITRIL/VALSARTAN 24-26 MG TABLET 1 TAB PO (09:55)
[2022-07-08] MEDS: OMEGA 3 POLYUNSAT FATTY ACIDS 1 GM CAP PO (09:55)
[2022-07-08] MEDS: PANTOPRAZOLE 40 MG TABLET PO (09:55)
--- NOTE | 2022-07-08 10:02 | PM.PNNEP ---
Progress Note: A&P Assessment and Plan (1) Chronic kidney disease, stage 5: Code(s): N18.5 - Chronic kidney disease, stage 5 Status: Acute Assessment and Plan: the patient has chronic kidney disease stage 5. Itching is not too bad. His BUN creatinine her even better at 92/3.3. urinalysis is bland urine electrolytes and FEurea are not pre renal CK is minimally high, not enough to affect the kidneys. It is decreasing. Patient has plans to see Dr. Ordaz in the office by he is okay for discharge whenever everyone else's ready. (2) Dizziness: Code(s): R42 - Dizziness and giddiness Status: Acute Assessment and Plan: the patient has ataxia with walking. MRI negative (3) Insulin dependent type 2 diabetes mellitus: Code(s): E11.9 - Type 2 diabetes mellitus without complications; Z79.4 - retirement (current) use of insulin Status: Acute Assessment and Plan: Patient has diabetes. He is on Accu-Cheks and sliding scale insulin per hospitalist. (4) Hypertension: Code(s): I10 - Essential (primary) hypertension Status: Acute Assessment and Plan: Blood pressure is running in the 130s. Subjective Date/time seen: 07/08/22 10:02 Interval history: Patricio is comfortable. He just got back from going to the bathroom with the nurse. He is in good spirits. Exam Narrative: WDWN in NAD skin no rash head ncat lungs clear cor reg no rub or gallop abd BS+ nontender ext no edema Objective Data Vital Signs Vital Signs: Vital Signs - 24 hr 07/07/22 11:40 07/07/22 11:45 07/07/22 12:04 Temperature 98.2 F Pulse Rate 63 63 59 L Respiratory Rate 16 16 Blood Pressure 125/66 128/63 Pulse Oximetry 95 95 Oxygen Delivery 07/07/22 14:00 07/07/22 16:00 07/07/22 19:31 Temperature 98.2 F 97.1 F L Pulse Rate 67 64 58 L Respiratory Rate 18 22 H Blood Pressure 113/55 L 114/63 Pulse Oximetry 98 90 Oxygen Delivery 07/07/22 19:45 07/07/22 19:42 07/07/22 19:43 Temperature 97.1 F L 97.3 F L 97.6 F Pulse Rate 58 L 60 83 Respiratory Rate 22 H 22 H 22 H Blood Pressure 114/63 123/83 123/83 Pulse Oximetry 90 92 92 Oxygen Delivery 07/07/22 20:00 07/07/22 20:00 07/08/22 00:00 Temperature Pulse Rate 67 66 Respiratory Rate Blood Pressure Pulse Oximetry Oxygen Delivery Room Air 07/08/22 03:02 07/08/22 04:00 07/08/22 09:51 Temperature 96.4 F L Pulse Rate 66 57 L 70 Respiratory Rate 18 Blood Pressure 131/61 135/66 Pulse Oximetry 98 Oxygen Delivery 07/08/22 09:55 Temperature Pulse Rate 70 Respiratory Rate Blood Pressure Pulse Oximetry Oxygen Delivery Intake/Output Intake/Output: Intake & Output 07/05/22 07/06/22 07/07/22 07/08/22 23:59 23:59 23:59 23:59 Intake Total 1260 1160 430 Output Total 200 400 Balance 1060 760 430 Meds/Results Medications: Active Medications Generic Name Dose Route Start Last Admin Trade Name Freq PRN Reason Stop Dose Admin Acetaminophen 650 mg 07/07/22 07:31 Acetaminophen 325 Mg Tablet PO Q6H PRN Pain 1-3 Calcitriol 0.25 mcg 07/04/22 09:00 07/07/22 09:20 Calcitriol 0.25 Mcg Capsule PO 0.25 mcg DAILY ROSS Administration Calcium Carbonate 500 mg 07/03/22 21:37 Calcium Carbonate (Tums) 500 Mg (200 Mg Elemental) PO DAILY PRN Acid Reflux Dextrose 12.5 gm 07/03/22 21:28 Dextrose 50% 25 Gm/50 Ml Syringe IV PUSH PRN PRN Hypoglycemia Protocol Fenofibrate 145 mg 07/04/22 09:00 07/08/22 09:53 Fenofibrate Nanocrystallized 145 Mg Tablet PO 145 mg DAILY ROSS Administration Finasteride 5 mg 07/05/22 12:45 07/08/22 09:54 Finasteride 5 Mg Tablet PO 5 mg QAM ROSS Administration Fish Oil 1 gm 07/04/22 09:00 07/08/22 09:55 [place] 3 Polyunsat Fatty Acids 1 Gm Cap PO 1 gm DAILY ROSS Administration Glucagon 1 mg 07/03/22 21:28 Glucagon For
[2022-07-08] MEDS: calcitrioL 0.25 MCG CAPSULE PO (10:12)
[2022-07-08 11:38] LABS: Glucose Point of Care 257 mg/dl (65-105)
--- NOTE | 2022-07-08 11:40 | PC.NURSE ---
On 07/08/22, the student, [Lilli Klein], provided care and completed [facility] documentation on this patient. I have reviewed the student's documentation and agree with the findings.
[2022-07-08] MEDS: INSULIN ASPART (*BKC) 100 UNITS/ML SUB-Q (12:20)
[2022-07-08] MEDS: traMADol HCL (*CRX) 50 MG TABLET PO (12:21)
[2022-07-08 12:47] LABS: Glucose Point of Care 222 mg/dl (65-105)
--- NOTE | 2022-07-08 14:18 | P.DS_ITS ---
DS: Admitting Diagnosis Discharge Date 07/08/2022 Admitting Diagnosis acute on chronic kidney failure DS: Discharge Diagnosis Discharge Diagnosis (1) Acute on chronic renal failure: Code(s): N17.9 - Acute kidney failure, unspecified; N18.9 - Chronic kidney disease, unspecified Status: Acute Assessment and Plan: Patient with history of CKD stage 5 * BUN/Cr upon arrival was 138/4.00 * Renal function improved throughout admission nearly back to baseline * Seen in consultation by nephrology * Renal ultrasound revealed normal kidneys without hydronephrosis * Hemodialysis has been considered but patient is hesitant, unsure if he is agreeable to do such. He will follow up with his primary stockroom supervisor to consider this as an outpatient (2) Transaminitis: Code(s): R74.01 - Elevation of levels of liver transaminase levels Status: Acute Assessment and Plan: AST/ALT 214/126 alk phos 161 on admission * LFTs trending down * Hep panel negative * RUQ ultrasound nonspecific small amount of perihepatic ascites otherwise normal * Overall significant improvement, recheck in 1 week to assess for resolution (3) Elevated creatine kinase: Code(s): R74.8 - Abnormal levels of other serum enzymes Status: Acute Assessment and Plan: CK upon admission 801 * improved following appropriate IV hydration * may partly explain elevated LFTs which improved (4) Heart failure with reduced ejection fraction: Code(s): I50.20 - Unspecified systolic (congestive) heart failure Status: Acute Assessment and Plan: Chronic diastolic heart failure * Echo completed this admission with severely reduced EF of less than 15% * Patient was seen in consultation by Cardiology * LHC and ICD deferred given patients comorbid conditions and DNR status. Pt states he would not wish to undergo any further testing * Follow up with his primary ax survey worker (Dr. Millard in [place]) * monitor volume status. Patient appears euvolemic * continue metoprolol 25 mg daily * furosemide on hold due to renal function. Patient is chronically dehydrated due to poor p.o. intake and continue diuresis would only exacerbate this * Entresto recommended per cardiology however cannot initiate at this time due to renal function. 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 Hypoglycemic protocol was implemented blood sugars improved * Lantus was decreased to 10 units daily * Blood sugar
--- NOTE | 2022-07-08 14:18 | PM.DS ---
DS: Admitting Diagnosis Discharge Date 07/08/2022 Admitting Diagnosis acute on chronic kidney failure DS: Discharge Diagnosis Discharge Diagnosis (1) Acute on chronic renal failure: Code(s): N17.9 - Acute kidney failure, unspecified; N18.9 - Chronic kidney disease, unspecified Status: Acute Assessment and Plan: Patient with history of CKD stage 5 BUN/Cr upon arrival was 138/4.00 Renal function improved throughout admission nearly back to baseline Seen in consultation by nephrology Renal ultrasound revealed normal kidneys without hydronephrosis Hemodialysis has been considered but patient is hesitant, unsure if he is agreeable to do such. He will follow up with his primary vitreo retinal surgeon to consider this as an outpatient (2) Transaminitis: Code(s): R74.01 - Elevation of levels of liver transaminase levels Status: Acute Assessment and Plan: AST/ALT 214/126 alk phos 161 on admission LFTs trending down Hep panel negative RUQ ultrasound nonspecific small amount of perihepatic ascites otherwise normal Overall significant improvement, recheck in 1 week to assess for resolution (3) Elevated creatine kinase: Code(s): R74.8 - Abnormal levels of other serum enzymes Status: Acute Assessment and Plan: CK upon admission 801 improved following appropriate IV hydration may partly explain elevated LFTs which improved (4) Heart failure with reduced ejection fraction: Code(s): I50.20 - Unspecified systolic (congestive) heart failure Status: Acute Assessment and Plan: Chronic diastolic heart failure Echo completed this admission with severely reduced EF of less than 15% Patient was seen in consultation by Cardiology [facility] and ICD deferred given patients comorbid conditions and DNR status. Pt states he would not wish to undergo any further testing Follow up with his primary admitting supervisor (Dr. Millard in [place]) monitor volume status. Patient appears euvolemic continue metoprolol 25 mg daily furosemide on hold due to renal function. Patient is chronically dehydrated due to poor p.o. intake and continue diuresis would only exacerbate this Entresto recommended per cardiology however cannot initiate at this time due to renal function. 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 Hypoglycemic protocol was implemented blood sugars improved Lantus was decreased to 10 units daily Blood sugars will be monitored and nursing facility with hypoglycemic protocol implemented DS: Summary Hospital Course Hospital Course: date of admission: 07/03/2022 date of discharge: 07/08/2022 Patricio Torres is a 77-year-old male with history of stage IV CKD, hypertension, diabetes, TIA, and CAD who presented to the emergency department on 07/03/2022 after having outpatient labs which showed elevation in his BUN and cre
[2022-07-09 14:58] LABS: Hepatitis B Core Ab Total Nonreactive (Nonreactive)
== END 2022-07-08 16:23 | DRG 683 ==
LOC: ANHED 14:19 → ANH2MED 15:13
PROVIDERS: Internal Medicine Nephrology; Nurse Practitioner; Physician Assistant; Admitting Provider Student in an Organized Health Care Education/Training Program; Emergency Provider Emergency Medicine; PCP Internal Medicine; Visit Provider Physician Assistant
DX: N17.9 Acute kidney failure, unspecified (principal); I13.11 Hypertensive heart and chronic kidney disease without heart failure, with stage 5 chronic kidney disease, or end stage renal disease; I50.20 Unspecified systolic (congestive) heart failure; I50.32 Chronic diastolic (congestive) heart failure; I25.810 Atherosclerosis of coronary artery bypass graft(s) without angina pectoris; N18.5 Chronic kidney disease, stage 5; R74.01 Elevation of levels of liver transaminase levels; R74.8 Abnormal levels of other serum enzymes; R53.1 Weakness; E86.0 Dehydration; E11.22 Type 2 diabetes mellitus with diabetic chronic kidney disease; Z79.4 Long term (current) use of insulin; E11.649 Type 2 diabetes mellitus with hypoglycemia without coma; Z20.822 Contact with and (suspected) exposure to COVID-19; Z66 Do not resuscitate; Z88.0 Allergy status to penicillin
CPT/HCPCS: 36415; 70450; 70551; 71046; 72125; 74176; 76705; 76775; 80048; 80053; 80069; 80074; 80307; 81001; 82274; 82550; 82570; 82607; 82728; 82746; 82948; 83036; 83540; 83550; 83615; 83690; 83735; 83880; 84156; 84300; 84443; 84466; 84540; 85025; 85027; 85610; 86140; 86704; 86705; 86706; 86709; 86803; 87340; 87637; 93005; 96360; 96361; 96365; 96366; 97161; 97165; 97530; 97535; 99284; 99285; A9270; C8929; G0378; J1815; J2060; J3480; J7030; J7040; J7120; Q9957

== ENCOUNTER 2022-07-21 09:15 | Inpatient (IN) | payer OTHER, MEDICAID, SELFPAY ==
[2022-07-21] VITALS (28 sets, daily range): BP systolic 118–150; BP diastolic 71–92; PULSE 62–81; RESP 13–27; TEMP 36.4–36.8; O2SAT 93–100; BMI 25.9
--- NOTE | ~2022-07-21 | US_ITS ---
EXAMINATION: US venous doppler [facility] DATE: 07/21/2022 21:56 INDICATION: Bilateral lower limb edema TECHNIQUE: Carias scale images without and with compression and Doppler images of the bilateral lower e xtremity veins were obtained. COMPARISON: None FINDINGS: The right common femoral vein, profunda femoral vein, femoral vein, popliteal vein, peroneal trunk, p osterior tibial veins, and greater saphenous vein are patent. The left common femoral vein, profunda femoral vein, femoral vein, popliteal vein, peroneal trunk, po sterior tibial veins, and greater saphenous vein are patent. IMPRESSION: 1. Patent bilateral lower extremity veins. No evidence of deep venous thrombosis. Reviewed, dictated and finalized at location F. IMPRESSION: 1. Patent bilateral lower extremity veins. No evidence of deep venous thrombosi s.
--- NOTE | ~2022-07-21 | XR_ITS ---
Portable chest x-ray Comparison: 07/06/2022 Clinical History: Weakness, Covid 19 positive Findings: There is probable minimal interstitial prominence throughout the lungs and mild bibasilar haziness. Questionable minimal left pleural effusion. Cardiomediastinal silhouette is stable. Bones and soft tissues are unremarkable. Impression: Probable minimal bibasilar haziness and mild interstitial prominence. Correlate for chronic interstit ial disease or possibly atypical infection. Possible minimal left pleural effusion. Reviewed, dictated and finalized at location . Impression: Probable minimal bibasilar haziness and mild interstitial prominence. Correlate for chronic interstitial disease or possibly atypical infection. Possible minimal left pleural effusion.
--- NOTE | 2022-07-21 09:19 | ECG_ITS ---
Measurements Intervals [place] Rate: 83 P: 63 [place]: 221 QRS: -57 QRSD: 140 T: 95 QT: 423 QTc: 499 Interpretive Statements SINUS RHYTHM WITH FIRST DEGREE AV BLOCK VENTRICULAR PREMATURE COMPLEXES LEFT BUNDLE BRANCH BLOCK BASELINE ARTIFACT- I, II, III, AVR, AVL, AVF, V6 ABNORMAL ECG COMPARED TO ECG 07/04/2022 10:40:25 FIRST DEGREE AV BLOCK NOW PRESENT Electronically Signed On 07-21-2022 9:33:04 CDT by Wilder Wesley D.O.
--- NOTE | 2022-07-21 09:44 | ED.WEAKNESS ---
HPI - Weakness General Chief complaint: Weakness Stated complaint: Weakness, COVID + Time Seen by Provider: 07/21/22 09:38 History of Present Illness HPI Narrative: 77-year-old male presents to the ER today from a local intermediate facility for evaluation of weakness. He is COVID-positive. Patient is very quiet but does answer questions. He denies having any pain. He denies feeling short of breath. He does endorse being very tired and weak. He denies having any cough. He does have a lot of swelling in his legs with blisters. He has not had any vomiting or diarrhea. Related Data Home Medications Medication Instructions Recorded Confirmed acetaminophen 500 mg tablet 1,000 mg PO QID PRN Pain 09/19/21 07/03/22 aspirin 81 mg tablet 81 mg PO DAILY 09/19/21 07/03/22 atorvastatin 40 mg tablet 40 mg PO HS 09/19/21 07/03/22 fenofibrate 120 mg tablet 134 mg PO DAILY 09/19/21 07/03/22 furosemide 40 mg tablet 40 mg PO BID 09/19/21 07/03/22 metoprolol succinate 25 mg 25 mg PO DAILY 09/19/21 07/03/22 tablet,extended release 24 hr omega 8-dpr-rqv-fish oil 1,200 mg 1,200 cap PO DAILY 09/19/21 07/03/22 (144 mg-216 mg) capsule (Fish Oil) pantoprazole 40 mg tablet,delayed 40 mg PO BID 09/19/21 07/03/22 release polysaccharide iron complex 150 mg 150 mg PO BID 09/19/21 07/03/22 iron capsule (iFerex 150) tamsulosin 0.4 mg capsule 0.4 mg PO HS 09/19/21 07/03/22 Tums 500 500 mg PO DAILY PRN Acid Reflux 07/03/22 07/03/22 allopurinol 100 mg tablet 100 mg PO DAILY 07/03/22 07/03/22 calcitriol 0.25 mcg capsule 0.25 mcg PO DAILY 07/03/22 07/03/22 insulin aspart U-100 100 unit/mL 1 sliding scale dose subcut 07/03/22 07/03/22 subcutaneous solution (Novolog USEASDIRECTD U-100 Insulin aspart) polyethylene glycol 3350 17 gram 17 g PO DAILY PRN Constipation 07/03/22 07/03/22 oral powder packet (Miralax) senna 374 mg tablet 374 mg PO DAILY PRN Constipation 07/03/22 07/03/22 Allergies Allergy/AdvReac Type Severity Reaction Status Date / Time oxytetracycline Allergy Other Verified 07/21/22 09:32 [From Terramycin] Penicillins Allergy Other Verified 07/21/22 09:32 Review of Systems Review of Systems: CONSTITUTIONAL: Denies fever, chills ENT: Denies rhinorrhea, congestion, sore throat, or otalgia. CARDIOVASCULAR: Denies chest pain, palpitations, or edema. RESPIRATORY: Denies cough or dyspnea. GASTROINTESTINAL: Denies abdominal pain, nausea, vomiting, or diarrhea. GENITOURINARY: Denies dysuria or hematuria. SKIN: blisters to both legs MUSCULOSKELETAL: Denies back pain, joint pain, or myalgia. NEUROLOGIC: Denies headache, numbness, dizziness. Reports generalized weakness. [facility] Past Medical History Medical History Chronic kidney disease, stage 4 (severe) Chronic pain syndrome Coronary artery disease Heart failure with reduced ejection fraction EF reportedly as low as 45 to 50%. Hypertension Insulin dependent type 2 diabetes mellitus Transient ischemic attack Upper GI bleed Surgical History Surgical History History of coronary artery bypass graft History of coronary artery stent placement History of esophagogastroduodenoscopy (EGD) Family History Family History Other Diabetes mellitus Hypertension Social History Social History Social History: Surrogate medical decision maker: Caty Staley, daughter. Code status: Full code. Smoking status: Never smoker Alcohol intake: never Substance use: never Lack of Transportation: YES Lack of Food: Never True Current Housing: I Have Housing Concerned About Future Housing: No Difficulty Paying Gas/Electric Bills: No Difficulty Paying for Meds: No Currently Unemployed: No Education: Bachelor's Degree Difficulty w/ Childcare
[2022-07-21 10:00] LABS: Basophils Absolute Auto 0.1 K/mm3 (0.0-0.1); Basophils Percent Auto 1.1 % (0.2-1.2); Eosinophils Absolute Auto 0.2 K/mm3 (0-0.3); Hematocrit 36.3 % (42.0-52.0); Hemoglobin 11.2 g/dL (14.0-18.0); Immature Granulocyte Absolute 0.02 K/mm3 (0.00-0.031); Immature Granulocyte Percent A 0.4 % (0-0.5); Lymphocytes Percent Auto 26.5 % (18.3-44.2); Mean Corpuscular HGB Conc 30.9 g/dl (32-36); Mean Corpuscular Hemoglobin 30.2 pg (26-34); Mean Corpuscular Volume 97.8 fl (80-100); Monocytes Absolute Auto 0.8 K/mm3 (0.1-0.6); Monocytes Percent Auto 14.1 % (2.6-8.5); Neutrophils Absolute Auto 3.1 K/mm3 (1.3-6.7); Neutrophils Percent Auto 54.9 % (45.5-73.1); Platelet Count Result 154 k/mm3 (150-375); Red Blood Count 3.71 M/mm3 (4.6-6.20); Red Cell Distribution Width 18.9 % (11.5-14.5); White Blood Count 5.7 K/mm3 (4.5-10.0)
[2022-07-21 10:11] LABS: INR 1.2; Lactic Acid Reflex 1.1 mmol/L (0.7-2.0); Prothrombin Time 14.9 Seconds (11.1-14.7)
[2022-07-21 10:12] LABS: Partial Thromboplastin Time 21.9 SECONDS (22.3-36.8)
[2022-07-21 10:15] LABS: Alanine Aminotransferase 37 U/L (6-50); Albumin Level 3.6 g/dL (3.5-5.1); Alkaline Phosphatase 110 U/L (38-126); Anion Gap 9 mmol/L (8-16); Aspartate Amino Transferase 53 U/L (17-59); Bilirubin,Total 0.9 mg/dL (0.2-1.3); Blood Urea Nitrogen 97 mg/dL (9-20); CRP 1.3 mg/dL (<1.0); Calcium 9.3 mg/dL (8.4-10.2); Carbon Dioxide 23 mmol/L (22-30); Chloride 113 mmol/L (98-107); Estimated CRCL calculation 18 ml/min; Estimated Glomerular Filt Rate 19; Glucose 126 mg/dL (65-110); Magnesium 1.9 mg/dL (1.6-2.3); Potassium 3.8 mmol/L (3.4-5.0); Sodium 145 mmol/L (137-145)
[2022-07-21 10:38] LABS: NT Pro B Type Natriuretic Pept > 30000 pg/mL (19.9-100); Troponin I 0.353 ng/mL (0.000-0.034)
[2022-07-21] MEDS: SODIUM CHLORIDE 0.9% IV 1,000 ML 100 ML IV CONT (10:47)
[2022-07-21] MEDS: SODIUM CHLORIDE 0.9% IV 500 ML 999 ML IV CONT (10:47)
[2022-07-21] MEDS: traMADol HCL (*CRX) 50 MG TABLET PO ×3 (11:57→23:50)
[2022-07-21 12:18] LABS: Appearance Urine Clear (Clear); Bacteria Urine None Seen /hpf; Bilirubin Urine Negative (Negative); Blood Urine Negative (Negative); Color Urine Yellow (Yellow); Glucose Urine UA Negative (Negative); Ketones Urine Negative (Negative); Leukocyte Esterase Ur Negative LEU/UL (Negative); Nitrate Urine Negative (Negative); Non Pathogenic Casts 0-2; Protein Urine 2+ mg/dL (Negative); RBC Urine 0-2 /hpf (0-2); Specific Grav Ur 1.015 (1.001-1.035); Squamous Epithelial Cell Urine None seen /hpf (Few); Urobilinogen Urine 0.2 mg/dL (<2.0); WBC Urine 0-5 /hpf
[2022-07-21 12:22] LABS: Add Urine Microscopic? YES
[2022-07-21 13:22] LABS: Influenza A QL RT-PCR Negative (Negative); Influenza B QL RT-PCR Negative (Negative); SARS-CoV-2 RNA PCR Negative
--- NOTE | 2022-07-21 14:30 | PM.IMHP ---
H&P: HPI History of Present Illness Date/Time: 07/21/22 14:30 Chief Complaint: Weakness. Narrative: This is a 77-year-old male with chronic kidney disease, hypertension, coronary artery disease, and diabetes who presented to the emergency department via EMS from a local assisted living facility for evaluation of weakness. Patient provides the following history. He is known to myself and the hospitalist service from recent admission on 07/03/2022 in which he was admitted for acute on chronic renal failure after presenting with weakness and dizziness. He was judiciously hydrated with improvement in his renal function. He was seen by Nephrology and there were discussions of starting dialysis in the near future however the patient is hesitant and wished to discuss with his primary caramel coloring operator as an outpatient. He was discharged on 07/08/2022 and he had been doing okay up until the last for 5 days when he developed increasing lower extremity edema, now with blisters forming, weakness, and generalized malaise. He lives in assisted living and several people have been sick; the patient reports passing positive for COVID on 07/17/2022. He has not had a fever to his knowledge. He denies headache, sinus congestion, sore throat, and cough. He has had some nausea but that is improving and in fact he is hungry at this time. He denies vomiting and diarrhea. He has not had chest pain or shortness of breath. Vital signs have been stable since arrival. Pertinent labs include a WBC count of 5.7, stable anemia, normal electrolytes, BUN 97, creatinine 3.20, lactic acid 1.1, CRP 1.3, pro BNP, troponin 0.353. EKG shows sinus rhythm with first-degree AV block and PVCs. Left bundle branch is noted but that is old. Patient again denies having any chest pain. He is being admitted in this setting for observation and diuresis given significant edema. Review of Systems Review of Systems: Twelve systems were reviewed and are negative except for as per HPI. [facility] Past Medical History Medical History Chronic kidney disease, stage 4 (severe) Chronic pain syndrome Coronary artery disease Heart failure with reduced ejection fraction EF reportedly as low as 45 to 50%. Hypertension Insulin dependent type 2 diabetes mellitus Transient ischemic attack Upper GI bleed Surgical History Surgical History History of coronary artery bypass graft History of coronary artery stent placement History of esophagogastroduodenoscopy (EGD) Family History Family History Other Diabetes mellitus Hypertension Social History Social History Social History: Surrogate medical decision maker: Caty Staley, daughter. Code status: Full code. Smoking status: Never smoker Alcohol intake: never Substance use: never Lack of Transportation: No Lack of Food: Never True Current Housing: I Have Housing Concerned About Future Housing: No Difficulty Paying Gas/Electric Bills: No Difficulty Paying for Meds: No Currently Unemployed: No Education: Bachelor's Degree Difficulty w/ Childcare or Family Care: No Additional living arrangements comments: Currently in assisted living. Spiritual care concerns: No Meds Home Medications and Allergies Home Medications Medication Instructions Recorded Confirmed Type aspirin 81 mg tablet 81 mg PO DAILY 09/19/21 07/21/22 History atorvastatin 40 mg tablet 40 mg PO HS 09/19/21 07/21/22 History metoprolol succinate 25 mg 25 mg PO DAILY 09/19/21 07/21/22 History tablet,extended release 24 hr omega 8-vtv-rgu-fish oil 1,200 mg 1,200 cap PO DAILY 09/19/21 07/21/22 History (144 mg-216 mg) capsule (Fish Oil) pantoprazole 40 mg tablet,delayed 40 mg PO BIDWM 09/19/21 07/21/22 History release
[2022-07-21 15:33] LABS: Troponin I 0.311 ng/mL (0.000-0.034)
[2022-07-21 16:00] LABS: Glucose Point of Care 133 mg/dl (65-105)
--- NOTE | 2022-07-21 16:08 | ADMGEN ---
This patient, Patricio Torres, was admitted to IMU Room 214-01. Patient/family oriented to hospital policies and general routines including ID bracelet, bed and alarms, visiting hours, pain management, procedures, bathroom and other care routines, personal items, smoking policy, room service/diet, and visiting hours. Information on how to activate the Rapid Response Team has been discussed. Patient/Family are encouraged to report perceived risks to care and to ask questions if they do not understand what they are told or what they should do.
[2022-07-21] MEDS: ACETAMINOPHEN 500 MG TABLET PO ×2 (18:13→23:50)
[2022-07-21 19:53] LABS: Glucose Point of Care 180 mg/dl (65-105)
[2022-07-21] MEDS: FUROSEMIDE INJ 40 MG/4 ML VIAL IV PUSH (21:06)
[2022-07-22] VITALS (10 sets, daily range): BP systolic 126–152; BP diastolic 73–79; PULSE 59–89; RESP 18–20; TEMP 36.1–36.4; O2SAT 96–100
[2022-07-22 04:29] LABS: Hematocrit 34.2 % (42.0-52.0); Hemoglobin 10.6 g/dL (14.0-18.0); Mean Corpuscular Hemoglobin 29.1 pg (26-34); Mean Platelet Volume 11.9 fl (7.4-10.4); Platelet Count Result 179 k/mm3 (150-375); Red Blood Count 3.64 M/mm3 (4.6-6.20); Red Cell Distribution Width 18.9 % (11.5-14.5); White Blood Count 5.4 K/mm3 (4.5-10.0)
[2022-07-22] MEDS: ACETAMINOPHEN 500 MG TABLET PO ×3 (05:26→18:21)
[2022-07-22] MEDS: traMADol HCL (*CRX) 50 MG TABLET PO ×4 (05:26→18:21)
[2022-07-22 06:48] LABS: Alanine Aminotransferase 34 U/L (6-50); Albumin Level 3.8 g/dL (3.5-5.1); Alkaline Phosphatase 112 U/L (38-126); Anion Gap 11 mmol/L (8-16); Aspartate Amino Transferase 54 U/L (17-59); Bilirubin,Total 0.8 mg/dL (0.2-1.3); Blood Urea Nitrogen 95 mg/dL (9-20); Calcium 9.4 mg/dL (8.4-10.2); Carbon Dioxide 21 mmol/L (22-30); Chloride 113 mmol/L (98-107); Estimated CRCL calculation 17 ml/min; Estimated Glomerular Filt Rate 20; Glucose 154 mg/dL (65-110); Magnesium 1.8 mg/dL (1.6-2.3); Potassium 3.4 mmol/L (3.4-5.0); Sodium 145 mmol/L (137-145)
[2022-07-22] MEDS: POLYSACCHARIDE IRON COMPLEX 150 MG CAPSULE PO ×2 (08:26→16:33)
[2022-07-22] MEDS: FENOFIBRATE NANOCRYSTALLIZED 145 MG TABLET PO (08:26)
[2022-07-22] MEDS: METOPROLOL SUCCINATE EXT REL 25 MG TABCR PO (08:26)
[2022-07-22] MEDS: FUROSEMIDE INJ 40 MG/4 ML VIAL IV PUSH ×2 (08:26→16:34)
[2022-07-22] MEDS: INSULIN ASPART (*BKC) 100 UNITS/ML SUB-Q ×2 (08:27→11:53)
[2022-07-22] MEDS: OMEGA 3 POLYUNSAT FATTY ACIDS 1 GM CAP PO (08:27)
[2022-07-22] MEDS: calcitrioL 0.25 MCG CAPSULE PO (08:27)
[2022-07-22] MEDS: INSULIN GLARGINE (*BKC) 100 UNITS/ML 10 UNITS SUB-Q (08:27)
[2022-07-22] MEDS: ASPIRIN 81 MG CHEWABLE TABLET PO (08:27)
[2022-07-22] MEDS: allopurinoL 100 MG TABLET PO (08:27)
[2022-07-22] MEDS: PANTOPRAZOLE 40 MG TABLET PO ×2 (08:27→16:34)
[2022-07-22 08:37] LABS: Glucose Point of Care 209 mg/dl (65-105)
--- NOTE | 2022-07-22 09:51 | PM.CNNEP ---
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 Plan: - Gustafson catheter to be placed -We will see how renal function does once Gustafson catheter has been placed and how we manage the fluids -it may well be that he isn't retaining urine which may have complicated management of his fluid status but is very poor heart and his advanced renal failure -daily weights -cells restricted diet, fluid restriction -Maintain diuretics -will follow History of Present Illness Reason for Consult Consult date: 07/22/22 Chief Complaint Chief complaint: Fluid Overload/COVID/Elevated Trop/Acute on Chroni History of Present Illness Narrative: Chief complaint asked to see for renal failure and fluid overload, consideration for hemodialysis History of presenting illness: 77-year-old male known to me from the office, known chronic kidney disease stage IV bordering on stage V with history of fluid problems. He has a profoundly prerenal azotemic picture most of the time due to problems with the diuresis and the presence of fluid and congestive heart failure. Recent echocardiogram shows severe depression of the left ventricular systolic function with ejection fraction less than 15%, he has severe pulmonary hypertension as well. Once again presents with weakness and fluid overload. Blood pressure is sustained at 143/82 at admission. He has been initiated on furosemide 40 mg IV push twice a day. He has good urinary output recorded at 1500 mL, however symptom in a positive fluid balance. Patient's underlying problems are diabetes mellitus, hypertension, CHF, CABG Since coming into the hospital the patient has been noted to have urination every hour or so and small volumes, but this was also dropping off, therefore bladder scan was done and he is found to be retaining urine, he has 500 mL of urine in his bladder. A Gustafson catheter is to be placed. Patient prior to coming in states that he was eating poorly. He states that he was intermittently confused. Denies any nausea vomiting. He denies any lightheadedness or dizziness or feeling of faintness. Review of Systems Review of Systems: As per history of presenting illness, rest were negative PMFSH Past Medical History Medical History Chronic kidney disease, stage 4 (severe) Chronic pain syndrome Coronary artery disease Heart failure with reduced ejection fraction EF reportedly as low as 45 to 50%. Hypertension Insulin dependent type 2 diabetes mellitus Transient ischemic attack Upper GI bleed Surgical History Surgical History History of coronary artery bypass graft History of coronary artery stent placement History of esophagogastroduodenoscopy (EGD) Family History Family History Other Diabetes mellitus Hypertension Social History Social History Social History: Surrogate medical decision maker: Caty Staley, daughter. Code status: Full code. Smoking status: Never smoker Alcohol intake: never Substance use: never Lack of Transportation: No Lack of Food: Never True Current Housing: I Have Housing Concerned About Future Housing: No Difficulty Paying Gas/Electric Bills: No Difficulty Paying for Meds: No Currently Unemployed: No Education: Bachelor's Degree Difficulty w
[2022-07-22] MEDS: ACETAMINOPHEN 325 MG TABLET 650 MG PO ×2 (10:35→16:33)
[2022-07-22] MEDS: POTASSIUM CHLORIDE 20 MEQ TABLET.ER 40 MEQ PO (10:35)
[2022-07-22 11:44] LABS: Glucose Point of Care 202 mg/dl (65-105)
--- NOTE | 2022-07-22 12:58 | PM.IMPN ---
Progress Note: A&P Assessment and Plan (1) Volume overload: Code(s): E87.70 - Fluid overload, unspecified Status: Acute Assessment and Plan: Daily weight, strict intake output. Place Gustafson Continue IV Lasix. Nephrology consulted (2) Acute on chronic kidney failure: Code(s): N17.9 - Acute kidney failure, unspecified; N18.9 - Chronic kidney disease, unspecified Status: Acute Assessment and Plan: Monitor BMP (3) Dyslipidemia: Code(s): E78.5 - Hyperlipidemia, unspecified Status: Acute Assessment and Plan: Continue home medication (4) CAD (coronary artery disease), autologous vein bypass graft: Code(s): I25.810 - Atherosclerosis of coronary artery bypass graft(s) without angina pectoris Status: Acute Assessment and Plan: No chest pain. Continue aspirin, beta-jensen Subjective Date/time seen: 07/22/22 12:58 No new issues Review of Systems Review of Systems: As per history of presenting illness, rest were negative Exam Const: General: cooperative and ill appearing HENMT: Head: normal to inspection, normocephalic and atraumatic Eyes: General: appearance normal, both eyes and all related structures Conjunctivae: conjunctivae normal Sclera: sclerae normal Neck: Neck: no lymphadenopathy noted and no JVD Resp: Effort & Inspection: normal respiratory effort Auscultation: clear to auscultation bilaterally Cardio: Jugular venous distension: no JVD Rate: regular rate Rhythm: regular rhythm GI: Inspection: normal to inspection GI Palp: No abdominal tenderness and Yes No hepatosplenomegaly present : Penis: Yes normal penis Other: Gustafson catheter be placed Urinary Catheter: Urinary Catheter: other ( to be placed today) Back/Spine/Pelvis: Back: No back tenderness Other: and back edema noted Skin: General skin exam: no jaundice and other ( pale) Neuro: General: patient oriented x3 and moves all extremities Extrem: General: normal to inspection, edema and other ( has blister left thigh, as superficial ulcers left lower extremity) Other: has bilateral edema, including thighs, left more than right Psych: Appearance: grossly normal Mental Status: mental status grossly normal Other: patient is very hard of hearing Objective Data Vital Signs Vital Signs: Vital Signs - 24 hr 07/21/22 14:24 07/21/22 15:09 07/21/22 15:26 Temperature Pulse Rate 62 66 Respiratory Rate 16 20 Blood Pressure 118/74 128/81 Pulse Oximetry 99 98 99 Oxygen Delivery Room Air 07/21/22 16:00 07/21/22 15:45 07/21/22 16:00 Temperature 97.7 F Pulse Rate 66 65 Respiratory Rate 18 Blood Pressure 142/81 H Pulse Oximetry 95 100 Oxygen Delivery Room Air 07/21/22 18:00 07/21/22 19:55 07/21/22 20:00 Temperature 97.6 F Pulse Rate 69 72 Respiratory Rate 20 Blood Pressure 138/79 Pulse Oximetry 96 95 Oxygen Delivery Room Air 07/21/22 20:00 07/21/22 23:26 07/21/22 23:36 Temperature 97.9 F Pulse Rate 66 62 Respiratory Rate 20 Blood Pressure 131/74 Pulse Oximetry 96 95 Oxygen Delivery Room Air 07/22/22 00:00 07/22/22 03:46 07/22/22 04:00 Temperature 97.6 F Pulse Rate 71 75 Respiratory Rate 18 Blood Pressure 136/79 Pulse Oximetry 96 97 Oxygen Delivery Room Air 07/22/22 04:00 07/22/22 05:21 07/22/22 08:26 Temperature Pulse Rate 67 67 78 Respiratory Rate Blood Pressure Pulse Oximetry Oxygen Delivery 07/22/22 08:00 07/22/22 08:00 07/22/22 08:00 Temperature 97.4 F L Pulse Rate 77 89 Respiratory Rate 20 Blood Pressure 152/73 H Pulse Oximetry 98 Oxygen Delivery Room Air 07/22/22 10:00 07/22/22 12:00 Temperature Pulse Rate 80 73 Respiratory Rate Blood Pressure Pulse Oximetry Oxygen Delivery Intake/Output Intake/Output: Intake & Output 07/19/22 07/20/22 07/21/22 07/22/22 23:59 23:59 23:59 23:59 Intake Total 1
[2022-07-22] MEDS: BETAMETHASONE/CLOTRIMAZOLE CR 15 GM TUBE 1 APPLIC TOPICAL ×2 (14:04→20:11)
[2022-07-22 16:51] LABS: Glucose Point of Care 140 mg/dl (65-105)
[2022-07-22 19:38] LABS: Glucose Point of Care 192 mg/dl (65-105)
[2022-07-22] MEDS: TAMSULOSIN HCL 0.4 MG CAPSULE PO (20:11)
--- NOTE | 2022-07-22 23:20 | PC.NURSE ---
Patient received to room 250 by bed, all belongings transferred with patient.
--- NOTE | 2022-07-22 23:31 | PC.NURSE ---
[id number] Report called to DONY Coronado on Med.
[2022-07-23] VITALS (10 sets, daily range): BP systolic 133–139; BP diastolic 75–83; PULSE 67–75; RESP 17–18; TEMP 36.4–36.7; O2SAT 95–100
[2022-07-23] MEDS: traMADol HCL (*CRX) 50 MG TABLET PO ×4 (00:15→17:19)
[2022-07-23] MEDS: ACETAMINOPHEN 500 MG TABLET PO ×4 (00:15→17:19)
[2022-07-23] MEDS: POTASSIUM CHLORIDE 20 MEQ TABLET.ER 40 MEQ PO (08:06)
[2022-07-23] MEDS: FENOFIBRATE NANOCRYSTALLIZED 145 MG TABLET PO (08:06)
[2022-07-23] MEDS: ASPIRIN 81 MG CHEWABLE TABLET PO (08:06)
[2022-07-23] MEDS: allopurinoL 100 MG TABLET PO (08:06)
[2022-07-23] MEDS: calcitrioL 0.25 MCG CAPSULE PO (08:06)
[2022-07-23] MEDS: METOPROLOL SUCCINATE EXT REL 25 MG TABCR PO (08:06)
[2022-07-23] MEDS: OMEGA 3 POLYUNSAT FATTY ACIDS 1 GM CAP PO (08:06)
[2022-07-23] MEDS: POLYSACCHARIDE IRON COMPLEX 150 MG CAPSULE PO ×2 (08:07→16:45)
[2022-07-23] MEDS: FUROSEMIDE INJ 40 MG/4 ML VIAL IV PUSH (08:07)
[2022-07-23] MEDS: BETAMETHASONE/CLOTRIMAZOLE CR 15 GM TUBE 1 APPLIC TOPICAL ×2 (08:07→20:31)
[2022-07-23] MEDS: PANTOPRAZOLE 40 MG TABLET PO ×2 (08:07→16:46)
[2022-07-23] MEDS: INSULIN GLARGINE (*BKC) 100 UNITS/ML 10 UNITS SUB-Q (08:15)
[2022-07-23 09:01] LABS: Glucose Point of Care 152 mg/dl (65-105)
[2022-07-23 10:08] LABS: Anion Gap 11 mmol/L (8-16); Blood Urea Nitrogen 95 mg/dL (9-20); Calcium 9.5 mg/dL (8.4-10.2); Carbon Dioxide 25 mmol/L (22-30); Chloride 112 mmol/L (98-107); Estimated CRCL calculation 16 ml/min; Estimated Glomerular Filt Rate 19; Glucose 181 mg/dL (65-110); Potassium 4.3 mmol/L (3.4-5.0); Sodium 148 mmol/L (137-145)
--- NOTE | 2022-07-23 10:54 | PM.IMPN ---
Progress Note: A&P Assessment and Plan (1) Volume overload: Code(s): E87.70 - Fluid overload, unspecified Status: Acute Assessment and Plan: Daily weight, strict intake output. Place Gustafson Continue IV Lasix. Nephrology consulted (2) Acute on chronic kidney failure: Code(s): N17.9 - Acute kidney failure, unspecified; N18.9 - Chronic kidney disease, unspecified Status: Acute Assessment and Plan: Monitor BMP (3) Dyslipidemia: Code(s): E78.5 - Hyperlipidemia, unspecified Status: Acute Assessment and Plan: Continue home medication (4) CAD (coronary artery disease), autologous vein bypass graft: Code(s): I25.810 - Atherosclerosis of coronary artery bypass graft(s) without angina pectoris Status: Acute Assessment and Plan: No chest pain. Continue aspirin, beta-jensen Plan Pending placement Subjective Date/time seen: 07/23/22 10:54 No new issues overnight Review of Systems Review of Systems: As per history of presenting illness, rest were negative Exam Const: General: cooperative and ill appearing HENMT: Head: normal to inspection, normocephalic and atraumatic Eyes: General: appearance normal, both eyes and all related structures Conjunctivae: conjunctivae normal Sclera: sclerae normal Neck: Neck: no lymphadenopathy noted and no JVD Resp: Effort & Inspection: normal respiratory effort Auscultation: clear to auscultation bilaterally Cardio: Jugular venous distension: no JVD Rate: regular rate Rhythm: regular rhythm GI: Inspection: normal to inspection GI Palp: No abdominal tenderness and Yes No hepatosplenomegaly present : Penis: Yes normal penis Other: Gustafson catheter be placed Urinary Catheter: Urinary Catheter: other ( to be placed today) Back/Spine/Pelvis: Back: No back tenderness Other: and back edema noted Skin: General skin exam: no jaundice and other ( pale) Neuro: General: patient oriented x3 and moves all extremities Extrem: General: normal to inspection, edema and other ( has blister left thigh, as superficial ulcers left lower extremity) Other: has bilateral edema, including thighs, left more than right Psych: Appearance: grossly normal Mental Status: mental status grossly normal Other: patient is very hard of hearing Objective Data Vital Signs Vital Signs: Vital Signs - 24 hr 07/22/22 12:00 07/22/22 16:00 07/22/22 16:00 Temperature 97 F L Pulse Rate 73 59 L 66 Respiratory Rate 18 Blood Pressure 126/74 Pulse Oximetry 100 Oxygen Delivery 07/22/22 20:00 07/22/22 20:00 07/23/22 00:00 Temperature 98.1 F Pulse Rate 69 69 67 Respiratory Rate 18 18 Blood Pressure 134/77 Pulse Oximetry 100 96 Oxygen Delivery Room Air 07/23/22 05:17 07/23/22 00:00 07/23/22 04:00 Temperature 97.7 F Pulse Rate 75 74 73 Respiratory Rate 17 Blood Pressure 135/83 Pulse Oximetry 100 Oxygen Delivery 07/23/22 08:06 Temperature Pulse Rate 75 Respiratory Rate Blood Pressure Pulse Oximetry Oxygen Delivery Intake/Output Intake/Output: Intake & Output 07/20/22 07/21/22 07/22/22 07/23/22 23:59 23:59 23:59 23:59 Intake Total 1740 / 1740 1610 / 1610 490 / 490 Output Total 850 / 850 2100 / 2100 1700 / 1700 Balance 890 / 890 -490 / -490 -1210 / -1210 Meds/Results Medications: Active Medications Generic Name Dose Route Start Last Admin Trade Name Freq PRN Reason Stop Dose Admin Acetaminophen 500 mg 07/21/22 18:00 07/23/22 06:32 Acetaminophen 500 Mg Tablet PO 500 mg Q6HR ROSS Administration Acetaminophen 650 mg 07/21/22 20:01 07/22/22 16:33 Acetaminophen 325 Mg Tablet PO 650 mg Q6H PRN Administration Mild Pain (1-3) or Fever Allopurinol 100 mg 07/22/22 09:00 07/23/22 08:06 Allopurinol 100 Mg Tablet PO 100 mg DAILY ROSS Administration Aspirin 81 mg 07/22/22 09:00 07/23/22 08:06 Aspirin 81 Mg C
[2022-07-23 12:07] LABS: Glucose Point of Care 190 mg/dl (65-105)
--- NOTE | 2022-07-23 13:06 | PM.PNNEP ---
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 fluids today. Hypernatremia probably precipitated by diuresis post Gustafson placement within adequate oral free fluid intake - renal function is more or less stable, slight increase in creatinine is just reflective of slow transition of 3rd spaced fluids into the vascular system -d/w Dr Frazier Subjective Date/time seen: 07/23/22 13:06 Follow-up of renal failure issues Review of Systems Review of Systems: patient is sitting up in a chair, is feeling comfortable with the breathing, has bilateral lower extremity swelling, multiple superficial to the right leg and also blister left thigh. No shortness of breath at rest. Has a Gustafson catheter in place and is making urine. Exam Narrative: Well-developed, well-nourished, elderly male, vital signs as stated, JVD is hard to see, rhythm rate regular, no gallop, no rub, diminished breath sounds, two views: Soft nontender abdomen, edematous legs, no thigh edema, blister left thigh and scabs right leg noted, alert oriented x3, tremors Objective Data Vital Signs Vital Signs: Vital Signs - 24 hr 07/22/22 16:00 07/22/22 16:00 07/22/22 20:00 Temperature 36.1 C L Pulse Rate 59 L 66 69 Respiratory Rate 18 Blood Pressure 126/74 Pulse Oximetry 100 Oxygen Delivery 07/22/22 20:00 07/23/22 00:00 07/23/22 05:17 Temperature 36.7 C 36.5 C Pulse Rate 69 67 75 Respiratory Rate 18 18 17 Blood Pressure 134/77 135/83 Pulse Oximetry 100 96 100 Oxygen Delivery Room Air 07/23/22 00:00 07/23/22 04:00 07/23/22 08:06 Temperature Pulse Rate 74 73 75 Respiratory Rate Blood Pressure Pulse Oximetry Oxygen Delivery 07/23/22 10:42 07/23/22 08:00 07/23/22 08:00 Temperature Pulse Rate 68 Respiratory Rate Blood Pressure Pulse Oximetry Oxygen Delivery Room Air Room Air Intake/Output Intake/Output: Intake & Output 07/20/22 07/21/22 07/22/22 07/23/22 23:59 23:59 23:59 23:59 Intake Total 1740 1610 490 Output Total 850 2100 1700 Balance 504 -973 -4748 Meds/Results Medications: Active Medications Generic Name Dose Route Start Last Admin Trade Name Freq PRN Reason Stop Dose Admin Acetaminophen 500 mg 07/21/22 18:00 07/23/22 12:41 Acetaminophen 500 Mg Tablet PO 500 mg Q6HR ROSS Administration Acetaminophen 650 mg 07/21/22 20:01 07/22/22 16:33 Acetaminophen 325 Mg Tablet PO 650 mg Q6H PRN Administration Mild Pain (1-3) or Fever Allopurinol 100 mg 07/22/22 09:00 07/23/22 08:06 Allopurinol 100 Mg Tablet PO 100 mg DAILY ROSS Administration Aspirin 81 mg 07/22/22 09:00 07/23/22 08:06 Aspirin 81 Mg Chewable Tablet PO 81 mg DAILY ROSS Administration Calcitriol 0.25 mcg 07/22/22 09:00 07/23/22 08:06 Calcitriol 0.25 Mcg Capsule PO 0.25 mcg DAILY ROSS Administration Calcium Carbonate 500 mg 07/21/22 17:30 Calcium Carbonate (Tums) 500 Mg (200 Mg Elemental) PO DAILY PRN Indigestion Clotrimazole 1 applic 07/22/22 09:00 07/23/22 08:07 Betamethasone/Clotrimazole Cr 15 Gm Tube TOPICAL 1 applic Q12HR ROSS Administration Dextrose 12.5 gm 07/21/22 20:01 Dextrose 50% 25 Gm/50 Ml
--- NOTE | 2022-07-23 13:37 | PC.NURSE ---
On 07/23/22, the student, [Maria D Diaz], provided care and completed [facility] documentation on this patient. I have reviewed the student's documentation and agree with the findings.
[2022-07-23] MEDS: polyethylene glycoL 3350 17 GM POWD.PACK PO (15:50)
[2022-07-23 17:01] LABS: Glucose Point of Care 209 mg/dl (65-105)
[2022-07-23] MEDS: INSULIN ASPART (*BKC) 100 UNITS/ML SUB-Q (17:19)
[2022-07-23] MEDS: TAMSULOSIN HCL 0.4 MG CAPSULE PO (20:31)
[2022-07-23 21:08] LABS: Glucose Point of Care 150 mg/dl (65-105)
[2022-07-24] VITALS (11 sets, daily range): BP systolic 121–141; BP diastolic 69–81; PULSE 60–80; RESP 16–20; TEMP 34.8–36.6; O2SAT 97–100
[2022-07-24] MEDS: ACETAMINOPHEN 500 MG TABLET PO ×5 (00:16→23:08)
[2022-07-24] MEDS: traMADol HCL (*CRX) 50 MG TABLET PO ×5 (00:16→23:08)
[2022-07-24] MEDS: MELATONIN 3 MG TABLET 6 MG PO ×2 (00:31→23:08)
--- NOTE | 2022-07-24 01:22 | PC.NURSE ---
Pt ambulated multiple times tonight with staff. Pt given pain medication and melatonin shortly after midnight and continues to frequently request to ambulate because he cannot sleep. Pt educated on healthy sleep habit and environment, and told he must remain in bed and attempt to sleep in a quiet environment for the first few hours after pain medications and sleeping aid, if still unable to sleep we will happily assist him with additional ambulation in the halls.
[2022-07-24 06:32] LABS: Anion Gap 11 mmol/L (8-16); Blood Urea Nitrogen 99 mg/dL (9-20); Calcium 9.3 mg/dL (8.4-10.2); Carbon Dioxide 25 mmol/L (22-30); Chloride 112 mmol/L (98-107); Estimated CRCL calculation 16 ml/min; Estimated Glomerular Filt Rate 18; Glucose 157 mg/dL (65-110); Potassium 4.2 mmol/L (3.4-5.0); Sodium 148 mmol/L (137-145)
[2022-07-24 08:33] LABS: Glucose Point of Care 154 mg/dl (65-105)
[2022-07-24] MEDS: POLYSACCHARIDE IRON COMPLEX 150 MG CAPSULE PO ×2 (08:41→16:42)
[2022-07-24] MEDS: allopurinoL 100 MG TABLET PO (08:41)
[2022-07-24] MEDS: FENOFIBRATE NANOCRYSTALLIZED 145 MG TABLET PO (08:41)
[2022-07-24] MEDS: PANTOPRAZOLE 40 MG TABLET PO ×2 (08:41→17:28)
[2022-07-24] MEDS: METOPROLOL SUCCINATE EXT REL 25 MG TABCR PO (08:41)
[2022-07-24] MEDS: POTASSIUM CHLORIDE 20 MEQ TABLET.ER 40 MEQ PO (08:41)
[2022-07-24] MEDS: calcitrioL 0.25 MCG CAPSULE PO (08:41)
[2022-07-24] MEDS: OMEGA 3 POLYUNSAT FATTY ACIDS 1 GM CAP PO (08:41)
[2022-07-24] MEDS: ASPIRIN 81 MG CHEWABLE TABLET PO (08:41)
[2022-07-24] MEDS: BETAMETHASONE/CLOTRIMAZOLE CR 15 GM TUBE 1 APPLIC TOPICAL ×2 (08:42→21:54)
[2022-07-24] MEDS: INSULIN GLARGINE (*BKC) 100 UNITS/ML 10 UNITS SUB-Q (08:47)
--- NOTE | 2022-07-24 10:07 | PM.PNNEP ---
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 fluids. Hypernatremia probably precipitated by diuresis post Gustafson placement within adequate oral free fluid intake. - renal function is more or less stable, slight increase in creatinine is just reflective of slow transition of 3rd spaced fluids into the vascular system, stopping fluid restriction and Lasix will help -to d/w Dr Frazier Subjective Date/time seen: 07/24/22 10:07 Chief complaint: Follow-up of renal failure Breathing is okay Swelling is better in lower extremities No shortness of breath Left thigh blister has burst Exam Narrative: elderly normal vital signs as stated, sitting upright in eating, comfortable with breathing at rest, JVD is not seen, regular rate rhythm, no gallop, no murmur lungs: Equal breath sounds, no rub wheeze, soft nontender abdomen, edema decreased, left leg superficial ulcerations, left thigh blister as breast area clean Objective Data Vital Signs Vital Signs: Vital Signs - 24 hr 07/23/22 10:42 07/23/22 12:00 07/23/22 14:45 Temperature 36.4 C Pulse Rate 67 69 Respiratory Rate 18 Blood Pressure 139/75 Pulse Oximetry 95 Oxygen Delivery Room Air 07/23/22 16:00 07/23/22 20:12 07/23/22 20:00 Temperature 36.6 C Pulse Rate 70 70 71 Respiratory Rate 18 Blood Pressure 133/76 Pulse Oximetry 98 Oxygen Delivery 07/24/22 00:00 07/24/22 04:00 07/24/22 06:02 Temperature 36.6 C Pulse Rate 78 76 77 Respiratory Rate 16 Blood Pressure 133/72 Pulse Oximetry 100 Oxygen Delivery 07/24/22 08:41 07/24/22 08:00 07/24/22 09:00 Temperature Pulse Rate 80 60 Respiratory Rate Blood Pressure Pulse Oximetry Oxygen Delivery Room Air Intake/Output Intake/Output: Intake & Output 07/21/22 07/22/22 07/23/22 07/24/22 23:59 23:59 23:59 23:59 Intake Total 1740 1610 1450 300 Output Total 850 2100 2550 700 Balance 890 -490 -1100 -400 Meds/Results Medications: Active Medications Generic Name Dose Route Start Last Admin Trade Name Freq PRN Reason Stop Dose Admin Acetaminophen 500 mg 07/21/22 18:00 07/24/22 05:13 Acetaminophen 500 Mg Tablet PO 500 mg Q6HR ROSS Administration Acetaminophen 650 mg 07/21/22 20:01 07/22/22 16:33 Acetaminophen 325 Mg Tablet PO 650 mg Q6H PRN Administration Mild Pain (1-3) or Fever Allopurinol 100 mg 07/22/22 09:00 07/24/22 08:41 Allopurinol 100 Mg Tablet PO 100 mg DAILY ROSS Administration Aspirin 81 mg 07/22/22 09:00 07/24/22 08:41 Aspirin 81 Mg Chewable Tablet PO 81 mg DAILY ROSS Administration Calcitriol 0.25 mcg 07/22/22 09:00 07/24/22 08:41 Calcitriol 0.25 Mcg Capsule PO 0.25 mcg DAILY ROSS Administration Calcium Carbonate 500 mg 07/21/22 17:30 Calcium Carbonate (Tums) 500 Mg (200 Mg Elemental) PO DAILY PRN Indigestion Clotrimazole 1 applic 07/22/22 09:00 07/24/22 08:42 Betamethasone/Clotrimazole Cr 15 Gm Tube TOPICAL 1 applic Q12HR ROSS Administration Dextrose 12.5 gm 07/21/22 20:01 Dextrose 50% 25 Gm/50 Ml Syringe IV PUSH PRN PRN Hypoglycemia Protocol Fenofibrate 145 mg 07/22/22 09:00 07/24/22 08:41 Fenofibrate Nanocrystallized 145 Mg Tablet PO 145 mg DAILY ROSS Administration Fish Oil 1 gm 03
--- NOTE | 2022-07-24 10:07 | PM.IMPN ---
Progress Note: A&P Assessment and Plan (1) Acute on chronic kidney failure: Code(s): N17.9 - Acute kidney failure, unspecified; N18.9 - Chronic kidney disease, unspecified Status: Acute Assessment and Plan: Creatinine appears to have plateaued. Management per Nephrology (2) Volume overload: Code(s): E87.70 - Fluid overload, unspecified Status: Acute Assessment and Plan: Patient was on IV Lasix and has hypernatremia. Probably from over diuresis. Hold Lasix for now. 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 No shortness of breath at rest. Has a Gustafson catheter in place and is making urine. Exam Const: General: cooperative and ill appearing HENMT: Head: normal to inspection, normocephalic and atraumatic Eyes: General: appearance normal, both eyes and all related structures Conjunctivae: conjunctivae normal Sclera: sclerae normal Neck: Neck: no lymphadenopathy noted and no JVD Resp: Effort & Inspection: normal respiratory effort Auscultation: clear to auscultation bilaterally Cardio: Jugular venous distension: no JVD Rate: regular rate Rhythm: regular rhythm GI: Inspection: normal to inspection GI Palp: No abdominal tenderness and Yes No hepatosplenomegaly present : Penis: Yes normal penis Other: Gustafson catheter be placed Back/Spine/Pelvis: Back: No back tenderness Skin: General skin exam: no jaundice and other ( pale) Neuro: General: patient oriented x3 and moves all extremities Extrem: General: normal to inspection and other ( has blister left thigh, as superficial ulcers left lower extremity) Psych: Appearance: grossly normal Mental Status: mental status grossly normal Other: patient is very hard of hearing Objective Data Vital Signs Vital Signs: Vital Signs - 24 hr 07/23/22 10:42 07/23/22 12:00 07/23/22 14:45 Temperature 97.6 F Pulse Rate 67 69 Respiratory Rate 18 Blood Pressure 139/75 Pulse Oximetry 95 Oxygen Delivery Room Air 07/23/22 16:00 07/23/22 20:12 07/23/22 20:00 Temperature 97.9 F Pulse Rate 70 70 71 Respiratory Rate 18 Blood Pressure 133/76 Pulse Oximetry 98 Oxygen Delivery 07/24/22 00:00 07/24/22 04:00 07/24/22 06:02 Temperature 97.8 F Pulse Rate 78 76 77 Respiratory Rate 16 Blood Pressure 133/72 Pulse Oximetry 100 Oxygen Delivery 07/24/22 08:41 07/24/22 08:00 07/24/22 09:00 Temperature Pulse Rate 80 60 Respiratory Rate Blood Pressure Pulse Oximetry Oxygen Delivery Room Air Intake/Output Intake/Output: Intake & Output 07/21/22 07/22/22 07/23/22 07/24/22 23:59 23:59 23:59 23:59 Intake Total 1740 / 1740 1610 / 1610 1450 / 1450 300 / 300 Output Total 850 / 850 2100 / 2100 2550 / 2550 700 / 700 Balance 890 / 890 -490 / -490 -1100 / -1100 -400 / -400 Meds/Results Medications: Active Medications Generic Name Dose Route Start Last Admin Trade Name Олег PRN Reason Stop Dose Admin Acetaminophen 500 mg 07/21/22 18:00 07/24/22 05:13 Acetaminophen 500 Mg Tablet
[2022-07-24 11:43] LABS: Glucose Point of Care 238 mg/dl (65-105)
[2022-07-24] MEDS: INSULIN ASPART (*BKC) 100 UNITS/ML SUB-Q (11:52)
[2022-07-24 17:09] LABS: Glucose Point of Care 166 mg/dl (65-105)
[2022-07-24 21:43] LABS: Glucose Point of Care 225 mg/dl (65-105)
[2022-07-24] MEDS: TAMSULOSIN HCL 0.4 MG CAPSULE PO (21:54)
[2022-07-25] VITALS (12 sets, daily range): BP systolic 110–133; BP diastolic 59–83; PULSE 62–77; RESP 14–20; TEMP 36.1–36.6; O2SAT 96–100
[2022-07-25] MEDS: ACETAMINOPHEN 325 MG TABLET 650 MG PO (00:46)
[2022-07-25] MEDS: traMADol HCL (*CRX) 50 MG TABLET PO ×3 (05:27→17:27)
[2022-07-25] MEDS: ACETAMINOPHEN 500 MG TABLET PO ×3 (05:27→17:27)
[2022-07-25 06:26] LABS: Anion Gap 12 mmol/L (8-16); Blood Urea Nitrogen 89 mg/dL (9-20); Calcium 9.1 mg/dL (8.4-10.2); Carbon Dioxide 20 mmol/L (22-30); Chloride 113 mmol/L (98-107); Estimated CRCL calculation 16 ml/min; Estimated Glomerular Filt Rate 19; Glucose 213 mg/dL (65-110); Potassium 4.5 mmol/L (3.4-5.0); Sodium 145 mmol/L (137-145)
[2022-07-25 08:22] LABS: Glucose Point of Care 183 mg/dl (65-105)
[2022-07-25] MEDS: OMEGA 3 POLYUNSAT FATTY ACIDS 1 GM CAP PO (10:10)
[2022-07-25] MEDS: calcitrioL 0.25 MCG CAPSULE PO (10:11)
[2022-07-25] MEDS: FENOFIBRATE NANOCRYSTALLIZED 145 MG TABLET PO (10:11)
[2022-07-25] MEDS: allopurinoL 100 MG TABLET PO (10:11)
[2022-07-25] MEDS: PANTOPRAZOLE 40 MG TABLET PO ×2 (10:11→17:24)
[2022-07-25] MEDS: ASPIRIN 81 MG CHEWABLE TABLET PO (10:11)
[2022-07-25] MEDS: POLYSACCHARIDE IRON COMPLEX 150 MG CAPSULE PO ×2 (10:11→17:24)
[2022-07-25] MEDS: INSULIN GLARGINE (*BKC) 100 UNITS/ML 10 UNITS SUB-Q (10:12)
[2022-07-25] MEDS: BETAMETHASONE/CLOTRIMAZOLE CR 15 GM TUBE 1 APPLIC TOPICAL ×2 (10:16→21:25)
[2022-07-25] MEDS: METOPROLOL SUCCINATE EXT REL 25 MG TABCR PO (10:16)
--- NOTE | 2022-07-25 10:24 | PM.IMPN ---
Progress Note: A&P Assessment and Plan (1) Acute on chronic kidney failure: Code(s): N17.9 - Acute kidney failure, unspecified; N18.9 - Chronic kidney disease, unspecified Status: Acute Assessment and Plan: Creatinine appears to have plateaued. Management per Nephrology (2) Hypernatremia: Code(s): E87.0 - Hyperosmolality and hypernatremia Status: Acute Assessment and Plan: Improving. Continue to hold Lasix (3) Volume overload: Code(s): E87.70 - Fluid overload, unspecified Status: Acute Assessment and Plan: Patient was on IV Lasix and has hypernatremia. Probably from over diuresis. Hold Lasix for now. Monitor BMP (4) Dyslipidemia: Code(s): E78.5 - Hyperlipidemia, unspecified Status: Acute Assessment and Plan: Continue home medications (5) CAD (coronary artery disease), autologous vein bypass graft: Code(s): I25.810 - Atherosclerosis of coronary artery bypass graft(s) without angina pectoris Status: Acute Assessment and Plan: Continue aspirin, metoprolol (6) Insulin dependent type 2 diabetes mellitus: Code(s): E11.9 - Type 2 diabetes mellitus without complications; Z79.4 - jail (current) use of insulin Status: Acute Assessment and Plan: Continue on current insulin dose Plan Pending placement Subjective Date/time seen: 05/18 10:24 no new issues overnight Review of Systems Review of Systems: Negative other than HPI Exam Const: General: cooperative and ill appearing HENMT: Head: normal to inspection, normocephalic and atraumatic Eyes: General: appearance normal, both eyes and all related structures Conjunctivae: conjunctivae normal Sclera: sclerae normal Neck: Neck: no lymphadenopathy noted and no JVD Resp: Effort & Inspection: normal respiratory effort Auscultation: clear to auscultation bilaterally Cardio: Jugular venous distension: no JVD Rate: regular rate Rhythm: regular rhythm GI: Inspection: normal to inspection GI Palp: No abdominal tenderness and Yes No hepatosplenomegaly present : Penis: Yes normal penis Other: Gustafson catheter be placed Back/Spine/Pelvis: Back: No back tenderness Skin: General skin exam: no jaundice and other ( pale) Neuro: General: patient oriented x3 and moves all extremities Extrem: General: normal to inspection and other ( has blister left thigh, as superficial ulcers left lower extremity) Psych: Appearance: grossly normal Mental Status: mental status grossly normal Other: patient is very hard of hearing Objective Data Vital Signs Vital Signs: Vital Signs - 24 hr 07/24/22 12:00 07/24/22 14:00 07/24/22 16:00 Temperature 94.7 F L 97.7 F Pulse Rate 78 74 72 Respiratory Rate 20 16 Blood Pressure 135/71 141/81 H Pulse Oximetry 100 97 Oxygen Delivery 07/24/22 16:00 07/24/22 21:55 07/24/22 21:40 Temperature 97.7 F Pulse Rate 67 71 Respiratory Rate 16 Blood Pressure 121/71 Pulse Oximetry 99 Oxygen Delivery Room Air 07/24/22 20:00 07/25/22 00:00 07/25/22 04:00 Temperature Pulse Rate 63 71 73 Respiratory Rate Blood Pressure Pulse Oximetry Oxygen Delivery 07/25/22 04:43 07/25/22 08:33 07/25/22 10:15 Temperature 97.9 F Pulse Rate 77 64 Respiratory Rate 16 14 Blood Pressure 131/75 131/70 Pulse Oximetry 97 96 97 Oxygen Delivery Room Air 07/25/22 10:16 Temperature Pulse Rate 64 Respiratory Rate Blood Pressure Pulse Oximetry Oxygen Delivery Intake/Output Intake/Output: Intake & Output 07/22/22 07/23/22 07/24/22 07/25/22 23:59 23:59 23:59 23:59 Intake Total 1610 / 1610 1450 / 1450 980 / 980 270 / 270 Output Total 2100 / 2100 2550 / 2550 1375 / 1375 300 / 300 Balance -490 / -490 -1100 / -1100 -395 / -395 -30 / -30 Meds/Results Medications: Active Medications Generic Name Dose Route Start Last Admin Trade Name Freq PRN Reason Stop D
--- NOTE | 2022-07-25 11:24 | PM.PNNEP ---
Progress Note: A&P Assessment and Plan (1) SHOAIB (acute kidney injury): Code(s): N17.9 - Acute kidney failure, unspecified Status: Acute Assessment and Plan: seems to be stabilizing due to renal hypoperfusion and necessity of diuretic to maintain fluid/volume status given his known chronic systolic + diastolic heart failure this unfortunately causes his renal function to fluctuate to extremes follow trend of labs (2) Chronic kidney disease, stage 4 (severe): Code(s): N18.4 - Chronic kidney disease, stage 4 (severe) Status: Chronic Assessment and Plan: baseline creatinine has been running around 3.0 - 3.5mg/dl recently however, it has been known to run as high as 4.0mg/d due to systolic + diastolic heart failure, cardiomyopathy/cardiorenal syndrome, hypertension, diabetes, age-related change (3) Hypernatremia: Code(s): E87.0 - Hyperosmolality and hypernatremia Status: Acute Assessment and Plan: improving precipitated by overdiuresis, post-obstructive diuresis following [place] catheter placement, and diminished oral free water intake lasix on hold fluid restriction discontinued follow trend of sodium hold Lasix, stop fluid restriction (both will be temporary changes): continue with changes 07/24 (4) Volume overload: Code(s): E87.70 - Fluid overload, unspecified Status: Acute Assessment and Plan: reasonable response to IV diuretics diuresis on hold given #3 follow volume status (5) Insulin dependent type 2 diabetes mellitus: Code(s): E11.9 - Type 2 diabetes mellitus without complications; Z79.4 - alf (current) use of insulin Status: Acute Assessment and Plan: follow accuchecks glycemic control per hospitalists Will continue to follow. Subjective Date/time seen: 07/25/22 11:24 Chart reviewed -- covering for Dr. Ordaz this weekend; no apparent distress voiced at the time of my visit; sodium improving with current therapy/interventions; resting comfortably when I entered the room; no apparent distress noted; no events overnight or earlier this AM. Exam Narrative: General: elderly Caucasin male in NAD Heart: normal S1 and S2; no rub Lungs: clear anteriorly but decreased at bases Abdomen: soft, nontender, nondistended, positive bowel sounds Extremities: no cyanosis or clubbing; no edema Skin: left LE/leg superficial ulcerations noted Objective Data Vital Signs Vital Signs: Vital Signs Temp Pulse Resp BP Pulse Ox O2 Del Method 07/25/22 10:15 Room Air 07/25/22 10:16 64 07/25/22 10:15 64 14 131/70 97 07/25/22 08:33 96 Room Air 07/25/22 04:43 97.9 F 77 16 131/75 97 07/25/22 04:00 73 07/25/22 00:00 71 07/24/22 20:00 63 07/24/22 21:40 Room Air 07/24/22 21:55 97.7 F 71 16 121/71 99 07/24/22 16:00 67 07/24/22 16:00 97.7 F 72 16 141/81 H 97 Intake/Output Intake/Output: Intake & Output 07/22/22 07/23/22 07/24/22 07/25/22 23:59 23:59 23:59 23:59 Intake Total 1610 1450 980 510 Output Total 2100 2550 1375 300 Balance -490 -1100 -395 210 Meds/Results Medications: Active Medications Generic Name Dose Route Start Last Admin Trade Name Freq PRN Reason Stop Dose Admin Acetaminophen 500 mg 07/21/22 18:00 07/25/22 12:47 Acetaminophen 500 Mg Tablet PO 500 mg Q6HR ROSS Administration Acetaminophen 650 mg 07/21/22 20:01 07/25/22 00:46 Acetaminophen 325 Mg Tablet PO 650 mg Q6H PRN Administration Mild Pain (1-3) or Fever Allopurinol 100 mg 07/22/22 09:00 07/25/22 10:11 Allopurinol 100 Mg Tablet PO 100 mg DAILY ROSS Administration Aspirin 81 mg 07/22/22 09:00 07/25/22 10:11 Aspirin 81 Mg Chewable Tablet PO 81 mg DAILY ROSS Administration Calcitriol 0.25 mcg 07/22/22 09:00 07/25/22 10:11 Calcitriol 0.25 Mcg Capsule PO 0.25 mcg DAILY [facility] Adm
--- NOTE | 2022-07-25 11:24 | P.PNNP_ITS ---
Progress Note: A&P Assessment and Plan (1) SHOAIB (acute kidney injury): Code(s): N17.9 - Acute kidney failure, unspecified Status: Acute Assessment and Plan: * seems to be stabilizing * due to renal hypoperfusion and necessity of diuretic to maintain fluid/volume status given his known chronic systolic + diastolic heart failure * this unfortunately causes his renal function to fluctuate to extremes * follow trend of labs (2) Chronic kidney disease, stage 4 (severe): Code(s): N18.4 - Chronic kidney disease, stage 4 (severe) Status: Chronic Assessment and Plan: * baseline creatinine has been running around 3.0 - 3.5mg/dl recently * however, it has been known to run as high as 4.0mg/d * due to systolic + diastolic heart failure, cardiomyopathy/cardiorenal sy ndrome, hypertension, diabetes, age-related change (3) Hypernatremia: Code(s): E87.0 - Hyperosmolality and hypernatremia Status: Acute Assessment and Plan: * improving * precipitated by overdiuresis, post-obstructive diuresis following sal[place] catheter placement, and diminished oral free water intake * lasix on hold * fluid restriction discontinued * follow trend of sodium * hold Lasix, stop fluid restriction (both will be temporary changes): continue with changes 07/24 (4) Volume overload: Code(s): E87.70 - Fluid overload, unspecified Status: Acute Assessment and Plan: * reasonable response to IV diuretics * diuresis on hold given #3 * follow volume status (5) Insulin dependent type 2 diabetes mellitus: Code(s): E11.9 - Type 2 diabetes mellitus without complications; 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 Subjective Date/time seen: 07/25/22 11:24 Chart reviewed -- covering for Dr. Ordaz this weekend; no apparent distress voiced at the time of my visit; sodium improving with current therapy/interventions; resting comfortably when I entered the room; no apparent distress noted; no events overnight or earlier this AM. Exam Narrative: General: elderly Caucasin male in NAD Heart: normal S1 and S2; no rub Lungs: clear anteriorly but decreased at bases Abdomen: soft, nontender, nondistended, positive bowel sounds Extremities: no cyanosis or clubbing; no edema Skin: left LE/leg superficial ulcerations noted Objective Data Vital Signs Vital Signs: Vital Signs Temp Pulse Resp BP Pulse Ox O2 Del Method 07/25/22 10:15 Room Air 07/25/22 10:16 64 07/25/22 10:15 64 14 131/70 97 07/25/22 08:33 96 Room Air 07/25/22 04:43 97.9 F 77 16 131/75 97 07/25/22 04:00 73 07/25/22 00:00 71 07/24/22 20:00 63 07/24/22 21:40 Room Air 07/24/22 21:55 97.7 F 71 16 121/71 99 07/24/22 16:00 67 07/24/22 16:00 97.7 F 72 16 141/81 H 97 Intake/Output Intake/Output: Intake & Output 07/22/22 07/23/22 07/24/22 07/25/22 23:59 23:59 23:59 23:59 Intake Total 1610 1450 980 510 Output Total 2100 2550 1375 300 Balance -490 -1100 -395 210 Meds/Results Medications:
[2022-07-25 12:13] LABS: Glucose Point of Care 232 mg/dl (65-105)
[2022-07-25] MEDS: INSULIN ASPART (*BKC) 100 UNITS/ML SUB-Q (12:48)
[2022-07-25 17:14] LABS: Glucose Point of Care 159 mg/dl (65-105)
[2022-07-25] MEDS: TAMSULOSIN HCL 0.4 MG CAPSULE PO (21:25)
[2022-07-25 22:09] LABS: Glucose Point of Care 186 mg/dl (65-105)
[2022-07-26] VITALS (10 sets, daily range): BP systolic 120–131; BP diastolic 76–83; PULSE 56–71; RESP 14–20; TEMP 36.2–36.5; O2SAT 97–98
[2022-07-26] MEDS: traMADol HCL (*CRX) 50 MG TABLET PO ×4 (00:03→17:55)
[2022-07-26] MEDS: ACETAMINOPHEN 500 MG TABLET PO ×4 (00:03→17:55)
[2022-07-26] MEDS: MELATONIN 3 MG TABLET 6 MG PO (00:03)
[2022-07-26 06:04] LABS: Anion Gap 9 mmol/L (8-16); Blood Urea Nitrogen 90 mg/dL (9-20); Calcium 8.8 mg/dL (8.4-10.2); Carbon Dioxide 23 mmol/L (22-30); Chloride 112 mmol/L (98-107); Estimated CRCL calculation 17 ml/min; Estimated Glomerular Filt Rate 20; Glucose 139 mg/dL (65-110); Potassium 4.2 mmol/L (3.4-5.0); Sodium 144 mmol/L (137-145)
[2022-07-26] MEDS: OMEGA 3 POLYUNSAT FATTY ACIDS 1 GM CAP PO (08:05)
[2022-07-26] MEDS: FENOFIBRATE NANOCRYSTALLIZED 145 MG TABLET PO (08:05)
[2022-07-26] MEDS: BETAMETHASONE/CLOTRIMAZOLE CR 15 GM TUBE 1 APPLIC TOPICAL ×2 (08:05→21:27)
[2022-07-26] MEDS: POLYSACCHARIDE IRON COMPLEX 150 MG CAPSULE PO ×2 (08:05→17:56)
[2022-07-26] MEDS: allopurinoL 100 MG TABLET PO (08:05)
[2022-07-26] MEDS: calcitrioL 0.25 MCG CAPSULE PO (08:05)
[2022-07-26] MEDS: ASPIRIN 81 MG CHEWABLE TABLET PO (08:05)
[2022-07-26] MEDS: PANTOPRAZOLE 40 MG TABLET PO ×2 (08:05→17:55)
[2022-07-26] MEDS: INSULIN GLARGINE (*BKC) 100 UNITS/ML 10 UNITS SUB-Q (08:12)
[2022-07-26] MEDS: METOPROLOL SUCCINATE EXT REL 25 MG TABCR PO (08:12)
[2022-07-26 08:20] LABS: Glucose Point of Care 121 mg/dl (65-105)
[2022-07-26 11:39] LABS: Glucose Point of Care 180 mg/dl (65-105)
--- NOTE | 2022-07-26 12:50 | PM.IMPN ---
Progress Note: A&P Assessment and Plan (1) Acute on chronic kidney failure: Code(s): N17.9 - Acute kidney failure, unspecified; N18.9 - Chronic kidney disease, unspecified Status: Acute Assessment and Plan: Creatinine appears to have plateaued. Management per Nephrology 07/26/2022 interval history: Patient with acute on chronic kidney disease was diuresed however developed hypernatremia, patient seen by Nephrology and being monitor, patient may need dialysis unable to discharge, remains clinically stable will continue to monitor. (2) Hypernatremia: Code(s): E87.0 - Hyperosmolality and hypernatremia Status: Acute Assessment and Plan: Improving. Continue to hold Lasix (3) Volume overload: Code(s): E87.70 - Fluid overload, unspecified Status: Acute Assessment and Plan: Patient was on IV Lasix and has hypernatremia. Probably from over diuresis. Hold Lasix for now. Monitor BMP (4) Dyslipidemia: Code(s): E78.5 - Hyperlipidemia, unspecified Status: Acute Assessment and Plan: Continue home medications (5) CAD (coronary artery disease), autologous vein bypass graft: Code(s): I25.810 - Atherosclerosis of coronary artery bypass graft(s) without angina pectoris Status: Acute Assessment and Plan: Continue aspirin, metoprolol (6) Insulin dependent type 2 diabetes mellitus: Code(s): E11.9 - Type 2 diabetes mellitus without complications; Z79.4 - long-term (current) use of insulin Status: Acute Assessment and Plan: Continue on current insulin dose Plan Pending placement Subjective Date/time seen: 07/26/22 12:50 HPI-Narrative: This is a 77-year-old male with chronic kidney disease, hypertension, coronary artery disease, and diabetes who presented to the emergency department via EMS from a local assisted living facility for evaluation of weakness. Patient provides the following history. He is known to myself and the hospitalist service from recent admission on 07/03/2022 in which he was admitted for acute on chronic renal failure after presenting with weakness and dizziness. He was judiciously hydrated with improvement in his renal function. He was seen by Nephrology and there were discussions of starting dialysis in the near future however the patient is hesitant and wished to discuss with his primary repairer helper as an outpatient. He was discharged on 07/08/2022 and he had been doing okay up until the last for 5 days when he developed increasing lower extremity edema, now with blisters forming, weakness, and generalized malaise. He lives in assisted living and several people have been sick; the patient reports passing positive for COVID on 07/17/2022. He has not had a fever to his knowledge. He denies headache, sinus congestion, sore throat, and cough. He has had some nausea but that is improving and in fact he is hungry at this time.? He denies vomiting and diarrhea. He has not had chest pain or shortness of breath. Vital signs have been stable since arrival. Pertinent labs include a WBC count of 5.7, stable anemia, normal electrolytes, BUN 97, creatinine 3.20, lactic acid 1.1, CRP 1.3, pro BNP, troponin 0.353. EKG shows sinus rhythm with first-degree AV block and PVCs.? Left bundle branch is noted but that is old. Patient again denies having any chest pain.? He is being admitted in this setting for observation and diuresis given significant edema. 07/26/2022 interval history: Patient with acute on chronic kidney disease was diuresed however developed hypernatremia, patient seen by Nephrology and being monitor, patient may need dialysis unable to discharge, remains clinically stable will continue to monitor. Review of Systems Review of Systems: Negative other than HPI Exam Narrative: Patient is comfortable, NAD HEENT: eyes are clear and none icteric LUNGS: Normal respiratory effort ABD: Not distended Lower extremities: no
--- NOTE | 2022-07-26 13:45 | PM.PNNEP ---
Progress Note: A&P Assessment and Plan (1) SHOAIB (acute kidney injury): Code(s): N17.9 - Acute kidney failure, unspecified Status: Acute Assessment and Plan: seems to be stabilizing due to renal hypoperfusion and necessity of diuretics to maintain fluid/volume status given his known chronic systolic + diastolic heart failure this unfortunately causes his renal function to fluctuate to extremes follow trend of labs (2) Chronic kidney disease, stage 4 (severe): Code(s): N18.4 - Chronic kidney disease, stage 4 (severe) Status: Chronic Assessment and Plan: baseline creatinine has been running around 3.0 - 3.5mg/dl recently however, it has been known to run as high as 4.0mg/dl due to systolic + diastolic heart failure, cardiomyopathy/cardiorenal syndrome, hypertension, diabetes, age-related change (3) Hypernatremia: Code(s): E87.0 - Hyperosmolality and hypernatremia Status: Acute Assessment and Plan: improving precipitated by overdiuresis, post-obstructive diuresis resolved with [place] catheter placement, and diminished oral free water intake lasix on hold fluid restriction discontinued follow trend of sodium given his chronic volume overload, he will eventually need to restart diuretics, possibly a few days after discharge (4) Volume overload: Code(s): E87.70 - Fluid overload, unspecified Status: Acute Assessment and Plan: reasonable response to IV diuretics on admission diuresis on hold given #3 follow volume status will eventually need to restart diuretics, possibly a few days after discharge (5) Insulin dependent type 2 diabetes mellitus: Code(s): E11.9 - Type 2 diabetes mellitus without complications; Z79.4 - snf (current) use of insulin Status: Acute Assessment and Plan: follow accuchecks glycemic control per hospitalists Not opposed to discharge from renal perspective if the patient is otherwise medically stable. Will continue to follow. Subjective Date/time seen: 07/26/22 13:45 No apparent distress noted at the time of my visit; no issues/events overnight or earlier this morning; sodium level improving and renal function relatively stable; no other complaints to report currently. Exam Narrative: General: elderly Caucasin male in NAD Heart: normal S1 and S2; no rub Lungs: clear anteriorly but decreased at bases Abdomen: soft, nontender, nondistended, positive bowel sounds Extremities: no cyanosis or clubbing; no edema Skin: left LE/leg superficial ulcerations noted Objective Data Vital Signs Vital Signs: Vital Signs Temp Pulse Resp BP Pulse Ox O2 Del Method 07/26/22 12:00 71 07/26/22 08:00 70 07/26/22 08:00 Room Air 07/26/22 08:12 67 07/26/22 08:08 67 14 121/83 98 07/26/22 04:00 56 L 07/25/22 21:10 Room Air 07/26/22 00:00 67 07/25/22 20:00 62 07/26/22 05:44 97.7 F 68 18 120/80 97 07/25/22 19:46 97.0 F L 66 20 110/59 L 98 Intake/Output Intake/Output: Intake & Output 07/23/22 07/24/22 07/25/22 07/26/22 23:59 23:59 23:59 23:59 Intake Total 2215 692 0796 710 Output Total 2550 1375 525 Balance -1100 -395 600 710 Meds/Results Medications: Active Medications Generic Name Dose Route Start Last Admin Trade Name Freq PRN Reason Stop Dose Admin Acetaminophen 500 mg 07/21/22 18:00 07/26/22 12:15 Acetaminophen 500 Mg Tablet PO 500 mg Q6HR ROSS Administration Acetaminophen 650 mg 07/21/22 20:01 07/25/22 00:46 Acetaminophen 325 Mg Tablet PO 650 mg Q6H PRN Administration Mild Pain (1-3) or Fever Allopurinol 100 mg 07/22/22 09:00 07/26/22 08:05 Allopurinol 100 Mg Tablet PO 100 mg DAILY ROSS Administration Aspirin 81 mg 07/22/22 09:00 07/26/22 08:05 Aspirin 81 Mg Chewable Tablet PO 81 mg DAILY ROSS Administration Calcitriol 0.25 mcg 06/25
--- NOTE | 2022-07-26 13:45 | P.PNNP_ITS ---
Progress Note: A&P Assessment and Plan (1) SHOAIB (acute kidney injury): Code(s): N17.9 - Acute kidney failure, unspecified Status: Acute Assessment and Plan: * seems to be stabilizing * due to renal hypoperfusion and necessity of diuretics to maintain fluid/volume status given his known chronic systolic + diastolic heart failure * this unfortunately causes his renal function to fluctuate to extremes * follow trend of labs (2) Chronic kidney disease, stage 4 (severe): Code(s): N18.4 - Chronic kidney disease, stage 4 (severe) Status: Chronic Assessment and Plan: * baseline creatinine has been running around 3.0 - 3.5mg/dl recently * however, it has been known to run as high as 4.0mg/dl * due to systolic + diastolic heart failure, cardiomyopathy/cardiorenal syndrome, hypertension, diabetes, age-related change (3) Hypernatremia: Code(s): E87.0 - Hyperosmolality and hypernatremia Status: Acute Assessment and Plan: * improving * precipitated by overdiuresis, post-obstructive diuresis resolved with [place] c atheter placement, and diminished oral free water intake * lasix on hold * fluid restriction discontinued * follow trend of sodium * given his chronic volume overload, he will eventually need to restart d iuretics, possibly a few days after discharge (4) Volume overload: Code(s): E87.70 - Fluid overload, unspecified Status: Acute Assessment and Plan: * reasonable response to IV diuretics on admission * diuresis on hold given #3 * follow volume status * will eventually need to restart diuretics, possibly a few days after discharge (5) Insulin dependent type 2 diabetes mellitus: Code(s): E11.9 - Type 2 diabetes mellitus without complications; 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 Will continue to follow. Subjective Date/time seen: 07/26/22 13:45 No apparent distress noted at the time of my visit; no issues/events overnight or earlier this morning; sodium level improving and renal function relatively stable; no other complaints to report currently. Exam Narrative: General: elderly Caucasin male in NAD Heart: normal S1 and S2; no rub Lungs: clear anteriorly but decreased at bases Abdomen: soft, nontender, nondistended, positive bowel sounds Extremities: no cyanosis or clubbing; no edema Skin: left LE/leg superficial ulcerations noted Objective Data Vital Signs Vital Signs: Vital Signs Temp Pulse Resp BP Pulse Ox O2 Del Method 07/26/22 12:00 71 07/26/22 08:00 70 07/26/22 08:00 Room Air 07/26/22 08:12 67 07/26/22 08:08 67 14 121/83 98 07/26/22 04:00 56 L 07/25/22 21:10 Room Air 07/26/22 00:00 67 07/25/22 20:00 62 07/26/22 05:44 97.7 F 68 18 120/80 97 07/25/22 19:46 97.0 F L 66 20 110/59 L 98 Intake/Output Intake/Output: Intake & Output 07/23/22 07/24/22 07/25/22 07/26/22 23:59 23:59 23:59 23:59 Intake Total 5792 043 5338 710 Output Total 2550 1375 525 Balance
[2022-07-26 17:12] LABS: Glucose Point of Care 197 mg/dl (65-105)
[2022-07-26] MEDS: TAMSULOSIN HCL 0.4 MG CAPSULE PO (21:27)
[2022-07-27] VITALS (7 sets, daily range): BP systolic 129–132; BP diastolic 80–81; PULSE 65–72; RESP 16–20; TEMP 36.3–36.7; O2SAT 74–99
[2022-07-27] MEDS: traMADol HCL (*CRX) 50 MG TABLET PO ×3 (00:24→12:13)
[2022-07-27] MEDS: ACETAMINOPHEN 500 MG TABLET PO ×3 (00:24→12:13)
[2022-07-27] MEDS: MELATONIN 3 MG TABLET 6 MG PO (00:25)
[2022-07-27 06:01] LABS: Hematocrit 36.2 % (42.0-52.0); Hemoglobin 11.4 g/dL (14.0-18.0); Mean Corpuscular HGB Conc 31.5 g/dl (32-36); Mean Corpuscular Hemoglobin 30.4 pg (26-34); Mean Corpuscular Volume 96.5 fl (80-100); Mean Platelet Volume 12.3 fl (7.4-10.4); Platelet Count Result 245 k/mm3 (150-375); Red Blood Count 3.75 M/mm3 (4.6-6.20); Red Cell Distribution Width 19.7 % (11.5-14.5); White Blood Count 6.4 K/mm3 (4.5-10.0)
[2022-07-27 06:15] LABS: Albumin Level 3.5 g/dL (3.5-5.1); Anion Gap 7 mmol/L (8-16); Blood Urea Nitrogen 86 mg/dL (9-20); Calcium 8.9 mg/dL (8.4-10.2); Carbon Dioxide 27 mmol/L (22-30); Chloride 112 mmol/L (98-107); Estimated CRCL calculation 16 ml/min; Estimated Glomerular Filt Rate 19; Glucose 80 mg/dL (65-110); Magnesium 2.2 mg/dL (1.6-2.3); Phosphorus 3.8 mg/dL (2.5-4.5); Potassium 4.2 mmol/L (3.4-5.0); Sodium 146 mmol/L (137-145)
[2022-07-27 08:18] LABS: Glucose Point of Care 174 mg/dl (65-105)
[2022-07-27] MEDS: ASPIRIN 81 MG CHEWABLE TABLET PO (08:44)
[2022-07-27] MEDS: allopurinoL 100 MG TABLET PO (08:44)
[2022-07-27] MEDS: PANTOPRAZOLE 40 MG TABLET PO (08:44)
[2022-07-27] MEDS: FENOFIBRATE NANOCRYSTALLIZED 145 MG TABLET PO (08:45)
[2022-07-27] MEDS: calcitrioL 0.25 MCG CAPSULE PO (08:45)
[2022-07-27] MEDS: BETAMETHASONE/CLOTRIMAZOLE CR 15 GM TUBE 1 APPLIC TOPICAL (08:45)
[2022-07-27] MEDS: INSULIN GLARGINE (*BKC) 100 UNITS/ML 10 UNITS SUB-Q (08:45)
[2022-07-27] MEDS: OMEGA 3 POLYUNSAT FATTY ACIDS 1 GM CAP PO (08:46)
[2022-07-27] MEDS: METOPROLOL SUCCINATE EXT REL 25 MG TABCR PO (08:46)
[2022-07-27] MEDS: POLYSACCHARIDE IRON COMPLEX 150 MG CAPSULE PO (08:47)
[2022-07-27 11:54] LABS: Glucose Point of Care 242 mg/dl (65-105)
[2022-07-27 11:57] LABS: Glucose Point of Care 210 mg/dl (65-105)
--- NOTE | 2022-07-27 11:58 | P.PNNP_ITS ---
Progress Note: A&P Assessment and Plan (1) SHOAIB (acute kidney injury): Code(s): N17.9 - Acute kidney failure, unspecified Status: Acute Assessment and Plan: * seems to be stabilizing * due to renal hypoperfusion and necessity of diuretics to maintain fluid/volume status given his known chronic systolic + diastolic heart failure * this unfortunately causes his renal function to fluctuate to extremes * follow trend of labs (2) Chronic kidney disease, stage 4 (severe): Code(s): N18.4 - Chronic kidney disease, stage 4 (severe) Status: Chronic Assessment and Plan: * baseline creatinine has been running around 3.0 - 3.5mg/dl recently * however, it has been known to run as high as 4.0mg/dl * due to systolic + diastolic heart failure, cardiomyopathy/cardiorenal syndrome, hypertension, diabetes, age-related change (3) Hypernatremia: Code(s): E87.0 - Hyperosmolality and hypernatremia Status: Acute Assessment and Plan: * improving * precipitated by overdiuresis, post-obstructive diuresis resolved with [place] c atheter placement, and diminished oral free water intake * lasix on hold * fluid restriction discontinued (try to ensure adequate oral free water intake) * follow trend of sodium * given his chronic volume overload, he will eventually need to restart diuretics, possibly a few days after discharge (4) Volume overload: Code(s): E87.70 - Fluid overload, unspecified Status: Acute Assessment and Plan: * reasonable response to IV diuretics on admission * diuresis on hold given #3 * follow volume status * will eventually need to restart diuretics, possibly a few days after discharge (5) Insulin dependent type 2 diabetes mellitus: Code(s): E11.9 - Type 2 diabetes mellitus without complications; Z79.4 - snf (current) use of insulin Status: Acute Assessment and Plan: * follow accuchecks * glycemic control per hospitalists Not opposed to discharge from renal perspective if the patient is otherwise medically stable. Will continue to follow. Subjective Date/time seen: 07/27/22 11:58 No new issues or problems to report; no apparent distress voiced at the time of my visit; sodium up a bit by AM labs but still relatively stable as is renal function; no other events overnight or earlier this AM. Exam Narrative: General: elderly Caucasin male in NAD Heart: normal S1 and S2; no rub Lungs: clear anteriorly but decreased at bases Abdomen: soft, nontender, nondistended, positive bowel sounds Extremities: no cyanosis or clubbing; no edema Skin: left LE/leg superficial ulcerations apparent Objective Data Vital Signs Vital Signs: Vital Signs Temp Pulse Resp BP Pulse Ox O2 Del Method 07/27/22 08:00 72 07/27/22 08:46 72 07/27/22 06:33 97.3 F L 67 20 132/80 99 07/27/22 04:00 65 07/27/22 00:00 71 07/26/22 20:00 65 07/26/22 22:03 97.2 F L 68 20 131/76 98 07/26/22 20:00 62 14 98 Room Air 07/26/22 16:00 62 07/26/22 12:00 71 Intake/Output Intake/Output: Intake & Output 07/24/22 07/25/22 07/26/22 07/27/22 23:59 23:59 23:59 23:59 Intake Total 980 1125 1130 880 Output Total 1375 525 Ba
--- NOTE | 2022-07-27 11:58 | PM.PNNEP ---
Progress Note: A&P Assessment and Plan (1) SHOAIB (acute kidney injury): Code(s): N17.9 - Acute kidney failure, unspecified Status: Acute Assessment and Plan: seems to be stabilizing due to renal hypoperfusion and necessity of diuretics to maintain fluid/volume status given his known chronic systolic + diastolic heart failure this unfortunately causes his renal function to fluctuate to extremes follow trend of labs (2) Chronic kidney disease, stage 4 (severe): Code(s): N18.4 - Chronic kidney disease, stage 4 (severe) Status: Chronic Assessment and Plan: baseline creatinine has been running around 3.0 - 3.5mg/dl recently however, it has been known to run as high as 4.0mg/dl due to systolic + diastolic heart failure, cardiomyopathy/cardiorenal syndrome, hypertension, diabetes, age-related change (3) Hypernatremia: Code(s): E87.0 - Hyperosmolality and hypernatremia Status: Acute Assessment and Plan: improving precipitated by overdiuresis, post-obstructive diuresis resolved with [place] catheter placement, and diminished oral free water intake lasix on hold fluid restriction discontinued (try to ensure adequate oral free water intake) follow trend of sodium given his chronic volume overload, he will eventually need to restart diuretics, possibly a few days after discharge (4) Volume overload: Code(s): E87.70 - Fluid overload, unspecified Status: Acute Assessment and Plan: reasonable response to IV diuretics on admission diuresis on hold given #3 follow volume status will eventually need to restart diuretics, possibly a few days after discharge (5) Insulin dependent type 2 diabetes mellitus: Code(s): E11.9 - Type 2 diabetes mellitus without complications; Z79.4 - snf (current) use of insulin Status: Acute Assessment and Plan: follow accuchecks glycemic control per hospitalists Not opposed to discharge from renal perspective if the patient is otherwise medically stable. Will continue to follow. Subjective Date/time seen: 07/27/22 11:58 No new issues or problems to report; no apparent distress voiced at the time of my visit; sodium up a bit by AM labs but still relatively stable as is renal function; no other events overnight or earlier this AM. Exam Narrative: General: elderly Caucasin male in NAD Heart: normal S1 and S2; no rub Lungs: clear anteriorly but decreased at bases Abdomen: soft, nontender, nondistended, positive bowel sounds Extremities: no cyanosis or clubbing; no edema Skin: left LE/leg superficial ulcerations apparent Objective Data Vital Signs Vital Signs: Vital Signs Temp Pulse Resp BP Pulse Ox O2 Del Method 07/27/22 08:00 72 07/27/22 08:46 72 07/27/22 06:33 97.3 F L 67 20 132/80 99 07/27/22 04:00 65 07/27/22 00:00 71 07/26/22 20:00 65 07/26/22 22:03 97.2 F L 68 20 131/76 98 07/26/22 20:00 62 14 98 Room Air 07/26/22 16:00 62 07/26/22 12:00 71 Intake/Output Intake/Output: Intake & Output 07/24/22 07/25/22 07/26/22 07/27/22 23:59 23:59 23:59 23:59 Intake Total 980 1125 1130 880 Output Total 1375 525 Balance -754 568 2263 880 Meds/Results Medications: Active Medications Generic Name Dose Route Start Last Admin Trade Name Freq PRN Reason Stop Dose Admin Acetaminophen 500 mg 07/21/22 18:00 07/27/22 06:05 Acetaminophen 500 Mg Tablet PO 500 mg Q6HR ROSS Administration Acetaminophen 650 mg 07/21/22 20:01 07/25/22 00:46 Acetaminophen 325 Mg Tablet PO 650 mg Q6H PRN Administration Mild Pain (1-3) or Fever Allopurinol 100 mg 07/22/22 09:00 07/27/22 08:44 Allopurinol 100 Mg Tablet PO 100 mg DAILY ROSS Administration Aspirin 81 mg 07/22/22 09:00 07/27/22 08:44 Aspirin 81 Mg Chewable Tablet PO 81 mg DAILY ROSS Administration Calcitriol
[2022-07-27] MEDS: INSULIN ASPART (*BKC) 100 UNITS/ML SUB-Q (12:14)
--- NOTE | 2022-07-27 12:31 | PM.IMPN ---
Progress Note: A&P Assessment and Plan (1) Acute on chronic kidney failure: Code(s): N17.9 - Acute kidney failure, unspecified; N18.9 - Chronic kidney disease, unspecified Status: Acute Assessment and Plan: Creatinine appears to have plateaued. Management per Nephrology 07/27/2022 interval history: Patient with acute on chronic kidney disease was diuresed however developed hypernatremia, patient sodium is improving, and lasix is on hold, patient seen by Nephrology and being monitor, patient may need dialysis unable to discharge, patient has not decided about the dialysis, remains clinically stable will continue to monitor. (2) Hypernatremia: Code(s): E87.0 - Hyperosmolality and hypernatremia Status: Acute Assessment and Plan: Improving. Continue to hold Lasix (3) Volume overload: Code(s): E87.70 - Fluid overload, unspecified Status: Acute Assessment and Plan: Patient was on IV Lasix and has hypernatremia. Probably from over diuresis. Hold Lasix for now. 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 Management per Nephrology 07/27/2022 interval history: Patient with acute on chronic kidney disease was diuresed however developed hypernatremia, patient sodium is improving, and lasix is on hold, patient seen by Nephrology and being monitor, patient may need dialysis unable to discharge, patient has not decided about the dialysis, remains clinically stable will continue to monitor. Exam Narrative: Patient is comfortable, NAD HEENT: eyes are clear and none icteric LUNGS: Normal respiratory effort ABD: Not distended Lower extremities: no edema SKIN: nonjaundiced Neuro: grossly intact. Objective Data Vital Signs Vital Signs: Vital Signs - 24 hr 07/26/22 16:00 07/26/22 20:00 07/26/22 22:03 Temperature 97.2 F L Pulse Rate 62 62 68 Respiratory Rate 14 20 Blood Pressure 131/76 Pulse Oximetry 98 98 Oxygen Delivery Room Air 07/26/22 20:00 07/27/22 00:00 07/27/22 04:00 Temperature Pulse Rate 65 71 65 Respiratory Rate Blood Pressure Pulse Oximetry Oxygen Delivery 07/27/22 06:33 07/27/22 08:46 07/27/22 08:00 Temperature 97.3 F L Pulse Rate 67 72 72 Respiratory Rate 20 Blood Pressure 132/80 Pulse Oximetry 99 Oxygen Delivery Intake/Output Intake/Output: Intake & Output 07/24/22 07/25/22 07/26/22 07/27/22 23:59 23:59 23:59 23:59 Intake Total 980 1125 1130 880 Output Total 1375 525 Balance -698 287 6090 880 Meds/Results Medications: Active Medications Generic Name Dose Route Start Last Admin Trade Name Freq PRN Reason Stop Dose Admin Acetaminophen 500 mg 07/21/22 18:00 07/27/22 12:13 Acetaminophen 500 Mg Tablet PO 500 mg Q6HR ROSS Administration Acetaminophen 650 mg 07/21/22 20:01 07/25/22 00:46 Acetaminophen 325 Mg Tablet PO 650 mg Q6H PRN Administration Mild Pain (1-3) or Fever Allopurinol 100 mg 07/22/22 09:00 07/27/22 08:44 Allopurinol 100 Mg Tablet PO 100 mg DAILY ROSS Administration Aspirin 81 mg 07/22/22 09:00 07/27/22 08:44 Aspirin 81 Mg Chewable Tablet PO 81 mg DAILY ROSS Administration Calcitriol 0.25 mcg 07/22/22 09:00 07/27/22 08:
--- NOTE | 2022-07-27 16:12 | PM.DS ---
DS: Admitting Diagnosis Discharge Date 07/27/2022 Admitting Diagnosis Weakness DS: Discharge Diagnosis Discharge Diagnosis (1) Acute on chronic kidney failure: Code(s): N17.9 - Acute kidney failure, unspecified; N18.9 - Chronic kidney disease, unspecified Status: Acute Assessment and Plan: Creatinine appears to have plateaued. Management per Nephrology 07/27/2022 interval history: Patient with acute on chronic kidney disease was diuresed however developed hypernatremia, patient sodium is improving, and lasix is on hold, patient seen by Nephrology and being monitor, patient may need dialysis unable to discharge, patient has not decided about the dialysis, remains clinically stable will continue to monitor. (2) Hypernatremia: Code(s): E87.0 - Hyperosmolality and hypernatremia Status: Acute Assessment and Plan: Improving. Continue to hold Lasix (3) Volume overload: Code(s): E87.70 - Fluid overload, unspecified Status: Acute Assessment and Plan: Patient was on IV Lasix and has hypernatremia. Probably from over diuresis. Hold Lasix for now. Monitor BMP (4) Dyslipidemia: Code(s): E78.5 - Hyperlipidemia, unspecified Status: Acute Assessment and Plan: Continue home medications (5) CAD (coronary artery disease), autologous vein bypass graft: Code(s): I25.810 - Atherosclerosis of coronary artery bypass graft(s) without angina pectoris Status: Acute Assessment and Plan: Continue aspirin, metoprolol (6) Insulin dependent type 2 diabetes mellitus: Code(s): E11.9 - Type 2 diabetes mellitus without complications; Z79.4 - retirement (current) use of insulin Status: Acute Assessment and Plan: Continue on current insulin dose Plan Pending placement DS: Summary Hospital Course Reason for hospitalization: Weakness. Narrative: This is a 77-year-old male with chronic kidney disease, hypertension, coronary artery disease, and diabetes who presented to the emergency department via EMS from a local assisted living facility for evaluation of weakness. Patient provides the following history. He is known to myself and the hospitalist service from recent admission on 07/03/2022 in which he was admitted for acute on chronic renal failure after presenting with weakness and dizziness. He was judiciously hydrated with improvement in his renal function. He was seen by Nephrology and there were discussions of starting dialysis in the near future however the patient is hesitant and wished to discuss with his primary caul fat puller as an outpatient. He was discharged on 07/08/2022 and he had been doing okay up until the last for 5 days when he developed increasing lower extremity edema, now with blisters forming, weakness, and generalized malaise. He lives in assisted living and several people have been sick; the patient reports passing positive for COVID on 07/17/2022. He has not had a fever to his knowledge. He denies headache, sinus congestion, sore throat, and cough. He has had some nausea but that is improving and in fact he is hungry at this time.? He denies vomiting and diarrhea. He has not had chest pain or shortness of breath. Vital signs have been stable since arrival. Pertinent labs include a WBC count of 5.7, stable anemia, normal electrolytes, BUN 97, creatinine 3.20, lactic acid 1.1, CRP 1.3, pro BNP, troponin 0.353. EKG shows sinus rhythm with first-degree AV block and PVCs.? Left bundle branch is noted but that is old. Patient again denies having any chest pain.? He is being admitted in this setting for observation and diuresis given significant jaleel Hospital Course: Patient with acute on chronic kidney disease was diuresed however developed hypernatremia, patient sodium is improving, and lasix is on hold, patient seen by Nephrology and being monitor, patient may need dialysis unable to discharge, patient has not decided about the dialysis, yassine
== END 2022-07-27 16:51 | DRG 682 ==
LOC: ANHED 12:48 → ANHIMU 15:11 → ANH2MED 07-23 00:11
PROVIDERS: Emergency Medicine; Hospitalist; Internal Medicine Nephrology; Physician Assistant; Admitting Provider Chiropractor; Emergency Provider Nurse Practitioner Family; PCP Internal Medicine; Visit Provider Family Medicine
DX: N17.9 Acute kidney failure, unspecified (principal); I50.43 Acute on chronic combined systolic (congestive) and diastolic (congestive) heart failure; E87.0 Hyperosmolality and hypernatremia; I25.810 Atherosclerosis of coronary artery bypass graft(s) without angina pectoris; I12.9 Hypertensive chronic kidney disease with stage 1 through stage 4 chronic kidney disease, or unspecified chronic kidney disease; E11.22 Type 2 diabetes mellitus with diabetic chronic kidney disease; N18.4 Chronic kidney disease, stage 4 (severe); G89.4 Chronic pain syndrome; I25.5 Ischemic cardiomyopathy; D63.1 Anemia in chronic kidney disease; N25.81 Secondary hyperparathyroidism of renal origin; I13.10 Hypertensive heart and chronic kidney disease without heart failure, with stage 1 through stage 4 chronic kidney disease, or unspecified chronic kidney disease; E78.5 Hyperlipidemia, unspecified; Z20.822 Contact with and (suspected) exposure to COVID-19; Z79.4 Long term (current) use of insulin; Z79.82 Long term (current) use of aspirin; Z86.73 Personal history of transient ischemic attack (TIA), and cerebral infarction without residual deficits; Z95.1 Presence of aortocoronary bypass graft; Z95.5 Presence of coronary angioplasty implant and graft
CPT/HCPCS: 36415; 71045; 80048; 80053; 80069; 81001; 82948; 83605; 83735; 83880; 84484; 85025; 85027; 85610; 85730; 86140; 87040; 87636; 93005; 93970; 96361; 96374; 96376; 97161; 97165; 99285; A9270; G0378; J1815; J1940; J7030; J7040